=== PATIENT | male | born 1955 | race American Indian/Alaskan Native ===

== ENCOUNTER 2022-01-04 00:30 | Inpatient (IN) | payer OTHER ==
[2022-01-04] MEDS ORDERED: MORPHINE 4 MG/1 ML INJ IV ONE (02:43)
[2022-01-04] MEDS ORDERED: FAMOTIDINE 20 MG/2 ML INJ IV ONE (02:43)
[2022-01-04] MEDS ORDERED: SUCRALFATE 1 GM TAB PO ONE (02:43)
[2022-01-04] MEDS ORDERED: ONDANSETRON 4 MG/2 ML INJ IV ONE ×3 (02:43→05:18)
[2022-01-04 03:38] LABS: Basophils # (Auto) 0.1 K/mm3 (0.0-0.1); Basophils % (Auto) 0.4 % (0.0-1.8); Hemoglobin 14.2 gm/dl (11.8-15.2); Lymphocytes # (Auto) 0.8 K/mm3 (1.2-5.4); Lymphocytes % (Auto) 5.2 % (13.4-35.0); Mean Corpuscular HGB Conc 34 % (32-34); Mean Corpuscular Volume 93 fl (84-94); Monocytes # (Auto) 1.5 K/mm3 (0.0-0.8); Monocytes % (Auto) 9.3 % (0.0-7.3); Platelet Count 210 K/mm3 (140-440); Red Blood Count 4.51 M/mm3 (3.65-5.03); Red Cell Distribution Width 13.6 % (13.2-15.2)
[2022-01-04 04:03] LABS: Alanine Aminotransferase 39 units/L (7-56); Albumin 4.2 g/dL (3.9-5); BUN/Creatinine Ratio 14; Blood Urea Nitrogen 14 mg/dL (9-20); Calcium 9.5 mg/dL (8.4-10.2); Hemolysis Index 6
--- NOTE | 2022-01-04 04:10 | Emergency Department Report ---
ED Abdominal Pain HPI - General Chief Complaint: Abdominal Pain Stated Complaint: ABD PAIN Source: patient, EMS Mode of arrival: Ambulatory Limitations: No Limitations - History of Present Illness Initial Comments: Patient is a 66-year-old male with a history of morbid obesity, hypertension, and vjv-iilknwc-jebjbkrzj diabetes who presents to the ED with complaint of acute onset persistent epigastric pain that radiates to the right upper quadrant area with intractable nausea and vomiting for the last 2 days. Patient states that the symptoms have been constant and persistent and that in the last 12 hours and that the pain radiates to the mid posterior thoracic area. The patient states that he has not been able to keep anything down because of persistent pain and vomiting. Patient denies fever, chills, dizziness, syncope, diarrhea, chest pain, shortness of breath, back pain, change in vision, traumatic injury or heavy lifting, hematemesis, hemoptysis, cough, palpitations, testicular pain, hematuria or low back pain. MD Complaint: abdominal pain (Epigastric), other (nausea and vomiting) -: Sudden, days(s) (2) Location: RUQ, epigastric Radiation: RUQ, epigastric, back (Mid posterior thoracic area) Migration to: no migration Severity: severe Severity scale (0 -10): 10 Quality: cramping, aching, sharp Consistency: constant Improves With: nothing Worsens With: vomiting Context: possible food poisoning Associated Symptoms: denies other symptoms, nausea, vomiting, anorexia. denies: diarrhea, fever, chills, constipation, dysuria, hematemesis, hematochezia, melena, hematuria, syncope - Related Data Allergies Allergy/AdvReac Type Severity Reaction Status Date / Time No Known Allergies Allergy Verified 01/04/22 02:46 ED Review of Systems ROS: Stated complaint: ABD PAIN Other details as noted in HPI Constitutional: denies: chills, fever Eyes: denies: eye pain, eye discharge, vision change ENT: denies: ear pain, throat pain Respiratory: denies: cough, shortness of breath, wheezing Cardiovascular: denies: chest pain, palpitations Endocrine: no symptoms reported Gastrointestinal: abdominal pain (epigastric pain), nausea, vomiting. denies: diarrhea, constipation, hematemesis, hematochezia Genitourinary: denies: urgency, dysuria Musculoskeletal: denies: back pain, joint swelling, arthralgia Skin: denies: rash, lesions Neurological: denies: headache, weakness, paresthesias Psychiatric: denies: anxiety, depression Hematological/Lymphatic: denies: easy bleeding, easy bruising ED Past Medical Hx - Past Medical History Previous Medical History?: Yes Hx Hypertension: Yes Hx Diabetes: Yes ED Physical Exam - General Limitations: No Limitations General appearance: alert, in no apparent distress - Head Head exam: Present: atraumatic, normocephalic, normal inspection - Eye Eye exam: Present: normal appearance, PERRL, EOMI Pupils: Present: normal accommodation - ENT ENT exam: Present: normal exam, normal orophraynx, mucous membranes moist, TM's normal bilaterally, normal external ear exam - Neck Neck exam: Present: normal inspection, full ROM. Absent: tenderness - Respiratory Respiratory exam: Present: normal lung sounds bilaterally. Absent: respiratory distress, wheezes, rales, rhonchi, chest wall tenderness, accessory muscle use, decreased breath sounds, prolonged expiratory - Cardiovascular Cardiovascular Exam: Present: normal rhythm, tachycardia, normal heart sounds. Absent: systolic murmur, diastolic murmur, rubs, gallop - GI/Abdominal GI/Abdominal exam: Present: soft, tenderness (Palpable epigastric and right upper quadrant tenderness), normal bowel sounds. Absent: guarding, rebound, hyperactive bowel sounds, hypoactive bowel sounds, organomegaly, mass, bruit, pulsatile mass - Extremities Exam Extremities exam: Present: normal inspection, full ROM, normal capillary refill. Absent: tenderness - Back Exam Back exam: Present: normal inspection, full ROM. Absent: tenderness, CVA tenderness (R), CVA tenderness (L), muscle spasm, paraspinal tenderness, vertebral tenderness - Neurological Exam Neurological exam: Present: alert, oriented X3, CN II-XII intact, normal gait, reflexes normal - Psychiatric Psychiatric exam: Present: normal affect, normal mood - Skin Skin exam: Present: warm, dry, intact, normal color. Absent: rash ED Course Vital Signs 01/04/22 01/04/22 00:30 03:14 Temperature 98.2 F Pulse Rate 102 H Respiratory 16 16 Rate Blood Pressure 140/80 [Right] O2 Sat by Pulse 98 Oximetry - Reevaluation(s) Reevaluation #1: 01/04/22 05:07 I paged and discussed the patient's case with Dr. Segundo Andres the general surgeon on-call who advised the patient be treated with IV antibiotics and pain medication as well as IV fluids and that the hospitalist physician on-call admit the patient for evaluation and that Dr. Raymond shall consult on the patient upon a dmission. 01/04/22 05:08 ED Medical Decision Making - Lab Data Result diagrams: 01/04/22 03:06 01/04/22 03:06 - Radiology Data Radiology results: report reviewed, image reviewed [facility] [address] [place] [address] Cat Scan Report Signed Patient: IRVIN KONG MR#: [id number] : 1955 Acct:[id number] Age/Sex: 66 / M ADM Date: 01/04/22 Loc: ED Attending Dr: Ordering Physician: MAGED HERNANDEZ Date of Service: 01/04/22 Procedure(s): CT abdomen pelvis w con Accession Number(s): [id number] cc: MAGED HERNANDEZ CT abdomen pelvis w con INDICATION / CLINICAL INFORMATION: epigastric pain. TECHNIQUE: Axial CT images were obtained through the abdomen and pelvis after 100 cc of Omnipaque [address] scans at this location are performed using CT dose reduction for ALARA by means of automated exposure control. COMPARISON: None available. FINDINGS: LOWER CHEST: Bibasilar volume loss. LIVER: Hepatic steatosis. GALLBLADDER/BILIARY TREE: Gallbladder is distended with layering sludge and stones with gallbladder wall thickening and pericholecystic stranding. Common bile duct is normal in caliber. PANCREAS: No significant abnormality SPLEEN: No significant abnormality ADRENALS: No significant abnormality RIGHT KIDNEY / URETER: Nonobstructive right nephrolithiasis. Tiny right renal cyst. No acute findings. LEFT KIDNEY / URETER: Nonobstructive left nephrolithiasis. No hydronephrosis. URINARY BLADDER: Bladder is partially decompressed, though grossly unr emarkable. REPRODUCTIVE ORGANS: No significant abnormality STOMACH / BOWEL: Small bowel is normal in caliber. The colon is unremarkable. The appendix is normal in caliber. LYMPH NODES: No significant adenopathy. VASCULATURE: No significant abnormality. OTHER: No free air, free fluid, or focal fluid collection is identified. SKELETAL SYSTEM: No acute osseous findings. IMPRESSION: 1. Findings consistent with acute cholecystitis. 2. No other acute findings. 2. Hepatic steatosis. 4. Nonoperative bilateral nephrolithiasis. No urolithiasis or hydronephrosis. Signer Name: Hugh Spangler MD Signed: 01/04/2022 4:35 AM Workstation Name: [id number] Transcribed By: NIKOLAS Dictated By: HUGH SPANGLER MD Electronically Authenticated By: HUGH SPANGLER MD Signed Date/Time: 01/04/22434 DD/ 1 TD/TT: - Medical Decision Making This is a 66-year-old male with a history of morbid obesity, hypertension, and wjz-gtblorv-qrojqvpzv diabetes who presents to the ED with complaint of acute onset persistent epigastric pain that radiates to the right upper quadrant area with intractable nausea and vomiting for the last 2 days. Patient states that the symptoms have been constant and persistent and that in the last 12 hours and that the pain radiates to the mid posterior thoracic area. The patient states that he has not been able to keep anything down because of persistent pain and vomiting. In the ED, patient is alert and oriented x3 and is not in any distress. Patient appears to be in pain. Patient was treated for pain and also given antacids, antiemetics as well as normal saline 1 L IV bolus x1. Lab test results were reviewed and showed acute leukocytosis of 15,900, total bilirubin of 2.70, and AST of 86. The abdomen pelvis CT scan with IV contrast showed findings consistent with acute cholecystitis, hepatic steatosis and nonoperative bilateral nephrolithiasis. No urolithiasis or hydronephrosis. On reevaluation, patient pain and nausea and vomiting is well controlled medication. Patient was treated also in the ED with Zosyn 3.375 g IV x1. Patient was Case was discussed with the general surgeon on-call Dr. Segundo Andres who advised that the patient was given IV antibiotics, pain medication with normal saline IV fluids and that the hospitalist physician on-call be paged to admit the patient and he shall consult on the patient upon admission. I therefore paged and discussed the patient case with the GI hospitalist physician on-call Dr. Dennis who admitted the patient to the hospital. - Differential Diagnosis GERD; Pancreatitis; Gallstones; gastritis; cholecystitis Critical care attestation.: If time is entered above; I have spent that time in minutes in the direct care of this critically ill patient, excluding procedure time. ED Disposition Clinical Impression: Abdominal pain, acute, epigastric, Nausea and vomiting in adult patient, Cholelithiasis and acute cholecystitis without obstruction Disposition: 01 HOME / SELF CARE / HOMELESS Is pt being admited?: No Does the pt Need Aspirin: No Condition: Stable Instructions: Nausea and Vomiting, Adult, [id number], Abdominal Pain, Adult, [id number], Cholecystitis, [id number] Referrals: [facility] [Provider Group] - 7-10 days Time of Disposition: 04:10 Print Language: MALTESE
--- NOTE | 2022-01-04 04:40 | Cat Scan Report ---
CT abdomen pelvis w con INDICATION / CLINICAL INFORMATION: epigastric pain. TECHNIQUE: Axial CT images were obtained through the abdomen and pelvis after 100 cc of Omnipaque [address] scans at this location are performed using CT dose reduction for ALARA by means of automated exposure control. COMPARISON: None available. FINDINGS: LOWER CHEST: Bibasilar volume loss. LIVER: Hepatic steatosis. GALLBLADDER/BILIARY TREE: Gallbladder is distended with layering sludge and stones with gallbladder w all thickening and pericholecystic stranding. Common bile duct is normal in caliber. PANCREAS: No significant abnormality SPLEEN: No significant abnormality ADRENALS: No significant abnormality RIGHT KIDNEY / URETER: Nonobstructive right nephrolithiasis. Tiny right renal cyst. No acute findings . LEFT KIDNEY / URETER: Nonobstructive left nephrolithiasis. No hydronephrosis. URINARY BLADDER: Bladder is partially decompressed, though grossly unremarkable. REPRODUCTIVE ORGANS: No significant abnormality STOMACH / BOWEL: Small bowel is normal in caliber. The colon is unremarkable. The appendix is normal in caliber. LYMPH NODES: No significant adenopathy. VASCULATURE: No significant abnormality. OTHER: No free air, free fluid, or focal fluid collection is identified. SKELETAL SYSTEM: No acute osseous findings. IMPRESSION: 1. Findings consistent with acute cholecystitis. 2. No other acute findings. 2. Hepatic steatosis. 4. Nonoperative bilateral nephrolithiasis. No urolithiasis or hydronephrosis. Signer Name: Alonzo Spangler MD Signed: 01/04/2022 4:35 AM Workstation Name: [id number]
[2022-01-04] MEDS ORDERED: PIPERACILLIN/TAZOBACTAM 3.375 3.375 GM/50 ML BAG IV ONE (04:50)
[2022-01-04 05:00] LABS: Bacteria,Urine 1+ /HPF (Negative); Hyaline Casts,Urine 4 /LPF; Mucus,Urine 3+ /HPF
[2022-01-04] MEDS ORDERED: HYDROmorphone 0.5 MG/0.5 ML INJ IV PRN (05:15)
[2022-01-04] MEDS ORDERED: METOCLOPRAMIDE 10 MG/2 ML INJ IV PRN (05:15)
[2022-01-04] MEDS ORDERED: HYDROmorphone 1 MG/1 ML INJ IV ONE (05:18)
[2022-01-04] MEDS: ACETAMINOPHEN 325 MG TAB PO PRN (05:36)
[2022-01-04 06:13] LABS: Bilirubin,Urine Small (Negative); Blood,Urine Trace (Negative); Color,Urine Amber (Yellow); Ictotest,Urine Positive (Negative); Urobilinogen,Urine < 2.0 mg/dL (<2.0)
--- NOTE | 2022-01-04 08:04 | History and Physical Report ---
History of Present Illness Date of examination: 01/04/22 Date of admission: 01/04/2022 Chief complaint: Epigastric pain associated with nausea vomiting of 2 days duration History of present illness: CT abdomen and pelvis with contrast findings consistent with acute cho lecystitis, hepatic steatosis, nonoperative bilateral nephrolithiasis without hydronephrosis Morbidly obese 66-year-old male patient with no significant past medical history. Not on any medications follows with [facility] presented to the emergency room with abdominal pain associated with nausea vomiting for the last 2 days Patient's pain is mainly epigastric area and right upper quadrant, Patient has vomited 2 to 3 x 24 hours just liquid no hematemesis or melena, denies diarrhea. Patient had COVID-pneumonia few months ago where he was admitted to [facility]ator followed by rehab stay for 1 and half months Patient did not have similar symptoms in the past. Initial evaluation in the emergency room with CT abdomen and pelvis with contrast findings consistent with acute cholecystitis. ER physician has already contacted surgeon Dr. Raymond, patient is n.p.o. status Past History Past Medical History: denies: diabetes, hypertension Past Surgical History: Other (Collapsed lung status post surgery, low back surgery) Social history: denies: smoking, alcohol abuse, prescription drug abuse Family history: no significant family history Medications and Allergies Allergies Allergy/AdvReac Type Severity Reaction Status Date / Time No Known Allergies Allergy Verified 01/04/22 02:46 Home Medications Medication Instructions Recorded Confirmed Last Taken Type No Known Home Medications [No 01/04/22 01/04/22 Unknown History Reported Home Medications] Active Meds: Active Medications Acetaminophen (Acetaminophen 325 Mg Tab) 650 mg PO Q4H PRN PRN Reason: Pain MILD(1-3)/Fever >100.5/HIGUERA Last Admin: 01/04/22 05:36 Dose: 650 mg Hydromorphone HCl (Hydromorphone 0.5 Mg/0.5 Ml Inj) 0.5 mg IV Q3H PRN PRN Reason: Pain , Severe (7-10) Sodium Chloride (Nacl 0.9% 1000 Ml) 1,000 mls @ 125 mls/hr IV DIRECT ZEB Metoclopramide HCl (Metoclopramide 10 Mg/2 Ml Inj) 10 mg IV Q6H PRN PRN Reason: Nausea And Vomiting Last Admin: 01/04/22 05:36 Dose: 10 mg Sodium Chloride (Sodium Chloride 0.9% 10 Ml Flush Syringe) 10 ml IV BID ZEB Review of Systems Constitutional: no weight loss, no weight gain, no fever, no chills Ears, nose, mouth and throat: no nasal congestion, no nasal discharge Cardiovascular: no chest pain, no orthopnea, no palpitations Respiratory: no cough, no shortness of breath Gastrointestinal: abdominal pain, nausea, vomiting Genitourinary Male: no dysuria, no hematuria Musculoskeletal: no myalgias, no arthritis Integumentary: no rash, no lesions Neurological: no tingling, no seizures, no syncope Psychiatric: no anxiety, no depression Endocrine: no cold intolerance, no heat intolerance Hematologic/Lymphatic: no easy bruising, no easy bleeding Allergic/Immunologic: no urticaria, no allergic rhinitis Exam - Constitutional Vitals: Temp Pulse Resp BP Pulse Ox 98.2 F 102 H 22 140/80 98 01/04/22 00:30 01/04/22 00:30 01/04/22 05:38 01/04/22 00:30 01/04/22 00:30 General appearance: Present: no acute distress, obese - EENT Eyes: Present: PERRL, EOM intact - Neck Neck: Present: supple, normal ROM - Respiratory Respiratory effort: normal Respiratory: bilateral: diminished, negative: rales, rhonchi, wheezing - Cardiovascular Rhythm: regular Heart Sounds: Present: S1 & S2 - Extremities Extremities: no ischemia, No edema - Abdominal General gastrointestinal: Present: soft, tender (Vague tenderness epigastrium and right upper quadrant) - Integumentary Integumentary: Present: clear, warm - Musculoskeletal Musculoskeletal: strength equal bilaterally - Psychiatric Psychiatric: appropriate mood/affect, cooperative - Neurologic Neurologic: moves all extremities HEART Score - HEART Score Troponin: Troponin T < 0.010 ng/mL (0.00-0.029) 01/04/22 03:06 Results - Labs CBC & Chem 7: 01/05/22 04:40 01/05/22 04:40 Labs: Abnormal lab results 01/04/22 01/04/22 01/04/22 Range/Units 03:06 03:06 Unknown WBC 15.9 H (4.5-11.0) K/mm3 Lymph % (Auto) 5.2 L (13.4-35.0) % [place] % (Auto) 9.3 H (0.0-7.3) % Lymph # (Auto) 0.8 L (1.2-5.4) K/mm3 [place] # (Auto) 1.5 H (0.0-0.8) K/mm3 Seg Neutrophils % 85.1 H (40.0-70.0) % Seg Neutrophils # 13.5 H (1.8-7.7) K/mm3 Glucose 201 H (75-100) mg/dL Total Bilirubin 2.70 H (0.1-1.2) mg/dL AST 86 H (5-40) units/L Ur Specific [place] 1.035 H (1.003-1.030) Urine WBC (Auto) 7.0 H (0.0-6.0) /HPF Assessment and Plan -- Acute cholecystitis Surgery evaluation noted and appreciated Advised clear liquids, patient's symptoms improved Supportive care -- Intractable nausea vomiting; Due to acute cholecystitis Treat the underlying cause IV fluids, antiemetics and supportive care -- Hypertension; IV hydralazine as needed Closely monitor blood pressures -- Hyperglycemia; Accu-Chek sliding scale coverage Check A1c. Closely monitor -- Morbid obesity; BMI 46.6 Patient advised diet modification, exercise as tolerated And weight reduction when he is medically stable Patient may benefit from bariatric surgical consultation as outpatient When he is medically stable for weight reduction program -- Full CODE STATUS; Advance care planning; I extensively discussed with the patient His diagnosis, I discussed with treatment plan, I discussed the surgery consult and possible surgical procedure I discussed with hospital stay and discharge planning when he is medically stable He had numerous questions I answered all of them, additional 32 minutes Closely monitor the patient and adjust management as needed Plan of care reviewed with the patient and his nurse follow surgical consult and recommendations I spent total 62 minutes coordinating this admission
[2022-01-04] MEDS ORDERED: ONDANSETRON 4 MG/2 ML INJ IV PRN ×2 (08:21→10:00)
[2022-01-04] MEDS: SODIUM CHLORIDE 0.9% 1000 ML 1,000 ML IV SCH (08:45)
[2022-01-04] MEDS ORDERED: MORPHINE 4 MG/1 ML INJ IV PRN (10:00)
[2022-01-04] MEDS ORDERED: hydrALAZINE 20 MG/1 ML INJ IV PRN (10:00)
--- NOTE | 2022-01-04 12:36 | Consultation ---
History of Present Illness Consult date: 01/04/22 Reason for consult: abdominal pain - History of present illness History of present illness: Patient is a 66-year-old male with a history of morbid obesity, hypertension, and ojz-ogjnfln-hmpczmxhf diabetes who presents to the ED with complaint of acute onset persistent epigastric pain that radiates to the right upper quadrant area with intractable nausea and vomiting for the last 2 days. Patient states that the symptoms have been constant and persistent and that in the last 12 hours and that the pain radiates to the mid posterior thoracic area. The patient states that he has not been able to keep anything down because of persistent pain and vomiting. Patient denies fever, chills, dizziness, syncope, diarrhea, chest pain, shortness of breath, back pain, change in vision, traumatic injury or heavy lifting, hematemesis, hemoptysis, cough, palpitations, testicular pain, hematuria or low back pain. He does have gerd. He denies a hx of jaundice or pancreatitis. Past History Past Medical History: denies: diabetes, hypertension Past Surgical History: Other (Collapsed lung status post surgery, low back surgery) Social history: denies: smoking, alcohol abuse, prescription drug abuse Family history: no significant family history Medications and Allergies Allergies Allergy/AdvReac Type Severity Reaction Status Date / Time No Known Allergies Allergy Verified 01/04/22 02:46 Active Meds: Active Medications Acetaminophen (Acetaminophen 325 Mg Tab) 650 mg PO Q4H PRN PRN Reason: Pain MILD(1-3)/Fever >100.5/HIGUERA Last Admin: 01/04/22 05:36 Dose: 650 mg Enoxaparin Sodium (Enoxaparin 40 Mg/0.4 Ml Inj) 40 mg SUB-Q QDAY@2200 ZEB; Protocol Hydralazine HCl (Hydralazine 20 Mg/1 Ml Inj) 10 mg IV Q4HR PRN PRN Reason: Hypertension Hydromorphone HCl (Hydromorphone 0.5 Mg/0.5 Ml Inj) 0.5 mg IV Q3H PRN PRN Reason: Pain , Severe (7-10) Last Admin: 01/04/22 11:33 Dose: 0.5 mg Sodium Chloride (Nacl 0.9% 1000 Ml) 1,000 mls @ 125 mls/hr IV DIRECT ZEB Last Admin: 01/04/22 08:45 Dose: 125 mls/hr Piperacillin Sod/Tazobactam Sod (Zosyn/Ns 4.5gm/100ml) 4.5 gm in 100 mls @ 200 mls/hr IV Q8H ZEB; Protocol Ibuprofen (Ibuprofen 600 Mg Tab) 600 mg PO Q6H PRN PRN Reason: Pain, Mild (1-3) Metoclopramide HCl (Metoclopramide 10 Mg/2 Ml Inj) 10 mg IV Q6H PRN PRN Reason: Nausea And Vomiting Last Admin: 01/04/22 05:36 Dose: 10 mg Morphine Sulfate (Morphine 2 Mg/1 Ml Inj) 2 mg IV Q4H PRN PRN Reason: Pain, Moderate (4-6) Morphine Sulfate (Morphine 4 Mg/1 Ml Inj) 4 mg IV Q4H PRN PRN Reason: Pain , Severe (7-10) Ondansetron HCl (Ondansetron 4 Mg/2 Ml Inj) 4 mg IV Q4H PRN PRN Reason: Nausea And Vomiting Sodium Chloride (Sodium Chloride 0.9% 10 Ml Flush Syringe) 10 ml IV BID [facility] Exam Vital Signs Temp Pulse Resp BP Pulse Ox 98.2 F 102 H 16 140/80 98 01/04/22 00:30 01/04/22 00:30 01/04/22 00:30 01/04/22 00:30 01/04/22 00:30 - General physical appearance Positive: well developed, no distress, moderate pain, obese - Neck Positive: no masses, no bruits, trachea midline - Respiratory Positive: normal expansion - Cardiovascular Rhythm: regular - Extremities Extremities: no ischemia, No edema - Abdomen Abdomen: Present: soft, tender, bowel sounds normal. Absent: distended, masses, rebound - Integumentary no rash - Neurologic Neurologic: alert and oriented to time, place and person, motor strength and sensation are grossly intact, CN II-XII intact Results - Labs 01/04/22 03:06 01/04/22 03:06 Abnormal lab results 01/04/22 01/04/22 01/04/22 Range/Units 03:06 03:06 Unknown WBC 15.9 H (4.5-11.0) K/mm3 Lymph % (Auto) 5.2 L (13.4-35.0) % [place] % (Auto) 9.3 H (0.0-7.3) % Lymph # (Auto) 0.8 L (1.2-5.4) K/mm3 [place] # (Auto) 1.5 H (0.0-0.8) K/mm3 Seg Neutrophils % 85.1 H (40.0-70.0) % Seg Neutrophils # 13.5 H (1.8-7.7) K/mm3 Glucose 201 H (75-100) mg/dL Total Bilirubin 2.70 H (0.1-1.2) mg/dL AST 86 H (5-40) units/L Ur Specific [place] 1.035 H (1.003-1.030) Urine WBC (Auto) 7.0 H (0.0-6.0) /HPF Diabetes panel 01/04/22 Range/Units 03:06 Sodium 143 (137-145) mmol/L Potassium 3.7 (3.6-5.0) mmol/L Chloride 101.1 (98-107) mmol/L Carbon Dioxide 22 (22-30) mmol/L BUN 14 (9-20) mg/dL Creatinine 1.0 (0.8-1.3) mg/dL Glucose 201 H (75-100) mg/dL Calcium 9.5 (8.4-10.2) mg/dL AST 86 H (5-40) units/L ALT 39 (7-56) units/L Alkaline Phosphatase 88 (35-129) units/L Total Protein 7.3 (6.3-8.2) g/dL Albumin 4.2 (3.9-5) g/dL Calcium panel 01/04/22 Range/Units 03:06 Calcium 9.5 (8.4-10.2) mg/dL Albumin 4.2 (3.9-5) g/dL Pituitary panel 01/04/22 Range/Units 03:06 Sodium 143 (137-145) mmol/L Potassium 3.7 (3.6-5.0) mmol/L Chloride 101.1 (98-107) mmol/L Carbon Dioxide 22 (22-30) mmol/L BUN 14 (9-20) mg/dL Creatinine 1.0 (0.8-1.3) mg/dL Glucose 201 H (75-100) mg/dL Calcium 9.5 (8.4-10.2) mg/dL Adrenal panel 01/04/22 Range/Units 03:06 Sodium 143 (137-145) mmol/L Potassium 3.7 (3.6-5.0) mmol/L Chloride 101.1 (98-107) mmol/L Carbon Dioxide 22 (22-30) mmol/L BUN 14 (9-20) mg/dL Creatinine 1.0 (0.8-1.3) mg/dL Glucose 201 H (75-100) mg/dL Calcium 9.5 (8.4-10.2) mg/dL Total Bilirubin 2.70 H (0.1-1.2) mg/dL AST 86 H (5-40) units/L ALT 39 (7-56) units/L Alkaline Phosphatase 88 (35-129) units/L Total Protein 7.3 (6.3-8.2) g/dL Albumin 4.2 (3.9-5) g/dL Assessment and Plan Pt with acute calculous cholecystitis. No pancreatitis no jaundice. Pain already with signs of improvement. Will advance to clear liq diet at thsi time. Cont iv ab for leukocytosis. OK to try low fat diet later today.
--- NOTE | 2022-01-04 14:46 | XRay Report ---
CHEST 2 VIEWS INDICATION: Routine prior to surgery. COMPARISON: None FINDINGS: SUPPORT DEVICES: None. HEART: Within normal limits. LUNGS/PLEURA: Minimal patchy left greater than right basilar airspace disease with mild elevation of the right hemidiaphragm. No pneumothorax. ADDITIONAL FINDINGS: None. IMPRESSION: 1. Lung findings as above. Signer Name: Ryan Solis MD Signed: 01/04/2022 2:42 PM Workstation Name: [id number]
[2022-01-04] MEDS: PIPERACIL/TAZOBACTA 4.5/NS 100 4.5 GM/100 ML VIAL IV SCH ×2 (15:34→20:47)
[2022-01-04] MEDS: MORPHINE 2 MG/1 ML INJ IV PRN (20:40)
[2022-01-04] MEDS: ENOXAPARIN 40 MG/0.4 ML INJ SUB-Q SCH (21:00)
[2022-01-05] MEDS: SODIUM CHLORIDE 0.9% 1000 ML 1,000 ML IV SCH (02:14)
[2022-01-05 04:54] LABS: Basophils # (Auto) 0.1 K/mm3 (0.0-0.1); Basophils % (Auto) 0.4 % (0.0-1.8); Hematocrit 43.8 % (35.5-45.6); Hemoglobin 14.5 gm/dl (11.8-15.2); Lymphocytes % (Auto) 7.3 % (13.4-35.0); Mean Corpuscular HGB Conc 33 % (32-34); Mean Corpuscular Volume 95 fl (84-94); Monocytes # (Auto) 1.1 K/mm3 (0.0-0.8); Monocytes % (Auto) 7.7 % (0.0-7.3); Platelet Count 164 K/mm3 (140-440); Red Blood Count 4.63 M/mm3 (3.65-5.03); Red Cell Distribution Width 13.8 % (13.2-15.2)
[2022-01-05 05:17] LABS: BUN/Creatinine Ratio 15; Blood Urea Nitrogen 12 mg/dL (9-20); Hemolysis Index 73
[2022-01-05] MEDS: PIPERACIL/TAZOBACTA 4.5/NS 100 4.5 GM/100 ML VIAL IV SCH ×3 (05:40→21:40)
[2022-01-05] MEDS: MORPHINE 2 MG/1 ML INJ IV PRN ×2 (05:40→21:41)
[2022-01-05] MEDS: IBUPROFEN 600 MG TAB PO PRN (09:47)
--- NOTE | 2022-01-05 10:48 | Progress Note ---
Assessment and Plan Pt with acute calculous cholecystitis. No pancreatitis no jaundice. Pain already with signs of improvement. Will advance to clear liq diet at thsi time. Cont iv ab for leukocytosis. Patient did not get the low-fat diet requested last night. We will attempt to advance diet today. If no pain patient can be discharged tomorrow. White count also remains elevated at 12,000. Continue IV antibiotics through the next 24 hours. Subjective Date of service: 01/05/22 Patient Reports: Positive: no new complaints, feels better Narrative: Patient did not get the low-fat diet requested last night. We will attempt to advance diet today. If no pain patient can be discharged tomorrow. White count also remains elevated at 12,000. Continue IV antibiotics through the next 24 hours. Objective Vital Signs - 12hr 01/04/22 01/05/22 01/05/22 23:54 04:19 05:40 Temperature 97.8 F 97.9 F Pulse Rate 109 H 110 H Respiratory 28 H 28 H 20 Rate Blood Pressure 127/71 117/60 O2 Sat by Pulse 87 91 Oximetry 01/05/22 07:43 Temperature 98.1 F Pulse Rate 107 H Respiratory 17 Rate Blood Pressure 98/55 O2 Sat by Pulse 93 Oximetry - Labs 01/05/22 04:40 01/05/22 04:40 Diabetes panel 01/05/22 Range/Units 04:40 Sodium 138 (137-145) mmol/L Potassium 4.4 (3.6-5.0) mmol/L Chloride 101.2 (98-107) mmol/L Carbon Dioxide 26 (22-30) mmol/L BUN 12 (9-20) mg/dL Creatinine 0.8 (0.8-1.3) mg/dL Glucose 124 H (75-100) mg/dL Calcium 9.0 (8.4-10.2) mg/dL Calcium panel 01/05/22 Range/Units 04:40 Calcium 9.0 (8.4-10.2) mg/dL Pituitary panel 01/05/22 Range/Units 04:40 Sodium 138 (137-145) mmol/L Potassium 4.4 (3.6-5.0) mmol/L Chloride 101.2 (98-107) mmol/L Carbon Dioxide 26 (22-30) mmol/L BUN 12 (9-20) mg/dL Creatinine 0.8 (0.8-1.3) mg/dL Glucose 124 H (75-100) mg/dL Calcium 9.0 (8.4-10.2) mg/dL Adrenal panel 01/05/22 Range/Units 04:40 Sodium 138 (137-145) mmol/L Potassium 4.4 (3.6-5.0) mmol/L Chloride 101.2 (98-107) mmol/L Carbon Dioxide 26 (22-30) mmol/L BUN 12 (9-20) mg/dL Creatinine 0.8 (0.8-1.3) mg/dL Glucose 124 H (75-100) mg/dL Calcium 9.0 (8.4-10.2) mg/dL
--- NOTE | 2022-01-05 18:46 | Progress Note ---
Assessment and Plan Assessment and plan: -- Acute cholecystitis/symptoms improved Surgery evaluation noted and appreciated On clear liquids, surgeon advance diet to regular diet this afternoon Continue current management -- Intractable nausea vomiting; resolved Supportive care -- Hypertension; IV hydralazine as needed Closely monitor blood pressures -- Hyperglycemia; Accu-Chek sliding scale coverage Check A1c. Closely monitor -- Morbid obesity; BMI 46.6 Patient advised diet modification, exercise as tolerated And weight reduction when he is medically stable Patient may benefit from bariatric surgical consultation as outpatient When he is medically stable for weight reduction program -- Full CODE STATUS; Advance care planning; I extensively discussed with the patient His diagnosis, I discussed with treatment plan, I discussed the surgery consult and possible surgical procedure I discussed with hospital stay and discharge planning when he is medically stable He had numerous questions I answered all of them, additional 32 minutes Closely monitor the patient and adjust management as needed Plan of care reviewed with the patient and his nurse follow surgical consult and recommendations Closely monitor the patient and adjust management as needed Possible discharge in 1 to 2 days if patient continues to improve Surgeons recommendations noted and appreciated Plan of care reviewed with the patient and his nurse History Interval history: I have seen and examined the patient at the bedside this morning Patient's chart and medications reviewed, Tolerating clear liquids Patient feels slightly better denies any abdominal pain/nausea vomiting However complains of some back pain and right shoulder pain Vital signs reviewed Hospitalist Physical - Constitutional Vitals: Temp Pulse Resp BP Pulse Ox 98.2 F 105 H 16 109/43 92 01/05/22 11:10 01/05/22 11:10 01/05/22 11:10 01/05/22 11:10 01/05/22 11:10 General appearance: Present: no acute distress, well-nourished, obese - EENT Eyes: Present: PERRL, EOM intact - Neck Neck: Present: supple, normal ROM - Respiratory Respiratory effort: normal Respiratory: bilateral: diminished, negative: rales, rhonchi, wheezing - Cardiovascular Rhythm: regular Heart Sounds: Present: S1 & S2 - Extremities Extremities: no ischemia, No edema - Abdominal General gastrointestinal: soft, non-tender, non-distended, normal bowel sounds - Integumentary Integumentary: Present: clear, warm - Psychiatric Psychiatric: appropriate mood/affect, cooperative - Neurologic Neurologic: moves all extremities HEART Score - HEART Score Troponin: Troponin T < 0.010 ng/mL (0.00-0.029) 01/04/22 03:06 Results - Labs CBC & Chem 7: 01/05/22 04:40 01/05/22 04:40 Labs: Laboratory Last Values WBC 13.8 K/mm3 (4.5-11.0) H 01/05/22 04:40 RBC 4.63 M/mm3 (3.65-5.03) 01/05/22 04:40 Hgb 14.5 gm/dl (11.8-15.2) 01/05/22 04:40 Hct 43.8 % (35.5-45.6) 01/05/22 04:40 MCV 95 fl (84-94) H 01/05/22 04:40 MCH 31 pg (28-32) 01/05/22 04:40 MCHC 33 % (32-34) 01/05/22 04:40 RDW 13.8 % (13.2-15.2) 01/05/22 04:40 Plt Count 164 K/mm3 (140-440) 01/05/22 04:40 Lymph % (Auto) 7.3 % (13.4-35.0) L 01/05/22 04:40 [place] % (Auto) 7.7 % (0.0-7.3) H 01/05/22 04:40 Eos % (Auto) 0.0 % (0.0-4.3) 01/05/22 04:40 Baso % (Auto) 0.4 % (0.0-1.8) 01/05/22 04:40 Lymph # (Auto) 1.0 K/mm3 (1.2-5.4) L 01/05/22 04:40 [place] # (Auto) 1.1 K/mm3 (0.0-0.8) H 01/05/22 04:40 Eos # (Auto) 0.0 K/mm3 (0.0-0.4) 01/05/22 04:40 Baso # (Auto) 0.1 K/mm3 (0.0-0.1) 01/05/22 04:40 Seg Neutrophils % 84.6 % (40.0-70.0) H 01/05/22 04:40 Seg Neutrophils # 11.7 K/mm3 (1.8-7.7) H 01/05/22 04:40 Sodium 138 mmol/L (137-145) 01/05/22 04:40 Potassium 4.4 mmol/L (3.6-5.0) 01/05/22 04:40 Chloride 101.2 mmol/L (98-107) 01/05/22 04:40 Carbon Dioxide 26 mmol/L (22-30) 01/05/22 04:40 Anion Gap 15 mmol/L 01/05/22 04:40 BUN 12 mg/dL (9-20) 01/05/22 04:40 Creatinine 0.8 mg/dL (0.8-1.3) 01/05/22 04:40 Estimated GFR > 60 ml/min 01/05/22 04:40 BUN/Creatinine Ratio 15 % 01/05/22 04:40 Glucose 124 mg/dL (75-100) H 01/05/22 04:40 POC Glucose 110 mg/dL (70-105) H 01/04/22 16:47 Calcium 9.0 mg/dL (8.4-10.2) 01/05/22 04:40 Total Bilirubin 2.70 mg/dL (0.1-1.2) H 01/04/22 03:06 AST 86 units/L (5-40) H 01/04/22 03:06 ALT 39 units/L (7-56) 01/04/22 03:06 Alkaline Phosphatase 88 units/L (35-129) 01/04/22 03:06 Troponin T < 0.010 ng/mL (0.00-0.029) 01/04/22 03:06 Total Protein 7.3 g/dL (6.3-8.2) 01/04/22 03:06 Albumin 4.2 g/dL (3.9-5) 01/04/22 03:06 Albumin/Globulin Ratio 1.4 % 01/04/22 03:06 Lipase 19 units/L (13-60) 01/04/22 03:06 Urine Color [place] (Yellow) 01/04/22 Unknown Urine Turbidity Cloudy (Clear) 01/04/22 Unknown Urine pH 5.0 (5.0-7.0) 01/04/22 Unknown Ur Specific [place] 1.035 (1.003-1.030) H 01/04/22 Unknown Urine Protein 100 mg/dl mg/dL (Negative) 01/04/22 Unknown Urine Glucose (UA) Negative mg/dL (Negative) 01/04/22 Unknown Urine Ketones Negative mg/dL (Negative) 01/04/22 Unknown Urine Blood Trace (Negative) 01/04/22 Unknown Urine Nitrite Negative (Negative) 01/04/22 Unknown Ur Reducing Substances Not Reportable 01/04/22 Unknown Urine Bilirubin Small (Negative) 01/04/22 Unknown Urine Ictotest Positive (Negative) 01/04/22 Unknown Urine Urobilinogen < 2.0 mg/dL (<2.0) 01/04/22 Unknown Ur Leukocyte Esterase Negative (Negative) 01/04/22 Unknown Urine WBC (Auto) 7.0 /HPF (0.0-6.0) H 01/04/22 Unknown Urine RBC (Auto) 8.0 /HPF (0.0-6.0) 01/04/22 Unknown U Epithel Cells (Auto) 1.0 /HPF (0-13.0) 01/04/22 Unknown Urine Bacteria (Auto) 1+ /HPF (Negative) 01/04/22 Unknown Hyaline Casts 4 /LPF 01/04/22 Unknown Urine Mucus 3+ /HPF 01/04/22 Unknown Active Medications - Current Medications Current Medications: Generic Name Dose Route Start Last Admin Trade Name Freq PRN Reason Stop Dose Admin Acetaminophen 650 mg 01/04/22 05:15 01/04/22 05:36 Acetaminophen 325 Mg Tab PO 650 mg Q4H PRN Administration Pain MILD(1-3)/Fever >100.5/HIGUERA Enoxaparin Sodium 40 mg 01/04/22 22:00 01/04/22 21:00 Enoxaparin 40 Mg/0.4 Ml Inj SUB-Q 40 mg QDAY@2200 ZEB Administration Protocol Hydralazine HCl 10 mg 01/04/22 10:00 Hydralazine 20 Mg/1 Ml Inj IV Q4HR PRN Hypertension Sodium Chloride 1,000 mls @ 125 mls/hr 01/04/22 05:15 01/05/22 02:14 Nacl 0.9% 1000 Ml IV 125 mls/hr DIRECT ZEB Administration Piperacillin Sod/Tazobactam Sod 4.5 gm in 100 mls @ 200 mls/hr 01/04/22 12:00 01/05/22 13:16 Zosyn/Ns 4.5gm/100ml IV 200 mls/hr Q8H ZEB Administration Protocol Ibuprofen 600 mg 01/04/22 10:00 01/05/22 09:47 Ibuprofen 600 Mg Tab PO 600 mg Q6H PRN Administration Pain, Mild (1-3) Metoclopramide HCl 10 mg 01/04/22 05:15 01/04/22 05:36 Metoclopramide 10 Mg/2 Ml Inj IV 10 mg Q6H PRN Administration Nausea And Vomiting Morphine Sulfate 2 mg 01/04/22 10:00 01/05/22 05:40 Morphine 2 Mg/1 Ml Inj IV 2 mg Q4H PRN Administration Pain, Moderate (4-6) Morphine Sulfate 4 mg 01/04/22 10:00 Morphine 4 Mg/1 Ml Inj IV Q4H PRN Pain , Severe (7-10) Ondansetron HCl 4 mg 01/04/22 10:00 01/04/22 20:57 Ondansetron 4 Mg/2 Ml Inj IV 4 mg Q4H PRN Administration Nausea And Vomiting Sodium Chloride 10 ml 01/04/22 10:00 01/05/22 09:47 Sodium Chloride 0.9% 10 Ml Flush Syringe IV 10 ml BID ZEB Administration
--- NOTE | 2022-01-05 18:52 | Event Note ---
Date: 01/05/22 Patient's nurse called and reported that patient had some hematuria Will recommend continuous Leblanc catheterization, input output monitoring We will also obtain CT abdomen and pelvis with and without contrast Place the patient n.p.o. from midnight, follow imaging studies Closely monitor overnight and consult urology after imaging studies if needed. Plan of care reviewed with the patient's nurse
[2022-01-05] MEDS: ENOXAPARIN 40 MG/0.4 ML INJ SUB-Q SCH (21:41)
[2022-01-06] MEDS: SODIUM CHLORIDE 0.9% 1000 ML 1,000 ML IV SCH (02:27)
[2022-01-06 05:46] LABS: Basophils # (Auto) 0.1 K/mm3 (0.0-0.1); Basophils % (Auto) 0.4 % (0.0-1.8); Eosinophils % (Auto) 0.2 % (0.0-4.3); Hematocrit 44.1 % (35.5-45.6); Hemoglobin 14.3 gm/dl (11.8-15.2); Lymphocytes # (Auto) 1.1 K/mm3 (1.2-5.4); Lymphocytes % (Auto) 9.7 % (13.4-35.0); Mean Corpuscular HGB Conc 33 % (32-34); Mean Corpuscular Volume 96 fl (84-94); Monocytes # (Auto) 0.9 K/mm3 (0.0-0.8); Monocytes % (Auto) 7.6 % (0.0-7.3); Platelet Count 191 K/mm3 (140-440); Red Blood Count 4.61 M/mm3 (3.65-5.03); Red Cell Distribution Width 14.3 % (13.2-15.2)
[2022-01-06 06:06] LABS: BUN/Creatinine Ratio 15; Blood Urea Nitrogen 15 mg/dL (9-20); Hemolysis Index 5
[2022-01-06] MEDS: PIPERACIL/TAZOBACTA 4.5/NS 100 4.5 GM/100 ML VIAL IV SCH ×3 (06:46→19:32)
--- NOTE | 2022-01-06 08:15 | Progress Note ---
Assessment and Plan Assessment and plan: Assessment and plan; CT abdomen and pelvis with and without contrast; 01/06/2022 reviewed worsening features of acute cholecystitis Bilateral nephrolithiasis without ureteral calculus or hydronephrosis no additional etiology for hematuria Trace right basilar pleural effusion next mild inflammatory stranding edema surrounding pancreas is most likely reactive and secondary to cholecystitis --Hematuria last night; Leblanc catheterization, urine analysis and urine cultures CT abdomen and pelvis with and without contrast Urology consult N.p.o. status, IV fluids -- Acute cholecystitis/symptoms improved Surgery evaluation noted and appreciated On clear liquids, surgeon advance diet to regular diet this afternoon Continue current management -- Intractable nausea vomiting; resolved Supportive care -- Hypertension; IV hydralazine as needed Closely monitor blood pressures -- Hyperglycemia; Accu-Chek sliding scale coverage Check A1c. Closely monitor -- Morbid obesity; BMI 46.6 Patient advised diet modification, exercise as tolerated And weight reduction when he is medically stable Patient may benefit from bariatric surgical consultation as outpatient When he is medically stable for weight reduction program -- Full CODE STATUS; Advance care planning; I extensively discussed with the patient His diagnosis, I discussed with treatment plan, I discussed the surgery consult and possible surgical procedure I discussed with hospital stay and discharge planning when he is medically stable He had numerous questions I answered all of them, additional 32 minutes Closely monitor the patient and adjust management as needed Plan of care reviewed with the patient and his nurse follow surgical consult and recommendations Closely monitor the patient and adjust management as needed Possible discharge in 1 to 2 days if patient continues to improve Surgeons recommendations noted and appreciated Plan of care reviewed with the patient and his nurse 01/05/2022; patient with acute cholecystitis, surgeon following, clear liquids, IV antibiotics Had an episode of hematuria, CT abdomen and pelvis, Leblanc catheterization, urine analysis H&H monitoring 01/07/2020; patient's hematuria significantly improved patient has high colored urine in the urine bag CT abdomen and pelvis with and without contrast findings reviewed no acute renal findings except for chronic renal stones no ureteric stone H&H stable, no active bleeding, no need for urology consult, patient will follow urologist outpatient on discharge, History Interval history: I have seen and examined the patient at the bedside this morning Patient's chart and medications reviewed Patient had an episode of hematuria last night Leblanc catheter was placed this morning with high colored questionable blood in the urine bag H&H is stable CT abdomen and pelvis with and without contrast Hospitalist Physical - Constitutional Vitals: Temp Pulse Resp BP Pulse Ox 97.8 F 99 H 24 93/62 94 01/06/22 04:51 01/06/22 08:04 01/06/22 04:51 01/06/22 08:04 01/06/22 08:04 General appearance: Present: no acute distress, obese HEART Score - HEART Score Troponin: Troponin T < 0.010 ng/mL (0.00-0.029) 01/04/22 03:06 Results - Labs CBC & Chem 7: 01/06/22 05:04 01/06/22 05:04 Labs: Laboratory Last Values WBC 11.4 K/mm3 (4.5-11.0) H 01/06/22 05:04 RBC 4.61 M/mm3 (3.65-5.03) 01/06/22 05:04 Hgb 14.3 gm/dl (11.8-15.2) 01/06/22 05:04 Hct 44.1 % (35.5-45.6) 01/06/22 05:04 MCV 96 fl (84-94) H 01/06/22 05:04 MCH 31 pg (28-32) 01/06/22 05:04 MCHC 33 % (32-34) 01/06/22 05:04 RDW 14.3 % (13.2-15.2) 01/06/22 05:04 Plt Count 191 K/mm3 (140-440) 01/06/22 05:04 Lymph % (Auto) 9.7 % (13.4-35.0) L 01/06/22 05:04 [place] % (Auto) 7.6 % (0.0-7.3) H 01/06/22 05:04 Eos % (Auto) 0.2 % (0.0-4.3) 01/06/22 05:04 Baso % (Auto) 0.4 % (0.0-1.8) 01/06/22 05:04 Lymph # (Auto) 1.1 K/mm3 (1.2-5.4) L 01/06/22 05:04 [place] # (Auto) 0.9 K/mm3 (0.0-0.8) H 01/06/22 05:04 Eos # (Auto) 0.0 K/mm3 (0.0-0.4) 01/06/22 05:04 Baso # (Auto) 0.1 K/mm3 (0.0-0.1) 01/06/22 05:04 Seg Neutrophils % 82.1 % (40.0-70.0) H 01/06/22 05:04 Seg Neutrophils # 9.3 K/mm3 (1.8-7.7) H 01/06/22 05:04 Sodium 141 mmol/L (137-145) 01/06/22 05:04 Potassium 4.1 mmol/L (3.6-5.0) 01/06/22 05:04 Chloride 102.1 mmol/L (98-107) 01/06/22 05:04 Carbon Dioxide 25 mmol/L (22-30) 01/06/22 05:04 Anion Gap 18 mmol/L 01/06/22 05:04 BUN 15 mg/dL (9-20) 01/06/22 05:04 Creatinine 1.0 mg/dL (0.8-1.3) 01/06/22 05:04 Estimated GFR > 60 ml/min 01/06/22 05:04 BUN/Creatinine Ratio 15 % 01/06/22 05:04 Glucose 123 mg/dL (75-100) H 01/06/22 05:04 POC Glucose 110 mg/dL (70-105) H 01/04/22 16:47 Calcium 9.0 mg/dL (8.4-10.2) 01/06/22 05:04 Total Bilirubin 2.70 mg/dL (0.1-1.2) H 01/04/22 03:06 AST 86 units/L (5-40) H 01/04/22 03:06 ALT 39 units/L (7-56) 01/04/22 03:06 Alkaline Phosphatase 88 units/L (35-129) 01/04/22 03:06 Troponin T < 0.010 ng/mL (0.00-0.029) 01/04/22 03:06 Total Protein 7.3 g/dL (6.3-8.2) 01/04/22 03:06 Albumin 4.2 g/dL (3.9-5) 01/04/22 03:06 Albumin/Globulin Ratio 1.4 % 01/04/22 03:06 Lipase 19 units/L (13-60) 01/04/22 03:06 Urine Color [place] (Yellow) 01/04/22 Unknown Urine Turbidity Cloudy (Clear) 01/04/22 Unknown Urine pH 5.0 (5.0-7.0) 01/04/22 Unknown Ur Specific [place] 1.035 (1.003-1.030) H 01/04/22 Unknown Urine Protein 100 mg/dl mg/dL (Negative) 01/04/22 Unknown Urine Glucose (UA) Negative mg/dL (Negative) 01/04/22 Unknown Urine Ketones Negative mg/dL (Negative) 01/04/22 Unknown Urine Blood Trace (Negative) 01/04/22 Unknown Urine Nitrite Negative (Negative) 01/04/22 Unknown Ur Reducing Substances Not Reportable 01/04/22 Unknown Urine Bilirubin Small (Negative) 01/04/22 Unknown Urine Ictotest Positive (Negative) 01/04/22 Unknown Urine Urobilinogen < 2.0 mg/dL (<2.0) 01/04/22 Unknown Ur Leukocyte Esterase Negative (Negative) 01/04/22 Unknown Urine WBC (Auto) 7.0 /HPF (0.0-6.0) H 01/04/22 Unknown Urine RBC (Auto) 8.0 /HPF (0.0-6.0) 01/04/22 Unknown U Epithel Cells (Auto) 1.0 /HPF (0-13.0) 01/04/22 Unknown Urine Bacteria (Auto) 1+ /HPF (Negative) 01/04/22 Unknown Hyaline Casts 4 /LPF 01/04/22 Unknown Urine Mucus 3+ /HPF 01/04/22 Unknown Leblanc/IV: Voiding Method Urinal Active Medications - Current Medications Current Medications: Generic Name Dose Route Start Last Admin Trade Name Freq PRN Reason Stop Dose Admin Acetaminophen 650 mg 01/04/22 05:15 01/04/22 05:36 Acetaminophen 325 Mg Tab PO 650 mg Q4H PRN Administration Pain MILD(1-3)/Fever >100.5/HIGUERA Enoxaparin Sodium 40 mg 01/04/22 22:00 01/05/22 21:41 Enoxaparin 40 Mg/0.4 Ml Inj SUB-Q 40 mg QDAY@2200 ZEB Administration Protocol Hydralazine HCl 10 mg 01/04/22 10:00 Hydralazine 20 Mg/1 Ml Inj IV Q4HR PRN Hypertension Sodium Chloride 1,000 mls @ 125 mls/hr 01/04/22 05:15 01/06/22 02:27 Nacl 0.9% 1000 Ml IV 125 mls/hr DIRECT ZEB Administration Piperacillin Sod/Tazobactam Sod 4.5 gm in 100 mls @ 200 mls/hr 01/04/22 12:00 01/06/22 06:46 Zosyn/Ns 4.5gm/100ml IV 200 mls/hr Q8H ZEB Administration Protocol Ibuprofen 600 mg 01/04/22 10:00 01/05/22 09:47 Ibuprofen 600 Mg Tab PO 600 mg Q6H PRN Administration Pain, Mild (1-3) Metoclopramide HCl 10 mg 01/04/22 05:15 01/04/22 05:36 Metoclopramide 10 Mg/2 Ml Inj IV 10 mg Q6H PRN Administration Nausea And Vomiting Morphine Sulfate 2 mg 01/04/22 10:00 01/05/22 21:41 Morphine 2 Mg/1 Ml Inj IV 2 mg Q4H PRN Administration Pain, Moderate (4-6) Morphine Sulfate 4 mg 01/04/22 10:00 Morphine 4 Mg/1 Ml Inj IV Q4H PRN Pain , Severe (7-10) Ondansetron HCl 4 mg 01/04/22 10:00 01/04/22 20:57 Ondansetron 4 Mg/2 Ml Inj IV 4 mg Q4H PRN Administration Nausea And Vomiting Sodium Chloride 10 ml 01/04/22 10:00 01/05/22 21:46 Sodium Chloride 0.9% 10 Ml Flush Syringe IV 10 ml BID ZEB Administration
--- NOTE | 2022-01-06 10:55 | Cat Scan Report ---
CT ABDOMEN AND PELVIS WITHOUT AND WITH CONTRAST INDICATION / CLINICAL INFORMATION: Hematuria. TECHNIQUE: Axial CT images were obtained through the abdomen before and after 100 mL Omnipaque [address] scans at this location are performed using CT dose reduction for ALARA by means of automated exposure control. COMPARISON: 01/04/2022 CTA abdomen pelvis. FINDINGS: LOWER CHEST: Development of a trace right basilar pleural effusion. Otherwise stable bibasilar chroni c interstitial scarring. LIVER: Diffuse hepatic steatosis without suspicious hepatic mass. GALLBLADDER/BILIARY: Persistent layering gallstones and biliary sludge. Hydropic gallbladder with gael rounding inflammatory stranding that has progressed since the prior exam. Findings are again most con sistent with acute cholecystitis. No evidence for choledocholithiasis or biliary obstruction. PANCREAS: Mild inflammatory stranding/edema surrounding the pancreas is most likely reactive and seco ndary to cholecystitis. Correlation with serum lipase levels may be warranted to completely exclude a mild acute pancreatitis component. SPLEEN: No significant abnormality. ADRENALS: No significant abnormality. KIDNEYS/URETERS: Bilateral nonobstructive nephrolithiasis with renal calculi measuring up to 8 mm. Ne gative for ureteral calculus or hydronephrosis. GI: Scattered colonic diverticulosis without evidence for acute diverticulitis. No other acute bowel inflammation, obstruction or evidence for ischemia. APPENDIX: No significant abnormality. PERITONEUM: Increased free peritoneal fluid, likely reactive associated with acute cholecystitis. Thi s is most prominent within the perihepatic and right paracolic gutter regions. LYMPH NODES: No significant adenopathy. AORTA / ARTERIES: No significant abnormality. The urinary bladder is decompressed by Leblanc catheter. No prostate gland enlargement. SKELETAL SYSTEM: Lumbar degenerative spondylosis without acute or destructive osseous process. ADDITIONAL FINDINGS: None. IMPRESSION: 1. Worsening features of acute cholecystitis with increased surrounding inflammatory stranding and re active ascites. 2. Bilateral nephrolithiasis without ureteral calculus or hydronephrosis. No additional etiology for hematuria. 3. Trace right basilar pleural effusion. 4. Mild inflammatory stranding/edema surrounding the pancreas is most likely reactive and secondary t o cholecystitis. Correlation with serum lipase levels may be warranted to completely exclude a mild a cute pancreatitis component. 5. Other stable chronic incidental findings, as detailed above. Signer Name: Eros Miller MD Signed: 01/06/2022 10:50 AM Workstation Name: [employer]
--- NOTE | 2022-01-06 14:28 | Progress Note ---
Assessment and Plan Pt with acute calculous cholecystitis. No pancreatitis no jaundice. Pain already with signs of improvement. Will advance to clear liq diet at thsi time. Cont iv ab for leukocytosis. Patient notes that he is unable to eat his solid diet because of pain and nausea related to his gallbladder. CT of the abdomen done today negative for any renal or ureteral pathology. Patient's brief episode of hematuria is apparently clearing at this time. CT also shows continued signs of cholecystitis. Patient's condition is not emergent although not improving. We will continue IV fluids IV antibiotics and liquid diet as tolerated. If patient continues to feel unable to tolerate solids through the weekend we will do a Interim cholecystectomy early next week. Subjective Date of service: 01/06/22 Patient Reports: Positive: still having pain Narrative: Patient notes that he is unable to eat his solid diet because of pain and nausea related to his gallbladder. CT of the abdomen done today negative for any renal or ureteral pathology. Patient's brief episode of hematuria is apparently clearing at this time. CT also shows continued signs of cholecystitis. Patient's condition is not emergent although not improving. We will continue IV fluids IV antibiotics and liquid diet as tolerated. If patient continues to feel unable to tolerate solids through the weekend we will do a Interim cholecystectomy early next week. Objective Vital Signs - 12hr 01/06/22 01/06/22 01/06/22 04:51 08:04 09:00 Temperature 97.8 F Pulse Rate 104 H 99 H Respiratory 24 Rate Blood Pressure 110/70 93/62 O2 Sat by Pulse 90 94 98 Oximetry 01/06/22 12:35 Temperature 98.1 F Pulse Rate 97 H Respiratory 17 Rate Blood Pressure 104/68 O2 Sat by Pulse 93 Oximetry - Labs 01/06/22 05:04 01/06/22 05:04 Diabetes panel 01/06/22 Range/Units 05:04 Sodium 141 (137-145) mmol/L Potassium 4.1 (3.6-5.0) mmol/L Chloride 102.1 (98-107) mmol/L Carbon Dioxide 25 (22-30) mmol/L BUN 15 (9-20) mg/dL Creatinine 1.0 (0.8-1.3) mg/dL Glucose 123 H (75-100) mg/dL Calcium 9.0 (8.4-10.2) mg/dL Calcium panel 01/06/22 Range/Units 05:04 Calcium 9.0 (8.4-10.2) mg/dL Pituitary panel 01/06/22 Range/Units 05:04 Sodium 141 (137-145) mmol/L Potassium 4.1 (3.6-5.0) mmol/L Chloride 102.1 (98-107) mmol/L Carbon Dioxide 25 (22-30) mmol/L BUN 15 (9-20) mg/dL Creatinine 1.0 (0.8-1.3) mg/dL Glucose 123 H (75-100) mg/dL Calcium 9.0 (8.4-10.2) mg/dL Adrenal panel 01/06/22 Range/Units 05:04 Sodium 141 (137-145) mmol/L Potassium 4.1 (3.6-5.0) mmol/L Chloride 102.1 (98-107) mmol/L Carbon Dioxide 25 (22-30) mmol/L BUN 15 (9-20) mg/dL Creatinine 1.0 (0.8-1.3) mg/dL Glucose 123 H (75-100) mg/dL Calcium 9.0 (8.4-10.2) mg/dL
[2022-01-06] MEDS: ENOXAPARIN 40 MG/0.4 ML INJ SUB-Q SCH (21:35)
[2022-01-06] MEDS: ACETAMINOPHEN 325 MG TAB PO PRN (21:35)
[2022-01-07] MEDS: PIPERACIL/TAZOBACTA 4.5/NS 100 4.5 GM/100 ML VIAL IV SCH ×3 (04:37→22:30)
[2022-01-07] MEDS: SODIUM CHLORIDE 0.9% 1000 ML 1,000 ML IV SCH (08:11)
[2022-01-07] MEDS ORDERED: WATER FOR INJ STERILE ONE (08:22)
--- NOTE | 2022-01-07 09:58 | Progress Note ---
Assessment and Plan Assessment and plan: Assessment and plan; -- Acute cholecystitis/symptoms improved Surgery evaluation noted and appreciated On clear liquids, advanced to full liquids today Possible cholecystectomy early next week Sunday/Sunday Per surgery ,pending clinical course -- Intractable nausea vomiting; resolved Supportive care --Hematuria ; No new episodes of hematuria Leblanc catheterization, lolis-colored urine Follow urine analysis and urine culture, DC Leblanc catheter Patient will follow with urologist for further evaluation as outpatient CT abdomen and pelvis with and without contrast; 01/06/2022 reviewed worsening features of acute cholecystitis Bilateral nephrolithiasis without ureteral calculus or hydronephrosis no additional etiology for hematuria Trace right basilar pleural effusion next mild inflammatory stranding edema surrounding pancreas is most likely reactive and secondary to cholecystitis -- Hypertension; well-controlled IV hydralazine as needed Closely monitor blood pressures -- Hyperglycemia; improved Accu-Chek sliding scale coverage Check A1c. Closely monitor -- Morbid obesity; BMI 46.6 Patient advised diet modification, exercise as tolerated And weight reduction when he is medically stable Patient may benefit from bariatric surgical consultation as outpatient When he is medically stable for weight reduction program -- Full CODE STATUS; Advance care planning; I extensively discussed with the patient His diagnosis, I discussed with treatment plan, I discussed the surgery consult and possible surgical procedure I discussed with hospital stay and discharge planning when he is medically stable He had numerous questions I answered all of them, additional 32 minutes Closely monitor the patient and adjust management as needed Plan of care reviewed with the patient and his nurse follow surgical consult and recommendations Closely monitor the patient and adjust management as needed Possible discharge in 1 to 2 days if patient continues to improve Surgeons recommendations noted and appreciated Plan of care reviewed with the patient and his nurse 01/05;; patient with acute cholecystitis, surgeon following, clear liquids, IV antibiotics Had an episode of hematuria, CT abdomen and pelvis, Leblanc catheterization, urine analysis H&H monitoring 01/06; patient's hematuria significantly improved patient has high colored urine in the urine bag CT abdomen and pelvis with and without contrast findings reviewed no acute renal findings except for chronic renal stones no ureteric stone H&H stable, no active bleeding, no need for urology consult, patient will follow urologist outpatient on discharge, 01/07; no new episodes of hematuria, lolis-colored urine in the urine bag, DC Leblanc, follow urine analysis and urine cultures Surgery downgraded to full liquid diet, possible cholecystectomy early next week Sunday or Sunday History Interval history: I have seen and examined the patient at the bedside Patient's chart and medication list reviewed No new overnight events reported by the nursing No new episodes of hematuria Lolis-colored urine in the urine bag . Vital signs noted Hospitalist Physical - Constitutional Vitals: Temp Pulse Resp BP Pulse Ox 99.5 F 91 H 21 109/76 97 01/07/22 09:05 01/07/22 07:55 01/07/22 03:54 01/07/22 07:55 01/07/22 07:55 General appearance: Present: no acute distress, obese (Morbidly obese) - EENT Eyes: Present: PERRL, EOM intact - Neck Neck: Present: supple, normal ROM - Respiratory Respiratory effort: normal Respiratory: bilateral: diminished, negative: rales, rhonchi, wheezing - Cardiovascular Rhythm: regular Heart Sounds: Present: S1 & S2 - Extremities Extremities: no ischemia, No edema - Abdominal General gastrointestinal: soft, non-tender, non-distended, normal bowel sounds - Integumentary Integumentary: Present: clear, warm - Psychiatric Psychiatric: appropriate mood/affect, cooperative - Neurologic Neurologic: CNII-XII intact, moves all extremities HEART Score - HEART Score Troponin: Troponin T < 0.010 ng/mL (0.00-0.029) 01/04/22 03:06 Results - Labs CBC & Chem 7: 01/06/22 05:04 01/06/22 05:04 Labs: Laboratory Last Values WBC 11.4 K/mm3 (4.5-11.0) H 01/06/22 05:04 RBC 4.61 M/mm3 (3.65-5.03) 01/06/22 05:04 Hgb 14.3 gm/dl (11.8-15.2) 01/06/22 05:04 Hct 44.1 % (35.5-45.6) 01/06/22 05:04 MCV 96 fl (84-94) H 01/06/22 05:04 MCH 31 pg (28-32) 01/06/22 05:04 MCHC 33 % (32-34) 01/06/22 05:04 RDW 14.3 % (13.2-15.2) 01/06/22 05:04 Plt Count 191 K/mm3 (140-440) 01/06/22 05:04 Lymph % (Auto) 9.7 % (13.4-35.0) L 01/06/22 05:04 [place] % (Auto) 7.6 % (0.0-7.3) H 01/06/22 05:04 Eos % (Auto) 0.2 % (0.0-4.3) 01/06/22 05:04 Baso % (Auto) 0.4 % (0.0-1.8) 01/06/22 05:04 Lymph # (Auto) 1.1 K/mm3 (1.2-5.4) L 01/06/22 05:04 [place] # (Auto) 0.9 K/mm3 (0.0-0.8) H 01/06/22 05:04 Eos # (Auto) 0.0 K/mm3 (0.0-0.4) 01/06/22 05:04 Baso # (Auto) 0.1 K/mm3 (0.0-0.1) 01/06/22 05:04 Seg Neutrophils % 82.1 % (40.0-70.0) H 01/06/22 05:04 Seg Neutrophils # 9.3 K/mm3 (1.8-7.7) H 01/06/22 05:04 Sodium 141 mmol/L (137-145) 01/06/22 05:04 Potassium 4.1 mmol/L (3.6-5.0) 01/06/22 05:04 Chloride 102.1 mmol/L (98-107) 01/06/22 05:04 Carbon Dioxide 25 mmol/L (22-30) 01/06/22 05:04 Anion Gap 18 mmol/L 01/06/22 05:04 BUN 15 mg/dL (9-20) 01/06/22 05:04 Creatinine 1.0 mg/dL (0.8-1.3) 01/06/22 05:04 Estimated GFR > 60 ml/min 01/06/22 05:04 BUN/Creatinine Ratio 15 % 01/06/22 05:04 Glucose 123 mg/dL (75-100) H 01/06/22 05:04 POC Glucose 110 mg/dL (70-105) H 01/04/22 16:47 Calcium 9.0 mg/dL (8.4-10.2) 01/06/22 05:04 Total Bilirubin 2.70 mg/dL (0.1-1.2) H 01/04/22 03:06 AST 86 units/L (5-40) H 01/04/22 03:06 ALT 39 units/L (7-56) 01/04/22 03:06 Alkaline Phosphatase 88 units/L (35-129) 01/04/22 03:06 Troponin T < 0.010 ng/mL (0.00-0.029) 01/04/22 03:06 Total Protein 7.3 g/dL (6.3-8.2) 01/04/22 03:06 Albumin 4.2 g/dL (3.9-5) 01/04/22 03:06 Albumin/Globulin Ratio 1.4 % 01/04/22 03:06 Lipase 19 units/L (13-60) 01/04/22 03:06 Urine Color [place]olis (Yellow) 01/04/22 Unknown Urine Turbidity Cloudy (Clear) 01/04/22 Unknown Urine pH 5.0 (5.0-7.0) 01/04/22 Unknown Ur Specific [place] 1.035 (1.003-1.030) H 01/04/22 Unknown Urine Protein 100 mg/dl mg/dL (Negative) 01/04/22 Unknown Urine Glucose (UA) Negative mg/dL (Negative) 01/04/22 Unknown Urine Ketones Negative mg/dL (Negative) 01/04/22 Unknown Urine Blood Trace (Negative) 01/04/22 Unknown Urine Nitrite Negative (Negative) 01/04/22 Unknown Ur Reducing Substances Not Reportable 01/04/22 Unknown Urine Bilirubin Small (Negative) 01/04/22 Unknown Urine Ictotest Positive (Negative) 01/04/22 Unknown Urine Urobilinogen < 2.0 mg/dL (<2.0) 01/04/22 Unknown Ur Leukocyte Esterase Negative (Negative) 01/04/22 Unknown Urine WBC (Auto) 7.0 /HPF (0.0-6.0) H 01/04/22 Unknown Urine RBC (Auto) 8.0 /HPF (0.0-6.0) 01/04/22 Unknown U Epithel Cells (Auto) 1.0 /HPF (0-13.0) 01/04/22 Unknown Urine Bacteria (Auto) 1+ /HPF (Negative) 01/04/22 Unknown Hyaline Casts 4 /LPF 01/04/22 Unknown Urine Mucus 3+ /HPF 01/04/22 Unknown Leblanc/IV: Voiding Method Indwelling Catheter Active Medications - Current Medications Current Medications: Generic Name Dose Route Start Last Admin Trade Name Freq PRN Reason Stop Dose Admin Acetaminophen 650 mg 01/04/22 05:15 01/06/22 21:35 Acetaminophen 325 Mg Tab PO 650 mg Q4H PRN Administration Pain MILD(1-3)/Fever >100.5/HIGUERA Enoxaparin Sodium 40 mg 01/04/22 22:00 01/06/22 21:35 Enoxaparin 40 Mg/0.4 Ml Inj SUB-Q 40 mg QDAY@2200 ZEB Administration Protocol Hydralazine HCl 10 mg 01/04/22 10:00 Hydralazine 20 Mg/1 Ml Inj IV Q4HR PRN Hypertension Sodium Chloride 1,000 mls @ 125 mls/hr 01/04/22 05:15 01/07/22 08:11 Nacl 0.9% 1000 Ml IV 125 mls/hr DIRECT ZEB Administration Piperacillin Sod/Tazobactam Sod 4.5 gm in 100 mls @ 200 mls/hr 01/04/22 12:00 01/07/22 04:37 Zosyn/Ns 4.5gm/100ml IV 200 mls/hr Q8H ZEB Administration Protocol Ibuprofen 600 mg 01/04/22 10:00 01/05/22 09:47 Ibuprofen 600 Mg Tab PO 600 mg Q6H PRN Administration Pain, Mild (1-3) Metoclopramide HCl 10 mg 01/04/22 05:15 01/04/22 05:36 Metoclopramide 10 Mg/2 Ml Inj IV 10 mg Q6H PRN Administration Nausea And Vomiting Morphine Sulfate 2 mg 01/04/22 10:00 01/05/22 21:41 Morphine 2 Mg/1 Ml Inj IV 2 mg Q4H PRN Administration Pain, Moderate (4-6) Morphine Sulfate 4 mg 01/04/22 10:00 Morphine 4 Mg/1 Ml Inj IV Q4H PRN Pain , Severe (7-10) Ondansetron HCl 4 mg 01/04/22 10:00 01/04/22 20:57 Ondansetron 4 Mg/2 Ml Inj IV 4 mg Q4H PRN Administration Nausea And Vomiting Sodium Chloride 10 ml 01/04/22 10:00 01/06/22 21:36 Sodium Chloride 0.9% 10 Ml Flush Syringe IV 10 ml BID ZEB Administration
--- NOTE | 2022-01-07 10:54 | Progress Note ---
Assessment and Plan 66 yo M with acute calculous cholecystitis. 1. downgrade to FLD 2. gentle IVF - change to maintenance 3. prn pain and nausea control 4. wean O2 as opal 5. uro consult pending for hematuria 6. DVT ppx 7. IV abx 8. Possible cholecystectomy this admission based on clinical progress Thank you, please call with concerns. Subjective Date of service: 01/07/22 Narrative: Pt seen and examined. c/o pressure like pain in the upper abdomen. No n/v. Opal reg diet. No f/c Objective Vital Signs - 12hr 01/07/22 01/07/22 01/07/22 03:54 07:55 09:05 Temperature 97.5 F L 97.5 F L 99.5 F Pulse Rate 89 91 H Respiratory 21 Rate Blood Pressure 103/60 109/76 O2 Sat by Pulse 95 97 Oximetry - General physical appearance Narrative Exam: Gen; AAox3. NAD CV: s1, S2+ Resp; even and unlabored Abd: soft, obese, ND, mild upper abdominal TTP. no r/r/g Ext: no c/c/e - Labs 01/06/22 05:04 01/06/22 05:04
[2022-01-07] MEDS: SODIUM CHLORIDE 0.45% 1000 ML 1,000 ML IV SCH (12:26)
[2022-01-07 15:41] LABS: Mucus,Urine FEW /HPF
[2022-01-07 16:04] LABS: Bilirubin,Urine Negative (Negative); Blood,Urine 3+ (Negative); Color,Urine Dark Yellow (Yellow); Urobilinogen,Urine < 2.0 mg/dL (<2.0)
[2022-01-07] MEDS: ENOXAPARIN 40 MG/0.4 ML INJ SUB-Q SCH (22:30)
[2022-01-08] MEDS: SODIUM CHLORIDE 0.45% 1000 ML 1,000 ML IV SCH (02:42)
[2022-01-08] MEDS: PIPERACIL/TAZOBACTA 4.5/NS 100 4.5 GM/100 ML VIAL IV SCH ×3 (04:50→22:10)
--- NOTE | 2022-01-08 10:23 | Progress Note ---
Assessment and Plan Assessment and plan: CT abdomen and pelvis with and without contrast; 01/06/2022 reviewed worsening features of acute cholecystitis Bilateral nephrolithiasis without ureteral calculus or hydronephrosis no additional etiology for hematuria Trace right basilar pleural effusion next mild inflammatory stranding edema surrounding pancreas is most likely reactive and secondary to cholecystitis --Hematuria episode/resolved Patient did not have any new episodes of hematuria Leblanc catheter discontinued, some blood noted in the urine analysis Patient has history of bilateral nephrolithiasis without urolithiasis Mild hematuria episode probably due to nephrolithiasis Patient will follow with urologist as outpatient upon discharge However if he continues to have hematuria will consult urologist as needed -- Acute cholecystitis/symptoms improved Surgery evaluation noted and appreciated On clear liquids, surgeon advance diet to regular diet this afternoon Continue current management -- Intractable nausea vomiting; resolved Supportive care -- Hypertension; IV hydralazine as needed Closely monitor blood pressures -- Hyperglycemia; Accu-Chek sliding scale coverage Check A1c. Closely monitor -- Morbid obesity; BMI 46.6 Patient advised diet modification, exercise as tolerated And weight reduction when he is medically stable Patient may benefit from bariatric surgical consultation as outpatient When he is medically stable for weight reduction program -- Full CODE STATUS; Advance care planning; I extensively discussed with the patient His diagnosis, I discussed with treatment plan, I discussed the surgery consult and possible surgical procedure I discussed with hospital stay and discharge planning when he is medically stable He had numerous questions I answered all of them, additional 32 minutes Closely monitor the patient and adjust management as needed Plan of care reviewed with the patient and his nurse follow surgical consult and recommendations Closely monitor the patient and adjust management as needed Possible discharge in 1 to 2 days if patient continues to improve Surgeons recommendations noted and appreciated Plan of care reviewed with the patient and his nurse 01/05/2022; patient with acute cholecystitis, surgeon following, clear liquids, IV antibiotics Had an episode of hematuria, CT abdomen and pelvis, Leblanc catheterization, urine analysis H&H monitoring 01/07/2020; patient's hematuria significantly improved patient has high colored urine in the urine bag CT abdomen and pelvis with and without contrast findings reviewed no acute renal findings except for chronic renal stones no ureteric stone H&H stable, no active bleeding, no need for urology consult, patient will follow urologist outpatient on discharge, 01/07/2022; no evidence of blood in the urine, DC Leblanc catheter 01/08; DC IV fluids, 1 or 2 doses of IV Lasix for some chest congestion Surgery. Planning cholecystectomy in 1 to 2 days History Interval history: I have seen and examined the patient at the bedside this morning Patient's chart and medications reviewed Patient's nurse is in the room Patient has no new complaints except for some mild chest congestion Probably secondary to IV fluids. Stop IV fluids and 1 Lasix IV Vital signs noted Hospitalist Physical - Constitutional Vitals: Temp Pulse Resp BP Pulse Ox 97.4 F L 83 18 106/40 98 01/08/22 08:14 01/08/22 08:14 01/08/22 08:14 01/08/22 08:14 01/08/22 08:14 General appearance: Present: no acute distress, obese (Morbidly obese) - EENT Eyes: Present: PERRL, EOM intact - Neck Neck: Present: supple, normal ROM - Respiratory Respiratory effort: normal, other (Mild congestion probably secondary to IV hydration) Respiratory: bilateral: diminished, rales, negative: rhonchi, wheezing - Cardiovascular Rhythm: regular Heart Sounds: Present: S1 & S2 - Extremities Extremities: no ischemia Extremity abnormal: edema - Abdominal General gastrointestinal: soft, non-tender, non-distended, normal bowel sounds - Integumentary Integumentary: Present: clear, warm - Psychiatric Psychiatric: appropriate mood/affect, cooperative - Neurologic Neurologic: CNII-XII intact, moves all extremities HEART Score - HEART Score Troponin: Troponin T < 0.010 ng/mL (0.00-0.029) 01/04/22 03:06 Results - Labs CBC & Chem 7: 01/06/22 05:04 01/06/22 05:04 Labs: Laboratory Last Values WBC 11.4 K/mm3 (4.5-11.0) H 01/06/22 05:04 RBC 4.61 M/mm3 (3.65-5.03) 01/06/22 05:04 Hgb 14.3 gm/dl (11.8-15.2) 01/06/22 05:04 Hct 44.1 % (35.5-45.6) 01/06/22 05:04 MCV 96 fl (84-94) H 01/06/22 05:04 MCH 31 pg (28-32) 01/06/22 05:04 MCHC 33 % (32-34) 01/06/22 05:04 RDW 14.3 % (13.2-15.2) 01/06/22 05:04 Plt Count 191 K/mm3 (140-440) 01/06/22 05:04 Lymph % (Auto) 9.7 % (13.4-35.0) L 01/06/22 05:04 [place] % (Auto) 7.6 % (0.0-7.3) H 01/06/22 05:04 Eos % (Auto) 0.2 % (0.0-4.3) 01/06/22 05:04 Baso % (Auto) 0.4 % (0.0-1.8) 01/06/22 05:04 Lymph # (Auto) 1.1 K/mm3 (1.2-5.4) L 01/06/22 05:04 [place] # (Auto) 0.9 K/mm3 (0.0-0.8) H 01/06/22 05:04 Eos # (Auto) 0.0 K/mm3 (0.0-0.4) 01/06/22 05:04 Baso # (Auto) 0.1 K/mm3 (0.0-0.1) 01/06/22 05:04 Seg Neutrophils % 82.1 % (40.0-70.0) H 01/06/22 05:04 Seg Neutrophils # 9.3 K/mm3 (1.8-7.7) H 01/06/22 05:04 Sodium 141 mmol/L (137-145) 01/06/22 05:04 Potassium 4.1 mmol/L (3.6-5.0) 01/06/22 05:04 Chloride 102.1 mmol/L (98-107) 01/06/22 05:04 Carbon Dioxide 25 mmol/L (22-30) 01/06/22 05:04 Anion Gap 18 mmol/L 01/06/22 05:04 BUN 15 mg/dL (9-20) 01/06/22 05:04 Creatinine 1.0 mg/dL (0.8-1.3) 01/06/22 05:04 Estimated GFR > 60 ml/min 01/06/22 05:04 BUN/Creatinine Ratio 15 % 01/06/22 05:04 Glucose 123 mg/dL (75-100) H 01/06/22 05:04 POC Glucose 110 mg/dL (70-105) H 01/04/22 16:47 Calcium 9.0 mg/dL (8.4-10.2) 01/06/22 05:04 Total Bilirubin 2.70 mg/dL (0.1-1.2) H 01/04/22 03:06 AST 86 units/L (5-40) H 01/04/22 03:06 ALT 39 units/L (7-56) 01/04/22 03:06 Alkaline Phosphatase 88 units/L (35-129) 01/04/22 03:06 Troponin T < 0.010 ng/mL (0.00-0.029) 01/04/22 03:06 Total Protein 7.3 g/dL (6.3-8.2) 01/04/22 03:06 Albumin 4.2 g/dL (3.9-5) 01/04/22 03:06 Albumin/Globulin Ratio 1.4 % 01/04/22 03:06 Lipase 19 units/L (13-60) 01/04/22 03:06 Urine Color Dark yellow (Yellow) 01/07/22 14:25 Urine Turbidity Clear (Clear) 01/07/22 14:25 Urine pH 5.0 (5.0-7.0) 01/07/22 14:25 Ur Specific [place] 1.015 (1.003-1.030) 01/07/22 14:25 Urine Protein 100 mg/dl mg/dL (Negative) 01/07/22 14:25 Urine Glucose (UA) Negative mg/dL (Negative) 01/07/22 14:25 Urine Ketones 160 mg/dL (Negative) 01/07/22 14:25 Urine Blood 3+ (Negative) 01/07/22 14:25 Urine Nitrite Negative (Negative) 01/07/22 14:25 Ur Reducing Substances Not Reportable 01/07/22 14:25 Urine Bilirubin Negative (Negative) 01/07/22 14:25 Urine Ictotest Not Reportable 01/07/22 14:25 Urine Urobilinogen < 2.0 mg/dL (<2.0) 01/07/22 14:25 Ur Leukocyte Esterase Negative (Negative) 01/07/22 14:25 Urine WBC (Auto) 6.0 /HPF (0.0-6.0) 01/07/22 14:25 Urine RBC (Auto) 6.0 /HPF (0.0-6.0) 01/07/22 14:25 U Epithel Cells (Auto) 1.0 /HPF (0-13.0) 01/04/22 Unknown Urine Bacteria (Auto) 1+ /HPF (Negative) 01/04/22 Unknown Hyaline Casts 4 /LPF 01/04/22 Unknown Urine Mucus Few /HPF 01/07/22 14:25 Microbiology: Microbiology 01/06/22 10:26 Urine,Leblanc [place] Urine Culture - Preliminary NO GROWTH AFTER 24 HOURS Leblanc/IV: Voiding Method Toilet Active Medications - Current Medications Current Medications: Generic Name Dose Route Start Last Admin Trade Name Freq PRN Reason Stop Dose Admin Acetaminophen 650 mg 01/04/22 05:15 01/06/22 21:35 Acetaminophen 325 Mg Tab PO 650 mg Q4H PRN Administration Pain MILD(1-3)/Fever >100.5/HIGUERA Docusate Sodium 100 mg 01/08/22 22:00 Docusate Sodium 100 Mg Cap PO BID [facility] Enoxaparin Sodium 40 mg 01/04/22 22:00 01/07/22 22:30 Enoxaparin 40 Mg/0.4 Ml Inj SUB-Q 40 mg QDAY@2200 [facility] Administration Protocol Furosemide 40 mg 01/08/22 10:17 Furosemide 40 Mg/4 Ml Inj IV 01/08/22 10:18 ONCE ONE Furosemide 40 mg 01/09/22 10:00 Furosemide 40 Mg/4 Ml Inj IV QDAY ZEB Hydralazine HCl 10 mg 01/04/22 10:00 Hydralazine 20 Mg/1 Ml Inj IV Q4HR PRN Hypertension Piperacillin Sod/Tazobactam Sod 4.5 gm in 100 mls @ 200 mls/hr 01/04/22 12:00 01/08/22 04:50 Zosyn/Ns 4.5gm/100ml IV 200 mls/hr Q8H ZEB Administration Protocol Sodium Chloride 1,000 mls @ 75 mls/hr 01/07/22 11:00 01/08/22 02:42 Nacl 0.45% 1000 Ml IV 75 mls/hr DIRECT ZEB Administration Ibuprofen 600 mg 01/04/22 10:00 01/05/22 09:47 Ibuprofen 600 Mg Tab PO 600 mg Q6H PRN Administration Pain, Mild (1-3) Metoclopramide HCl 10 mg 01/04/22 05:15 01/04/22 05:36 Metoclopramide 10 Mg/2 Ml Inj IV 10 mg Q6H PRN Administration Nausea And Vomiting Morphine Sulfate 2 mg 01/04/22 10:00 01/05/22 21:41 Morphine 2 Mg/1 Ml Inj IV 2 mg Q4H PRN Administration Pain, Moderate (4-6) Ondansetron HCl 4 mg 01/04/22 10:00 01/04/22 20:57 Ondansetron 4 Mg/2 Ml Inj IV 4 mg Q4H PRN Administration Nausea And Vomiting Sodium Chloride 10 ml 01/04/22 10:00 01/08/22 02:43 Sodium Chloride 0.9% 10 Ml Flush Syringe IV 10 ml BID ZEB Administration
--- NOTE | 2022-01-08 10:51 | Progress Note ---
Assessment and Plan 66 yo M with acute calculous cholecystitis 1. FLD, NPO p MN tonight 2. gentle IVF - maintenance 3. prn pain and nausea control 4. wean O2 as opal 5. DVT ppx 6. IV abx 7. CXR/EKG/COVID test preop 8. Possible cholecystectomy this week as patient's symptoms and imaging not improving. Discussed surgery technique and all risks, benefits, alternatives to surgery with patient. Consent obtained. Will discuss timing with Dr. Raymond in am. Thank you, please call with concerns. Subjective Date of service: 01/08/22 Narrative: Pt seen and examined. Opal liquids. Feels congested. No f/c. Mild upper abdominal pain. Objective Vital Signs - 12hr 01/07/22 01/07/22 01/08/22 23:49 23:55 03:37 Temperature 97.2 F L 98.2 F Pulse Rate 86 84 Respiratory 19 20 Rate Blood Pressure 119/77 Blood Pressure 101/62 [Right] O2 Sat by Pulse 94 95 Oximetry 01/08/22 08:14 Temperature 97.4 F L Pulse Rate 83 Respiratory 18 Rate Blood Pressure 106/40 Blood Pressure [Right] O2 Sat by Pulse 98 Oximetry - General physical appearance Narrative Exam: Gen; AAox3. NAD CV: s1, S2+ Resp; even and unlabored Abd: soft, obese, ND, mild upper abdominal TTP. no r/r/g Ext: no c/c/e - Labs 01/06/22 05:04 01/06/22 05:04
[2022-01-08] MEDS ORDERED: FUROSEMIDE 40 MG/4 ML INJ IV SCH (11:00)
[2022-01-08] MEDS: DOCUSATE SODIUM 100 MG CAP PO SCH ×2 (13:13→22:11)
[2022-01-08] MEDS: ENOXAPARIN 40 MG/0.4 ML INJ SUB-Q SCH (22:10)
[2022-01-09] MEDS: PIPERACIL/TAZOBACTA 4.5/NS 100 4.5 GM/100 ML VIAL IV SCH ×3 (04:24→21:21)
[2022-01-09] MEDS ORDERED: SODIUM CHLORIDE 0.9% 500 ML 500 ML IV ONE (04:26)
[2022-01-09 05:32] LABS: Hematocrit 38.3 % (35.5-45.6); Hemoglobin 12.6 gm/dl (11.8-15.2); Mean Corpuscular HGB Conc 33 % (32-34); Mean Corpuscular Volume 95 fl (84-94); Platelet Count 193 K/mm3 (140-440); Red Blood Count 4.04 M/mm3 (3.65-5.03); Red Cell Distribution Width 14.4 % (13.2-15.2)
[2022-01-09 05:40] LABS: Alanine Aminotransferase 106 units/L (7-56); Albumin 2.1 g/dL (3.9-5); Blood Urea Nitrogen 14 mg/dL (9-20); Calcium 8.5 mg/dL (8.4-10.2); Hemolysis Index 23
[2022-01-09 05:45] LABS: INR 1.05 (0.87-1.13)
[2022-01-09 05:57] LABS: BUN/Creatinine Ratio 20
--- NOTE | 2022-01-09 08:32 | Progress Note ---
Assessment and Plan Assessment and plan: CT abdomen and pelvis with and without contrast; 01/06/2022 reviewed worsening features of acute cholecystitis Bilateral nephrolithiasis without ureteral calculus or hydronephrosis no additional etiology for hematuria Trace right basilar pleural effusion next mild inflammatory stranding edema surrounding pancreas is most likely reactive and secondary to cholecystitis -- Acute cholecystitis/symptoms improved Worsening features of acute cholecystitis on CT 01/06/2022 Surgery following, n.p.o. status today Possible cholecystectomy 1 to 2 days per surgeon -- Intractable nausea vomiting; resolved Supportive care --Hematuria episode/resolved/history of nephrolithiasis Patient did not have any new episodes of hematuria Leblanc catheter discontinued, some blood noted in the urine analysis Patient has history of bilateral nephrolithiasis without urolithiasis Mild hematuria episode probably due to nephrolithiasis Patient will follow with urologist as outpatient upon discharge However if he continues to have hematuria will consult urologist as needed -- Hypertension; IV hydralazine as needed Closely monitor blood pressures -- Hyperglycemia; Accu-Chek sliding scale coverage Check A1c. Closely monitor -- Morbid obesity; BMI 46.6 Patient advised diet modification, exercise as tolerated And weight reduction when he is medically stable Patient may benefit from bariatric surgical consultation as outpatient When he is medically stable for weight reduction program -- Full CODE STATUS; Advance care planning; I extensively discussed with the patient His diagnosis, I discussed with treatment plan, I discussed the surgery consult and possible surgical procedure I discussed with hospital stay and discharge planning when he is medically stable He had numerous questions I answered all of them, additional 32 minutes Closely monitor the patient and adjust management as needed Plan of care reviewed with the patient and his nurse follow surgical consult and recommendations Closely monitor the patient and adjust management as needed Possible discharge in 1 to 2 days if patient continues to improve Surgeons recommendations noted and appreciated Plan of care reviewed with the patient and his nurse 01/05/2022; patient with acute cholecystitis, surgeon following, clear liquids, IV antibiotics Had an episode of hematuria, CT abdomen and pelvis, Leblanc catheterization, urine analysis H&H monitoring 01/07/2020; patient's hematuria significantly improved patient has high colored urine in the urine bag CT abdomen and pelvis with and without contrast findings reviewed no acute renal findings except for chronic renal stones no ureteric stone H&H stable, no active bleeding, no need for urology consult, patient will follow urologist outpatient on discharge, 01/07/2022; no evidence of blood in the urine, DC Leblanc catheter 01/08; DC IV fluids, 1 or 2 doses of IV Lasix for some chest congestion Surgery. Planning cholecystectomy in 1 to 2 days n.p.o. from midnight 01/09; patient n.p.o., scheduled for lap cholecystectomy today per surgery. Disposition: Follow-up surgery recommendations. History Interval history: Seen and examined the patient at the bedside Patient's chart and current medications reviewed Patient is n.p.o. status surgery scheduled for lap cholecystectomy today patient complains of mild abdominal discomfort Vital signs Hospitalist Physical - Constitutional Vitals: Temp Pulse Resp BP Pulse Ox 98.3 F 79 17 104/61 98 01/09/22 07:49 01/09/22 07:49 01/09/22 07:49 01/09/22 07:49 01/09/22 07:49 General appearance: Present: no acute distress, well-nourished, obese (Morbidly obese) - EENT Eyes: Present: PERRL, EOM intact - Neck Neck: Present: supple, normal ROM - Respiratory Respiratory effort: normal Respiratory: bilateral: diminished, negative: rales, rhonchi, wheezing - Cardiovascular Rhythm: regular Heart Sounds: Present: S1 & S2 - Extremities Extremities: no ischemia, No edema - Abdominal General gastrointestinal: soft, non-tender, non-distended, normal bowel sounds - Integumentary Integumentary: Present: clear, warm - Psychiatric Psychiatric: appropriate mood/affect, cooperative - Neurologic Neurologic: CNII-XII intact, moves all extremities HEART Score - HEART Score Troponin: Troponin T < 0.010 ng/mL (0.00-0.029) 01/04/22 03:06 Results - Labs CBC & Chem 7: 01/10/22 03:40 01/10/22 03:40 Labs: Laboratory Last Values WBC 8.9 K/mm3 (4.5-11.0) 01/09/22 04:59 RBC 4.04 M/mm3 (3.65-5.03) 01/09/22 04:59 Hgb 12.6 gm/dl (11.8-15.2) 01/09/22 04:59 Hct 38.3 % (35.5-45.6) 01/09/22 04:59 MCV 95 fl (84-94) H 01/09/22 04:59 MCH 31 pg (28-32) 01/09/22 04:59 MCHC 33 % (32-34) 01/09/22 04:59 RDW 14.4 % (13.2-15.2) 01/09/22 04:59 Plt Count 193 K/mm3 (140-440) 01/09/22 04:59 Lymph % (Auto) 9.7 % (13.4-35.0) L 01/06/22 05:04 [place] % (Auto) 7.6 % (0.0-7.3) H 01/06/22 05:04 Eos % (Auto) 0.2 % (0.0-4.3) 01/06/22 05:04 Baso % (Auto) 0.4 % (0.0-1.8) 01/06/22 05:04 Lymph # (Auto) 1.1 K/mm3 (1.2-5.4) L 01/06/22 05:04 [place] # (Auto) 0.9 K/mm3 (0.0-0.8) H 01/06/22 05:04 Eos # (Auto) 0.0 K/mm3 (0.0-0.4) 01/06/22 05:04 Baso # (Auto) 0.1 K/mm3 (0.0-0.1) 01/06/22 05:04 Seg Neutrophils % 82.1 % (40.0-70.0) H 01/06/22 05:04 Seg Neutrophils # 9.3 K/mm3 (1.8-7.7) H 01/06/22 05:04 PT 14.9 Sec. (12.2-14.9) 01/09/22 04:59 INR 1.05 (0.87-1.13) 01/09/22 04:59 Sodium 135 mmol/L (137-145) L 01/09/22 04:59 Potassium 3.5 mmol/L (3.6-5.0) L 01/09/22 04:59 Chloride 97.0 mmol/L (98-107) L 01/09/22 04:59 Carbon Dioxide 28 mmol/L (22-30) 01/09/22 04:59 Anion Gap 14 mmol/L 01/09/22 04:59 BUN 14 mg/dL (9-20) 01/09/22 04:59 Creatinine 0.7 mg/dL (0.8-1.3) L 01/09/22 04:59 Estimated GFR > 60 ml/min 01/09/22 04:59 BUN/Creatinine Ratio 20 % 01/09/22 04:59 Glucose 111 mg/dL (75-100) H 01/09/22 04:59 POC Glucose 110 mg/dL (70-105) H 01/04/22 16:47 Calcium 8.5 mg/dL (8.4-10.2) 01/09/22 04:59 Total Bilirubin 3.80 mg/dL (0.1-1.2) H 01/09/22 04:59 AST 139 units/L (5-40) H 01/09/22 04:59 ALT 106 units/L (7-56) H 01/09/22 04:59 Alkaline Phosphatase 227 units/L (35-129) H 01/09/22 04:59 Troponin T < 0.010 ng/mL (0.00-0.029) 01/04/22 03:06 Total Protein 5.9 g/dL (6.3-8.2) L 01/09/22 04:59 Albumin 2.1 g/dL (3.9-5) L 01/09/22 04:59 Albumin/Globulin Ratio 0.6 % 01/09/22 04:59 Lipase 108 units/L (13-60) H 01/09/22 04:59 Urine Color Dark yellow (Yellow) 01/07/22 14:25 Urine Turbidity Clear (Clear) 01/07/22 14:25 Urine pH 5.0 (5.0-7.0) 01/07/22 14:25 Ur Specific [place] 1.015 (1.003-1.030) 01/07/22 14:25 Urine Protein 100 mg/dl mg/dL (Negative) 01/07/22 14:25 Urine Glucose (UA) Negative mg/dL (Negative) 01/07/22 14:25 Urine Ketones 160 mg/dL (Negative) 01/07/22 14:25 Urine Blood 3+ (Negative) 01/07/22 14:25 Urine Nitrite Negative (Negative) 01/07/22 14:25 Ur Reducing Substances Not Reportable 01/07/22 14:25 Urine Bilirubin Negative (Negative) 01/07/22 14:25 Urine Ictotest Not Reportable 01/07/22 14:25 Urine Urobilinogen < 2.0 mg/dL (<2.0) 01/07/22 14:25 Ur Leukocyte Esterase Negative (Negative) 01/07/22 14:25 Urine WBC (Auto) 6.0 /HPF (0.0-6.0) 01/07/22 14:25 Urine RBC (Auto) 6.0 /HPF (0.0-6.0) 01/07/22 14:25 U Epithel Cells (Auto) 1.0 /HPF (0-13.0) 01/04/22 Unknown Urine Bacteria (Auto) 1+ /HPF (Negative) 01/04/22 Unknown Hyaline Casts 4 /LPF 01/04/22 Unknown Urine Mucus Few /HPF 01/07/22 14:25 Microbiology: Microbiology 01/06/22 10:26 Urine,Leblanc Port Urine Culture - Final NO GROWTH AFTER 48 HOURS Leblanc/IV: Voiding Method Toilet Active Medications - Current Medications Current Medications: Generic Name Dose Route Start Last Admin Trade Name Freq PRN Reason Stop Dose Admin Acetaminophen 650 mg 01/04/22 05:15 01/06/22 21:35 Acetaminophen 325 Mg Tab PO 650 mg Q4H PRN Administration Pain MILD(1-3)/Fever >100.5/HIGUERA Docusate Sodium 100 mg 01/08/22 11:00 01/08/22 22:11 Docusate Sodium 100 Mg Cap PO 100 mg BID ZEB Administration Enoxaparin Sodium 40 mg 01/04/22 22:00 01/08/22 22:10 Enoxaparin 40 Mg/0.4 Ml Inj SUB-Q 40 mg QDAY@2200 [facility] Administration Protocol Furosemide 40 mg 01/09/22 10:00 Furosemide 40 Mg/4 Ml Inj IV QDAY ZEB Hydralazine HCl 10 mg 01/04/22 10:00 Hydralazine 20 Mg/1 Ml Inj IV Q4HR PRN Hypertension Piperacillin Sod/Tazobactam Sod 4.5 gm in 100 mls @ 200 mls/hr 01/04/22 12:00 01/09/22 04:24 Zosyn/Ns 4.5gm/100ml IV 200 mls/hr Q8H ZEB Administration Protocol Ibuprofen 600 mg 01/04/22 10:00 01/05/22 09:47 Ibuprofen 600 Mg Tab PO 600 mg Q6H PRN Administration Pain, Mild (1-3) Metoclopramide HCl 10 mg 01/04/22 05:15 01/04/22 05:36 Metoclopramide 10 Mg/2 Ml Inj IV 10 mg Q6H PRN Administration Nausea And Vomiting Morphine Sulfate 2 mg 01/04/22 10:00 01/05/22 21:41 Morphine 2 Mg/1 Ml Inj IV 2 mg Q4H PRN Administration Pain, Moderate (4-6) Ondansetron HCl 4 mg 01/04/22 10:00 01/04/22 20:57 Ondansetron 4 Mg/2 Ml Inj IV 4 mg Q4H PRN Administration Nausea And Vomiting Sodium Chloride 10 ml 01/04/22 10:00 01/08/22 22:12 Sodium Chloride 0.9% 10 Ml Flush Syringe IV 10 ml BID ZEB Administration
--- NOTE | 2022-01-09 08:41 | XRay Report ---
CHEST 1 VIEW 01/09/2022 6:55 AM INDICATION / CLINICAL INFORMATION: preop. COMPARISON: 01/04/2022 FINDINGS: SUPPORT DEVICES: None. HEART / MEDIASTINUM: No significant abnormality. LUNGS / PLEURA: Moderate interstitial prominence. No pneumothorax. ADDITIONAL FINDINGS: No significant additional findings. IMPRESSION: 1. Moderate pulmonary edema. Signer Name: Iván Cabrales DO Signed: 01/09/2022 8:37 AM Workstation Name: [id number]
[2022-01-09] MEDS ORDERED: FUROSEMIDE 40 MG/4 ML INJ IV SCH (10:00)
--- NOTE | 2022-01-09 11:45 | Anesthesia Day of Surgery ---
Anesthesia Day of Surgery - Day of Surgery Patient Examined: Yes Patient H&P Reviewed: Yes Patient is NPO: Yes
--- NOTE | 2022-01-09 11:45 | Anesthesia Consultation ---
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) - Cardiovascular System Hx Hypertension: No (patient denies, no meds) - Central Nervous System Hx Back Pain: Yes (lower rback surgery) - Endocrine Hx Liver Disease: Yes (gallbladder disease) - Other Systems Hx Obesity: Yes (BMI 49.9) <DANNA LEDEZMA - Last Filed: 01/09/22 13:37> Anesthesia Consult and Med Hx - Airway Anesthetic Teeth Evaluation: Edentulous ROM Head & Neck: Adequate Mental/Hyoid Distance: Adequate Mallampati Class: Class III Intubation Access Assessment: Possibly Difficult - Pre-Operative Health Status ASA Pre-Surgery Classification: ASA3 Proposed Anesthetic Plan: General - Pulmonary Home Oxygen Therapy: No Hx Pneumonia: Yes (COVID PNA 4mos ago w/ mechanical ventilation x6days) - Cardiovascular System Hx Hypertension: No (noted in chart; patient denies and BP controlled this admission) - Central Nervous System CVA: No - Endocrine Hx Renal Disease: No Hx Liver Disease: Yes (transaminitis 2/2 gallbladder disease) Hx Non-Insulin Dependent Diabetes: Yes (noted in chart, patient denies) - Other Systems Hx Obesity: Yes (BMI 49)
[2022-01-09] MEDS ORDERED: ONDANSETRON 4 MG/2 ML INJ ONE ×2 (12:54→16:51)
[2022-01-09] MEDS ORDERED: KETOROLAC 30 MG/1 ML INJ ONE (12:54)
[2022-01-09] MEDS ORDERED: fentaNYL 100 MCG/2 ML INJ ONE (12:54)
[2022-01-09] MEDS ORDERED: ROCURONIUM 50 MG/5 ML INJ IV ONE (12:54)
[2022-01-09] MEDS ORDERED: propofoL 200 MG/20 ML VIAL IV ONE (12:54)
[2022-01-09] MEDS ORDERED: dexAMETHasone 20 MG/5 ML VIAL ONE (12:54)
[2022-01-09] MEDS ORDERED: LIDOCAINE MPF (2%) 20 MG/1 ML VIAL 5 ML ONE (12:54)
[2022-01-09] MEDS ORDERED: LIDOCAINE (2%) 20 MG/1 ML VIAL 20 ML MDV INFILTRATI ONE (13:19)
[2022-01-09] MEDS ORDERED: BUPIVACAINE-EPINEPHRINE/PF 0.5%-1:200,000 (30 ML) VIAL INFILTRATI ONE (13:20)
[2022-01-09] MEDS ORDERED: ceFAZolin 1 GM VIAL ONE (14:14)
[2022-01-09] MEDS ORDERED: PHENYLEPHRINE/NS 1,000 MCG/10 ML SYRINGE (OR USE) IV ONE (15:36)
[2022-01-09] MEDS ORDERED: SODIUM CHLORIDE P/F VIAL 10 ML 10 ML ONE (16:07)
[2022-01-09] MEDS ORDERED: SODIUM CHLORIDE P/F VIAL 10 ML 20 ML ONE ×2 (16:16→16:21)
[2022-01-09] MEDS ORDERED: BUPIVACAINE/PF (0.5%) 5 MG/1 ML 10 ML VIAL INFILTRATI ONE (16:25)
[2022-01-09] MEDS ORDERED: LIDOCAINE (1%) 10 MG/1 ML VIAL 20 ML MDV INFILTRATI ONE (16:25)
[2022-01-09] MEDS ORDERED: .SODIUM CHLORIDE 0.9% IRRIG SOLN 3000 ML IR ONE (16:25)
[2022-01-09] MEDS ORDERED: IOHEXOL 300 MG/ML 100ML IV ONE (16:26)
[2022-01-09] MEDS ORDERED: SODIUM CHLORIDE 0.9% P/F 10 ML VIAL IV ONE (16:27)
[2022-01-09] MEDS ORDERED: SUGAMMADEX SODIUM 200 MG/2 ML VIAL IV ONE (16:48)
--- NOTE | 2022-01-09 16:48 | Electrocardiograph Report ---
[facility] Test Date: 2022-01-09 Test Time: 07:16:21 Pat Name: IRVIN KONG JR Department: Room: A458 1 Gender: M Turn Laster: JENNIFER : 1955 Requested By: ARCENIO GAY Order Number: [id number] Reading MD: Victor M Rosa Measurements Intervals [place] Rate: 80 P: 51 LA: 172 QRS: 72 QRSD: 119 T: 18 QT: 395 QTc: 456 Interpretive Statements Sinus rhythm Nonspecific intraventricular conduction delay nonspecific St changes No previous ECG available for comparison Electronically Signed On 01-09-2022 16:47:35 EDT by Victor M Rosa
[2022-01-09] MEDS ORDERED: HYDROmorphone 0.5 MG/0.5 ML INJ ONE ×2 (16:53→17:20)
[2022-01-09] MEDS ORDERED: LACTATED RINGERS 1,000 ML ONE (17:21)
--- NOTE | 2022-01-09 17:28 | Operative Report ---
Operative Report Operative Report: Date: 01/09/2022 Preop diagnosis: cholecystitis with cholelithiasis Postop diagnosis: same with gangrenous changes to the gallbladder and intraoperative bleeding requiring conversion to open procedure Procedure: Laparoscopic cholecystectomy conversion to open attempted cholangiogram Surgeon: Dr. Raymond Sap Basis Consultant: Dr. Goldberg Anesthesia type: General endotracheal anesthesia Estimated blood loss: 1000 cc Specimen: Gallbladder and stone Procedure: Patient is taken to the OR and after timeout are completed the abdomen was prepped with ChloraPrep and draped in a sterile fashion. A 3 mm incision is made on the left upper quadrant a Veress needle was used to gain access to the peritoneal cavity. Abdomen is insufflated with CO2. A 5 mm incision is made in the right subcostal position midclavicular line and in the right lateral position. 2, 5 Hugo ports are established here. In the subxiphoid position a 12 mm port is placed. Gallbladder graspers are used through the right subcostal ports. Gangrenous changes to the gallbladder were noted. The gallbladder is aspirated for 50 cc of thick green bile. The gallbladder was retracted superiorly anteriorly and laterally. Adhesions are noted to prescribe the gallbladder as these are dissected free of the gallbladder oozing from all sites of dissection is noted. Extraction of blood clot became difficult as the aspiration system failed unclogged twice. Decision was then made to convert to an open procedure. Right subcostal incision is made. Right upper quadrant is packed with laparotomy pads. These were then removed. Hemostasis is good. Dissection then continues on the gallbladder in a dome down direction. Cystic duct is located. A relative Was placed at the confluence of the gallbladder energy cystic duct. Weber scissors was used to incise the cystic duct. Cholangiocatheter was placed into the cystic duct and attempted cholangiogram was made but not successful. 2 clips clips were placed on the distal cystic duct. The cystic duct was then divided. The gallbladder was then removed. Hemostasis is good as and is improved with the electrocautery hook and Surgicel powder. The right upper quadrant irrigated with copious amounts of saline and then aspirated. Sponge and needle counts are noted to be correct at this time. A MACEY drain is placed 3 hours antibiotics. Fascia was closed in 2 layers with a double-stranded 0 PDS suture. Subcutaneous tissues irrigated copious amounts saline. Skin is closed with colton. Sterile dressings placed over this. Patient tolerated procedure well.
[2022-01-09] MEDS: DOCUSATE SODIUM 100 MG CAP PO SCH ×2 (17:29→21:21)
--- NOTE | 2022-01-09 17:36 | XRay Report ---
INTRAOPERATIVE FLUOROSCOPY: Cholangiogram INDICATION / CLINICAL INFORMATION: ATTEMPTED CHOLANGIOGRAM. TECHNIQUE: Intraoperative spot images were obtained during the procedure. FINDINGS / IMPRESSION: Please see surgical operative report for detail. Fluoroscopy Time: 1 minute 12 seconds. Fluoroscopy Images: 1. Signer Name: Eros Miller MD Signed: 01/09/2022 5:31 PM Workstation Name: [id number]
[2022-01-09] MEDS: HYDROmorphone 0.5 MG/0.5 ML INJ IV PRN ×3 (18:07→23:36)
[2022-01-09] MEDS: ENOXAPARIN 40 MG/0.4 ML INJ SUB-Q SCH (21:21)
[2022-01-10 04:43] LABS: Basophils % (Auto) 0.1 % (0.0-1.8); Eosinophils % (Auto) 0.1 % (0.0-4.3); Hematocrit 34.2 % (35.5-45.6); Hemoglobin 11.2 gm/dl (11.8-15.2); Lymphocytes # (Auto) 0.8 K/mm3 (1.2-5.4); Lymphocytes % (Auto) 8.3 % (13.4-35.0); Mean Corpuscular HGB Conc 33 % (32-34); Mean Corpuscular Volume 95 fl (84-94); Monocytes # (Auto) 0.6 K/mm3 (0.0-0.8); Monocytes % (Auto) 6.1 % (0.0-7.3); Platelet Count 193 K/mm3 (140-440); Red Blood Count 3.59 M/mm3 (3.65-5.03); Red Cell Distribution Width 14.3 % (13.2-15.2)
[2022-01-10] MEDS: PIPERACIL/TAZOBACTA 4.5/NS 100 4.5 GM/100 ML VIAL IV SCH (04:51)
[2022-01-10] MEDS: HYDROmorphone 0.5 MG/0.5 ML INJ IV PRN (04:59)
[2022-01-10 05:00] LABS: Alanine Aminotransferase 98 units/L (7-56); Albumin 1.9 g/dL (3.9-5); BUN/Creatinine Ratio 22; Blood Urea Nitrogen 22 mg/dL (9-20); Calcium 8.1 mg/dL (8.4-10.2); Hemolysis Index 27
[2022-01-10] MEDS: DOCUSATE SODIUM 100 MG CAP PO SCH ×2 (09:17→21:32)
--- NOTE | 2022-01-10 14:04 | Progress Note ---
Assessment and Plan Assessment and plan: #Acute cholecystitis-resolved -s/p laproscopic cholecystectomy on 01/09 -CMP labs improving -currently with MACEY drain -anticipate patient will be stable for discharge tomorrow #Intractable nausea/vomiting- resolved -likely secondary to above #Hematuria-resolved #history of nephrolithiasis -blood seen in UA and in zimmerman sample, resolved -continue zimmerman while inpatient -Patient will follow with Urologist as outpatient #Hypertension -IV hydralazine as needed #Hyperglycemia -will continue to monitor through labs -patient likely pre-diabetic due to size -no intervention at this time #Morbid obesity #Weight loss counseling #Exercise counseling -BMI 46.6 -Counseled patient on the importance of weight loss, incorporating exercise, and dietary changes (lean meats, fresh fruits and vegetables, and water intake). Patient expresses understanding. -Patient may benefit from bariatric surgical consultation as outpatient -Time: +15 min #Advanced care planning -Disease education conducted, care plan discussed, diagnoses discussed, prognosis discussed, and patient acknowledges understanding with care plan -Time: +30 min History Interval history: No acute events overnight. Patient reports feeling well besides having mild pain with movement in his belly. He denies nausea, vomiting and shortness of breath. He has had lower extremity swelling since being diagnosed with COVID- pneumonia in the past. He declines further work-up of the edema at this moment. Hospitalist Physical - Physical exam Narrative exam: GENERAL: Obese. In no acute distress. HEENT: Normocephalic. Atraumatic. CHEST/LUNGS: CTAB on room air HEART/CARDIOVASCULAR: RRR. No murmur, rubs or gallops appreciated. ABDOMEN: Obese. MACEY drain in place draining old blood. +BS. ND. Mildly TTP. SKIN: No rashes noted. NEURO: No focal motor deficit. Follows all commands. MUSCULOSKELETAL: No joint effusion EXTREMITIES: No cyanosis, clubbing. BLE non-pitting edema. PSYCH: Cooperative. - Constitutional Vitals: Temp Pulse Resp BP Pulse Ox 97.3 F L 83 18 98/68 95 01/10/22 12:23 01/10/22 12:23 01/10/22 12:23 01/10/22 12:23 01/10/22 12:23 General appearance: Present: no acute distress, well-nourished, obese (Morbidly obese) HEART Score - HEART Score Troponin: Troponin T < 0.010 ng/mL (0.00-0.029) 01/04/22 03:06 Results - Labs CBC & Chem 7: 01/10/22 03:40 01/10/22 03:40 Labs: Laboratory Last Values WBC 9.2 K/mm3 (4.5-11.0) 01/10/22 03:40 RBC 3.59 M/mm3 (3.65-5.03) L 01/10/22 03:40 Hgb 11.2 gm/dl (11.8-15.2) L 01/10/22 03:40 Hct 34.2 % (35.5-45.6) L 01/10/22 03:40 MCV 95 fl (84-94) H 01/10/22 03:40 MCH 31 pg (28-32) 01/10/22 03:40 MCHC 33 % (32-34) 01/10/22 03:40 RDW 14.3 % (13.2-15.2) 01/10/22 03:40 Plt Count 193 K/mm3 (140-440) 01/10/22 03:40 Lymph % (Auto) 8.3 % (13.4-35.0) L 01/10/22 03:40 [place] % (Auto) 6.1 % (0.0-7.3) 01/10/22 03:40 Eos % (Auto) 0.1 % (0.0-4.3) 01/10/22 03:40 Baso % (Auto) 0.1 % (0.0-1.8) 01/10/22 03:40 Lymph # (Auto) 0.8 K/mm3 (1.2-5.4) L 01/10/22 03:40 [place] # (Auto) 0.6 K/mm3 (0.0-0.8) 01/10/22 03:40 Eos # (Auto) 0.0 K/mm3 (0.0-0.4) 01/10/22 03:40 Baso # (Auto) 0.0 K/mm3 (0.0-0.1) 01/10/22 03:40 Seg Neutrophils % 85.4 % (40.0-70.0) H 01/10/22 03:40 Seg Neutrophils # 7.9 K/mm3 (1.8-7.7) H 01/10/22 03:40 PT 14.9 Sec. (12.2-14.9) 01/09/22 04:59 INR 1.05 (0.87-1.13) 01/09/22 04:59 Sodium 135 mmol/L (137-145) L 01/10/22 03:40 Potassium 4.2 mmol/L (3.6-5.0) 01/10/22 03:40 Chloride 99.3 mmol/L (98-107) 01/10/22 03:40 Carbon Dioxide 25 mmol/L (22-30) 01/10/22 03:40 Anion Gap 15 mmol/L 01/10/22 03:40 BUN 22 mg/dL (9-20) H 01/10/22 03:40 Creatinine 1.0 mg/dL (0.8-1.3) 01/10/22 03:40 Estimated GFR > 60 ml/min 01/10/22 03:40 BUN/Creatinine Ratio 22 % 01/10/22 03:40 Glucose 146 mg/dL (75-100) H 01/10/22 03:40 POC Glucose 117 mg/dL (70-105) H 01/09/22 17:33 Calcium 8.1 mg/dL (8.4-10.2) L 01/10/22 03:40 Total Bilirubin 2.10 mg/dL (0.1-1.2) H 01/10/22 03:40 AST 170 units/L (5-40) H 01/10/22 03:40 ALT 98 units/L (7-56) H 01/10/22 03:40 Alkaline Phosphatase 219 units/L (35-129) H 01/10/22 03:40 Troponin T < 0.010 ng/mL (0.00-0.029) 01/04/22 03:06 Total Protein 5.9 g/dL (6.3-8.2) L 01/10/22 03:40 Albumin 1.9 g/dL (3.9-5) L 01/10/22 03:40 Albumin/Globulin Ratio 0.5 % 01/10/22 03:40 Lipase 71 units/L (13-60) H 01/09/22 19:54 Urine Color Dark yellow (Yellow) 01/07/22 14:25 Urine Turbidity Clear (Clear) 01/07/22 14:25 Urine pH 5.0 (5.0-7.0) 01/07/22 14:25 Ur Specific [place] 1.015 (1.003-1.030) 01/07/22 14:25 Urine Protein 100 mg/dl mg/dL (Negative) 01/07/22 14:25 Urine Glucose (UA) Negative mg/dL (Negative) 01/07/22 14:25 Urine Ketones 160 mg/dL (Negative) 01/07/22 14:25 Urine Blood 3+ (Negative) 01/07/22 14:25 Urine Nitrite Negative (Negative) 01/07/22 14:25 Ur Reducing Substances Not Reportable 01/07/22 14:25 Urine Bilirubin Negative (Negative) 01/07/22 14:25 Urine Ictotest Not Reportable 01/07/22 14:25 Urine Urobilinogen < 2.0 mg/dL (<2.0) 01/07/22 14:25 Ur Leukocyte Esterase Negative (Negative) 01/07/22 14:25 Urine WBC (Auto) 6.0 /HPF (0.0-6.0) 01/07/22 14:25 Urine RBC (Auto) 6.0 /HPF (0.0-6.0) 01/07/22 14:25 U Epithel Cells (Auto) 1.0 /HPF (0-13.0) 01/04/22 Unknown Urine Bacteria (Auto) 1+ /HPF (Negative) 01/04/22 Unknown Hyaline Casts 4 /LPF 01/04/22 Unknown Urine Mucus Few /HPF 01/07/22 14:25 SARS-CoV-2 (PCR) Negative (Negative) 01/09/22 12:00 Blood Type O POSITIVE 01/09/22 15:50 Antibody Screen Negative 01/09/22 15:50 Crossmatch See Detail 01/09/22 15:50 Zimmerman/IV: Voiding Method Indwelling Catheter Active Medications - Current Medications Current Medications: Generic Name Dose Route Start Last Admin Trade Name Freq PRN Reason Stop Dose Admin Acetaminophen 650 mg 01/04/22 05:15 01/06/22 21:35 Acetaminophen 325 Mg Tab PO 650 mg Q4H PRN Administration Pain MILD(1-3)/Fever >100.5/HIGUERA Docusate Sodium 100 mg 01/08/22 11:00 01/10/22 09:17 Docusate Sodium 100 Mg Cap PO Not Given BID [facility] Enoxaparin Sodium 40 mg 01/04/22 22:00 01/09/22 21:21 Enoxaparin 40 Mg/0.4 Ml Inj SUB-Q 40 mg QDAY@2200 ZEB Administration Protocol Hydralazine HCl 10 mg 01/04/22 10:00 Hydralazine 20 Mg/1 Ml Inj IV Q4HR PRN Hypertension Ibuprofen 600 mg 01/04/22 10:00 01/05/22 09:47 Ibuprofen 600 Mg Tab PO 600 mg Q6H PRN Administration Pain, Mild (1-3) Metoclopramide HCl 10 mg 01/04/22 05:15 01/04/22 05:36 Metoclopramide 10 Mg/2 Ml Inj IV 10 mg Q6H PRN Administration Nausea And Vomiting Morphine Sulfate 2 mg 01/04/22 10:00 01/05/22 21:41 Morphine 2 Mg/1 Ml Inj IV 2 mg Q4H PRN Administration Pain, Moderate (4-6) Ondansetron HCl 4 mg 01/04/22 10:00 01/04/22 20:57 Ondansetron 4 Mg/2 Ml Inj IV 4 mg Q4H PRN Administration Nausea And Vomiting Sodium Chloride 10 ml 01/04/22 10:00 01/10/22 09:17 Sodium Chloride 0.9% 10 Ml Flush Syringe IV 10 ml BID ZEB Administration
[2022-01-10] MEDS: MORPHINE 2 MG/1 ML INJ IV PRN (15:48)
--- NOTE | 2022-01-10 20:37 | Progress Note ---
Assessment and Plan Pt with acute calculous cholecystitis. Patient status post open cholecystectomy for gangrenous gallbladder. His labs are improved. His total bilirubin is decreased from 3.9-2.1. At bedside today he feels some pain but is hungry. And is requesting food. He also notes that he has had flatus. Advance patient to a soft diet as tolerated. Continue IV antibiotics and follow labs further elevation of his bilirubin. Subjective Date of service: 01/10/22 Patient Reports: Positive: no new complaints, feels better Narrative: Patient status post open cholecystectomy for gangrenous gallbladder. His labs are improved. His total bilirubin is decreased from 3.9-2.1. At bedside today he feels some pain but is hungry. And is requesting food. He also notes that he has had flatus. Advance patient to a soft diet as tolerated. Continue IV antibiotics and follow labs further elevation of his bilirubin. Objective Vital Signs - 12hr 01/10/22 01/10/22 01/10/22 10:00 12:23 16:01 Temperature 97.3 F L 97.3 F L Pulse Rate 75 83 83 Respiratory 18 18 18 Rate Blood Pressure 98/68 111/61 O2 Sat by Pulse 96 95 93 Oximetry 01/10/22 19:20 Temperature 97.7 F Pulse Rate 88 Respiratory 17 Rate Blood Pressure 96/49 O2 Sat by Pulse 94 Oximetry - Labs 01/10/22 03:40 01/10/22 03:40 Diabetes panel 01/10/22 Range/Units 03:40 Sodium 135 L (137-145) mmol/L Potassium 4.2 (3.6-5.0) mmol/L Chloride 99.3 (98-107) mmol/L Carbon Dioxide 25 (22-30) mmol/L BUN 22 H (9-20) mg/dL Creatinine 1.0 (0.8-1.3) mg/dL Glucose 146 H (75-100) mg/dL Calcium 8.1 L (8.4-10.2) mg/dL AST 170 H (5-40) units/L ALT 98 H (7-56) units/L Alkaline Phosphatase 219 H (35-129) units/L Total Protein 5.9 L (6.3-8.2) g/dL Albumin 1.9 L (3.9-5) g/dL Calcium panel 01/10/22 Range/Units 03:40 Calcium 8.1 L (8.4-10.2) mg/dL Albumin 1.9 L (3.9-5) g/dL Pituitary panel 01/10/22 Range/Units 03:40 Sodium 135 L (137-145) mmol/L Potassium 4.2 (3.6-5.0) mmol/L Chloride 99.3 (98-107) mmol/L Carbon Dioxide 25 (22-30) mmol/L BUN 22 H (9-20) mg/dL Creatinine 1.0 (0.8-1.3) mg/dL Glucose 146 H (75-100) mg/dL Calcium 8.1 L (8.4-10.2) mg/dL Adrenal panel 01/10/22 Range/Units 03:40 Sodium 135 L (137-145) mmol/L Potassium 4.2 (3.6-5.0) mmol/L Chloride 99.3 (98-107) mmol/L Carbon Dioxide 25 (22-30) mmol/L BUN 22 H (9-20) mg/dL Creatinine 1.0 (0.8-1.3) mg/dL Glucose 146 H (75-100) mg/dL Calcium 8.1 L (8.4-10.2) mg/dL Total Bilirubin 2.10 H (0.1-1.2) mg/dL AST 170 H (5-40) units/L ALT 98 H (7-56) units/L Alkaline Phosphatase 219 H (35-129) units/L Total Protein 5.9 L (6.3-8.2) g/dL Albumin 1.9 L (3.9-5) g/dL
[2022-01-10] MEDS: ENOXAPARIN 40 MG/0.4 ML INJ SUB-Q SCH (21:33)
[2022-01-10] MEDS: IBUPROFEN 600 MG TAB PO PRN (21:34)
[2022-01-11] MEDS: MORPHINE 2 MG/1 ML INJ IV PRN ×3 (00:33→18:38)
[2022-01-11] MEDS: DOCUSATE SODIUM 100 MG CAP PO SCH ×2 (09:14→22:09)
[2022-01-11] MEDS: PIPERACIL/TAZOBACTA 4.5/NS 100 4.5 GM/100 ML VIAL IV SCH ×2 (09:14→15:53)
[2022-01-11 10:10] LABS: Alanine Aminotransferase 106 units/L (7-56); Albumin 2.6 g/dL (3.9-5); BUN/Creatinine Ratio 26; Blood Urea Nitrogen 29 mg/dL (9-20); Calcium 8.2 mg/dL (8.4-10.2)
[2022-01-11 10:11] LABS: Hemolysis Index 0
--- NOTE | 2022-01-11 11:00 | Progress Note ---
Assessment and Plan Assessment and plan: #Acute cholecystitis-resolved #bile leakage -s/p laproscopic cholecystectomy on 01/09 -CMP labs improving -currently with MACEY drain with bile draining -GI consulted, assistance appreciated -plan for ERCP tomorrow #Intractable nausea/vomiting- resolved -likely secondary to above #Hematuria-resolved #history of nephrolithiasis -blood seen in UA and in zimmerman sample, resolved -continue zimmerman while inpatient -Patient will follow with Urologist as outpatient #Hypertension -IV hydralazine as needed #Hyperglycemia -will continue to monitor through labs -patient likely pre-diabetic due to size -no intervention at this time #Morbid obesity #Weight loss counseling #Exercise counseling -BMI 46.6 -Counseled patient on the importance of weight loss, incorporating exercise, and dietary changes (lean meats, fresh fruits and vegetables, and water intake). Patient expresses understanding. -Patient may benefit from bariatric surgical consultation as outpatient -Time: +15 min #Advanced care planning -Disease education conducted, care plan discussed, diagnoses discussed, prognosis discussed, and patient acknowledges understanding with care plan -Time: +30 min History Interval history: No acute events overnight. Patient reports feeling well besides having shoulder and back pain. He denies nausea, vomiting and shortness of breath. He has no other acute complaints at this time. Hospitalist Physical - Physical exam Narrative exam: GENERAL: Obese. In no acute distress. HEENT: Normocephalic. Atraumatic. CHEST/LUNGS: CTAB on room air HEART/CARDIOVASCULAR: RRR. No murmur, rubs or gallops appreciated. ABDOMEN: Obese. Abdominal binder in place. MACEY drain in place draining bile. +BS. ND. SKIN: No rashes noted. NEURO: No focal motor deficit. Follows all commands. MUSCULOSKELETAL: No joint effusion EXTREMITIES: No cyanosis, clubbing. BLE non-pitting edema. PSYCH: Cooperative. - Constitutional Vitals: Temp Pulse Resp BP Pulse Ox 97.5 F L 80 18 114/75 98 01/11/22 08:20 01/11/22 08:20 01/11/22 08:20 01/11/22 08:20 01/11/22 08:20 General appearance: Present: no acute distress, well-nourished, obese (Morbidly obese) HEART Score - HEART Score Troponin: Troponin T < 0.010 ng/mL (0.00-0.029) 01/04/22 03:06 Results - Labs CBC & Chem 7: 01/10/22 03:40 01/11/22 Unknown Labs: Laboratory Last Values WBC 9.2 K/mm3 (4.5-11.0) 01/10/22 03:40 RBC 3.59 M/mm3 (3.65-5.03) L 01/10/22 03:40 Hgb 11.2 gm/dl (11.8-15.2) L 01/10/22 03:40 Hct 34.2 % (35.5-45.6) L 01/10/22 03:40 MCV 95 fl (84-94) H 01/10/22 03:40 MCH 31 pg (28-32) 01/10/22 03:40 MCHC 33 % (32-34) 01/10/22 03:40 RDW 14.3 % (13.2-15.2) 01/10/22 03:40 Plt Count 193 K/mm3 (140-440) 01/10/22 03:40 Lymph % (Auto) 8.3 % (13.4-35.0) L 01/10/22 03:40 [place] % (Auto) 6.1 % (0.0-7.3) 01/10/22 03:40 Eos % (Auto) 0.1 % (0.0-4.3) 01/10/22 03:40 Baso % (Auto) 0.1 % (0.0-1.8) 01/10/22 03:40 Lymph # (Auto) 0.8 K/mm3 (1.2-5.4) L 01/10/22 03:40 [place] # (Auto) 0.6 K/mm3 (0.0-0.8) 01/10/22 03:40 Eos # (Auto) 0.0 K/mm3 (0.0-0.4) 01/10/22 03:40 Baso # (Auto) 0.0 K/mm3 (0.0-0.1) 01/10/22 03:40 Seg Neutrophils % 85.4 % (40.0-70.0) H 01/10/22 03:40 Seg Neutrophils # 7.9 K/mm3 (1.8-7.7) H 01/10/22 03:40 PT 14.9 Sec. (12.2-14.9) 01/09/22 04:59 INR 1.05 (0.87-1.13) 01/09/22 04:59 Sodium 137 mmol/L (137-145) 01/11/22 Unknown Potassium 4.2 mmol/L (3.6-5.0) 01/11/22 Unknown Chloride 98.3 mmol/L (98-107) 01/11/22 Unknown Carbon Dioxide 30 mmol/L (22-30) 01/11/22 Unknown Anion Gap 13 mmol/L 01/11/22 Unknown BUN 29 mg/dL (9-20) H 01/11/22 Unknown Creatinine 1.1 mg/dL (0.8-1.3) 01/11/22 Unknown Estimated GFR > 60 ml/min 01/11/22 Unknown BUN/Creatinine Ratio 26 % 01/11/22 Unknown Glucose 134 mg/dL (75-100) H 01/11/22 Unknown POC Glucose 117 mg/dL (70-105) H 01/09/22 17:33 Calcium 8.2 mg/dL (8.4-10.2) L 01/11/22 Unknown Total Bilirubin 1.80 mg/dL (0.1-1.2) H 01/11/22 Unknown AST 210 units/L (5-40) H 01/11/22 Unknown ALT 106 units/L (7-56) H 01/11/22 Unknown Alkaline Phosphatase 272 units/L (35-129) H 01/11/22 Unknown Troponin T < 0.010 ng/mL (0.00-0.029) 01/04/22 03:06 Total Protein 5.5 g/dL (6.3-8.2) L 01/11/22 Unknown Albumin 2.6 g/dL (3.9-5) L 01/11/22 Unknown Albumin/Globulin Ratio 0.9 % 01/11/22 Unknown Lipase 71 units/L (13-60) H 01/09/22 19:54 Urine Color Dark yellow (Yellow) 01/07/22 14:25 Urine Turbidity Clear (Clear) 01/07/22 14:25 Urine pH 5.0 (5.0-7.0) 01/07/22 14:25 Ur Specific [place] 1.015 (1.003-1.030) 01/07/22 14:25 Urine Protein 100 mg/dl mg/dL (Negative) 01/07/22 14:25 Urine Glucose (UA) Negative mg/dL (Negative) 01/07/22 14:25 Urine Ketones 160 mg/dL (Negative) 01/07/22 14:25 Urine Blood 3+ (Negative) 01/07/22 14:25 Urine Nitrite Negative (Negative) 01/07/22 14:25 Ur Reducing Substances Not Reportable 01/07/22 14:25 Urine Bilirubin Negative (Negative) 01/07/22 14:25 Urine Ictotest Not Reportable 01/07/22 14:25 Urine Urobilinogen < 2.0 mg/dL (<2.0) 01/07/22 14:25 Ur Leukocyte Esterase Negative (Negative) 01/07/22 14:25 Urine WBC (Auto) 6.0 /HPF (0.0-6.0) 01/07/22 14:25 Urine RBC (Auto) 6.0 /HPF (0.0-6.0) 01/07/22 14:25 U Epithel Cells (Auto) 1.0 /HPF (0-13.0) 01/04/22 Unknown Urine Bacteria (Auto) 1+ /HPF (Negative) 01/04/22 Unknown Hyaline Casts 4 /LPF 01/04/22 Unknown Urine Mucus Few /HPF 01/07/22 14:25 SARS-CoV-2 (PCR) Negative (Negative) 01/09/22 12:00 Blood Type O POSITIVE 01/09/22 15:50 Antibody Screen Negative 01/09/22 15:50 Crossmatch See Detail 01/09/22 15:50 Zimmerman/IV: Voiding Method Indwelling Catheter Active Medications - Current Medications Current Medications: Generic Name Dose Route Start Last Admin Trade Name Freq PRN Reason Stop Dose Admin Acetaminophen 650 mg 01/04/22 05:15 01/06/22 21:35 Acetaminophen 325 Mg Tab PO 650 mg Q4H PRN Administration Pain MILD(1-3)/Fever >100.5/HIGUERA Docusate Sodium 100 mg 01/08/22 11:00 01/11/22 09:14 Docusate Sodium 100 Mg Cap PO 100 mg BID ZEB Administration Enoxaparin Sodium 40 mg 01/04/22 22:00 08/16/22 21:33 Enoxaparin 40 Mg/0.4 Ml Inj SUB-Q 40 mg QDAY@2200 ZEB Administration Protocol Hydralazine HCl 10 mg 01/04/22 10:00 Hydralazine 20 Mg/1 Ml Inj IV Q4HR PRN Hypertension Piperacillin Sod/Tazobactam Sod 4.5 gm in 100 mls @ 200 mls/hr 01/11/22 08:00 01/11/22 09:14 Zosyn/Ns 4.5gm/100ml IV 200 mls/hr Q8H ZEB Administration Protocol Ibuprofen 600 mg 01/04/22 10:00 01/10/22 21:34 Ibuprofen 600 Mg Tab PO 600 mg Q6H PRN Administration Pain, Mild (1-3) Metoclopramide HCl 10 mg 01/04/22 05:15 01/04/22 05:36 Metoclopramide 10 Mg/2 Ml Inj IV 10 mg Q6H PRN Administration Nausea And Vomiting Morphine Sulfate 2 mg 01/04/22 10:00 01/11/22 04:05 Morphine 2 Mg/1 Ml Inj IV 2 mg Q4H PRN Administration Pain, Moderate (4-6) Ondansetron HCl 4 mg 01/04/22 10:00 01/04/22 20:57 Ondansetron 4 Mg/2 Ml Inj IV 4 mg Q4H PRN Administration Nausea And Vomiting Sodium Chloride 10 ml 01/04/22 10:00 01/11/22 09:14 Sodium Chloride 0.9% 10 Ml Flush Syringe IV 10 ml BID ZEB Administration
--- NOTE | 2022-01-11 11:05 | Gastroenterology Consultation ---
History of Present Illness - Reason for Consult Consult date: 01/11/22 Bile Leak Requesting physician: BEHZAD QUACH - History of Present Illness The patient is a 66 yo male admitted with a gangrenous gallbladder, who ended up having an open CCY 2 days ago due to adhesions/inflammation. He had a MACEY drain placed at that time, and in the last 24 hours, has put out (estimated) over 250ml of bile. It is being changed every 2-4 hours. He has no F/C and denies severe RUQ pain despite the surgery. He is tolerating a PO diet without N/V. No blood in stools or severe blood in MACEY drain. Past History Past Medical History: other (Morbid obesity). denies: diabetes, hypertension Past Surgical History: Other (Collapsed lung status post surgery, low back surgery, Open CCY (this admit)) Social history: denies: smoking, alcohol abuse, prescription drug abuse Family history: no significant family history Medications and Allergies Allergies Allergy/AdvReac Type Severity Reaction Status Date / Time No Known Allergies Allergy Verified 01/06/22 09:51 Home Medications Medication Instructions Recorded Confirmed Last Taken Type No Known Home Medications [No 01/04/22 01/06/22 Unknown History Reported Home Medications] Active Meds: Active Medications Acetaminophen (Acetaminophen 325 Mg Tab) 650 mg PO Q4H PRN PRN Reason: Pain MILD(1-3)/Fever >100.5/HIGUERA Last Admin: 01/06/22 21:35 Dose: 650 mg Docusate Sodium (Docusate Sodium 100 Mg Cap) 100 mg PO BID ZEB Last Admin: 01/11/22 09:14 Dose: 100 mg Enoxaparin Sodium (Enoxaparin 40 Mg/0.4 Ml Inj) 40 mg SUB-Q QDAY@2200 ZEB; Protocol Last Admin: 01/10/22 21:33 Dose: 40 mg Hydralazine HCl (Hydralazine 20 Mg/1 Ml Inj) 10 mg IV Q4HR PRN PRN Reason: Hypertension Piperacillin Sod/Tazobactam Sod (Zosyn/Ns 4.5gm/100ml) 4.5 gm in 100 mls @ 200 mls/hr IV Q8H ZEB; Protocol Last Admin: 01/11/22 09:14 Dose: 200 mls/hr Ibuprofen (Ibuprofen 600 Mg Tab) 600 mg PO Q6H PRN PRN Reason: Pain, Mild (1-3) Last Admin: 01/10/22 21:34 Dose: 600 mg Metoclopramide HCl (Metoclopramide 10 Mg/2 Ml Inj) 10 mg IV Q6H PRN PRN Reason: Nausea And Vomiting Last Admin: 01/04/22 05:36 Dose: 10 mg Morphine Sulfate (Morphine 2 Mg/1 Ml Inj) 2 mg IV Q4H PRN PRN Reason: Pain, Moderate (4-6) Last Admin: 01/11/22 04:05 Dose: 2 mg Ondansetron HCl (Ondansetron 4 Mg/2 Ml Inj) 4 mg IV Q4H PRN PRN Reason: Nausea And Vomiting Last Admin: 01/04/22 20:57 Dose: 4 mg Sodium Chloride (Sodium Chloride 0.9% 10 Ml Flush Syringe) 10 ml IV BID ZEB Last Admin: 01/11/22 09:14 Dose: 10 ml I HAVE REVIEWED AND RECONCILED MEDICATIONS Review of Systems - Review of Systems All systems: negative (as noted in the HPI) Exam - Constitutional Vital Signs: Temp Pulse Resp BP Pulse Ox 97.5 F L 80 18 114/75 98 01/11/22 08:20 01/11/22 08:20 01/11/22 08:20 01/11/22 08:20 01/11/22 08:20 General appearance: no acute distress, obese - EENT Eyes: PERRL, EOM intact ENT: hearing intact, clear oral mucosa - Neck Neck: supple, normal ROM - Respiratory Respiratory effort: normal Respiratory: bilateral: CTA - Cardiovascular Rhythm: regular Heart Sounds: Present: S1 & S2 Extremities: no ischemia, No edema - Gastrointestinal General gastrointestinal: Present: soft, tender (Minimal RUQ tenderness), non- distended, other (MACEY bulb full of bile (50ml)) - Integumentary Integumentary: Present: clear, warm, dry - Neurologic Neurological: alert and oriented x3 - Psychiatric Psychiatric: appropriate mood/affect - Labs CBC & Chem 7: 01/10/22 03:40 01/11/22 Unknown Lab Results: Laboratory Results - last 24 hr 01/09/22 01/11/22 15:50 Unknown Sodium 137 Potassium 4.2 Chloride 98.3 Carbon Dioxide 30 Anion Gap 13 BUN 29 H Creatinine 1.1 Estimated GFR > 60 BUN/Creatinine Ratio 26 Glucose 134 H Calcium 8.2 L Total Bilirubin 1.80 H AST 210 H ALT 106 H Alkaline Phosphatase 272 H Total Protein 5.5 L Albumin 2.6 L Albumin/Globulin Ratio 0.9 Crossmatch See Detail Assessment and Plan 1. Gangrenous cholecystitis, s/p open CCY 2. Abdominal Adhesions 3. Post-operative bile leak - Given the severity of the leak, I would proceed to ERCP and not pursue HIDA at this point - Continue current abx - OK to continue regular diet for now - NPO after Mn orders written
[2022-01-11] MEDS: ENOXAPARIN 40 MG/0.4 ML INJ SUB-Q SCH (22:10)
[2022-01-12] MEDS: PIPERACIL/TAZOBACTA 4.5/NS 100 4.5 GM/100 ML VIAL IV SCH ×3 (00:03→17:45)
[2022-01-12] MEDS: MORPHINE 2 MG/1 ML INJ IV PRN ×2 (00:05→07:10)
[2022-01-12 06:27] LABS: Alanine Aminotransferase 79 units/L (7-56); Albumin 2.5 g/dL (3.9-5); BUN/Creatinine Ratio 29; Blood Urea Nitrogen 29 mg/dL (9-20); Calcium 7.8 mg/dL (8.4-10.2); Hemolysis Index 3
--- NOTE | 2022-01-12 08:48 | Gastroenterology Progress Note ---
Assessment and Plan - Patient Problems (1) Bile leak, postoperative Current Visit: Yes Status: Acute Plan to address problem: - Discussed with Surgery; possible leak from accessory duct that will resolve without intervention. - Will get a HIDA scan for confirmation after discussion with Surgery. - ERCP as needed. - Continue current abx. Subjective Date of service: 01/12/22 Principal diagnosis: Bile leak Interval history: The patient feels well without N/V/abdominal pain. He continues to have output from the RUQ drain. Objective - Constitutional Vitals: Temp Pulse Resp BP Pulse Ox 97.5 F L 81 18 105/60 95 01/12/22 04:29 01/12/22 04:29 01/12/22 07:10 01/12/22 04:29 01/12/22 04:29 General appearance: no acute distress - EENT Eyes: PERRL, EOM intact - Respiratory Respiratory effort: normal Respiratory: bilateral: CTA - Cardiovascular Rhythm: regular Heart Sounds: Present: S1 & S2 - Gastrointestinal General gastrointestinal: Present: soft, tender (Mild tenderness), non- distended, other (MACEY drain in the RUQ with bile) - Labs CBC & Chem 7: 01/10/22 03:40 01/12/22 05:49 Labs: Laboratory Results - last 24 hr 01/09/22 01/11/22 01/12/22 15:50 Unknown 05:49 Sodium 137 138 Potassium 4.2 4.0 Chloride 98.3 102.0 Carbon Dioxide 30 28 Anion Gap 13 12 BUN 29 H 29 H Creatinine 1.1 1.0 Estimated GFR > 60 > 60 BUN/Creatinine Ratio 26 29 Glucose 134 H 104 H Calcium 8.2 L 7.8 L Total Bilirubin 1.80 H 1.50 H AST 210 H 123 H ALT 106 H 79 H Alkaline Phosphatase 272 H 235 H Total Protein 5.5 L 5.2 L Albumin 2.6 L 2.5 L Albumin/Globulin Ratio 0.9 0.9 Crossmatch See Detail
--- NOTE | 2022-01-12 10:49 | Progress Note ---
Assessment and Plan Assessment and plan: #Acute cholecystitis-resolved #bile leakage -s/p laproscopic cholecystectomy on 01/09 -CMP labs improving -currently with MACEY drain with bile draining -GI & General Surgery consulted, assistance appreciated -discussed with GI HIDA scan today, possible ERCP tomorrow depending on results #Intractable nausea/vomiting- resolved -likely secondary to above #Hematuria-resolved #history of nephrolithiasis -blood seen in UA and in zimmerman sample, resolved -continue zimmerman while inpatient -Patient will follow with Urologist as outpatient #Hypertension -IV hydralazine as needed #Hyperglycemia -will continue to monitor through labs -patient likely pre-diabetic due to size -no intervention at this time #Morbid obesity #Weight loss counseling #Exercise counseling -BMI 46.6 -Counseled patient on the importance of weight loss, incorporating exercise, and dietary changes (lean meats, fresh fruits and vegetables, and water intake). Patient expresses understanding. -Patient may benefit from bariatric surgical consultation as outpatient -Time: +15 min #Advanced care planning -Disease education conducted, care plan discussed, diagnoses discussed, prognosis discussed, and patient acknowledges understanding with care plan -Time: +30 min History Interval history: No acute events overnight. Patient reports complains of bilateral shoulder pain and occasional burning in his stomach. He denies nausea, vomiting and shortness of breath. We discussed updates to his care plan and HIDA scan later today. Hospitalist Physical - Physical exam Narrative exam: GENERAL: Obese. In no acute distress. HEENT: Normocephalic. Atraumatic. CHEST/LUNGS: CTAB on room air HEART/CARDIOVASCULAR: RRR. No murmur, rubs or gallops appreciated. ABDOMEN: Obese. MACEY drain in place draining bile. +BS. ND. SKIN: No rashes noted. NEURO: No focal motor deficit. Follows all commands. MUSCULOSKELETAL: No joint effusion EXTREMITIES: No cyanosis, clubbing. BLE non-pitting edema. PSYCH: Cooperative. - Constitutional Vitals: Temp Pulse Resp BP Pulse Ox 97.5 F L 81 18 105/60 95 01/12/22 04:29 01/12/22 04:29 01/12/22 07:10 01/12/22 04:29 01/12/22 04:29 General appearance: Present: no acute distress, well-nourished, obese (Morbidly obese) HEART Score - HEART Score Troponin: Troponin T < 0.010 ng/mL (0.00-0.029) 01/04/22 03:06 Results - Labs CBC & Chem 7: 01/10/22 03:40 01/12/22 05:49 Labs: Laboratory Last Values WBC 9.2 K/mm3 (4.5-11.0) 01/10/22 03:40 RBC 3.59 M/mm3 (3.65-5.03) L 01/10/22 03:40 Hgb 11.2 gm/dl (11.8-15.2) L 01/10/22 03:40 Hct 34.2 % (35.5-45.6) L 01/10/22 03:40 MCV 95 fl (84-94) H 01/10/22 03:40 MCH 31 pg (28-32) 01/10/22 03:40 MCHC 33 % (32-34) 01/10/22 03:40 RDW 14.3 % (13.2-15.2) 01/10/22 03:40 Plt Count 193 K/mm3 (140-440) 01/10/22 03:40 Lymph % (Auto) 8.3 % (13.4-35.0) L 01/10/22 03:40 [place] % (Auto) 6.1 % (0.0-7.3) 01/10/22 03:40 Eos % (Auto) 0.1 % (0.0-4.3) 01/10/22 03:40 Baso % (Auto) 0.1 % (0.0-1.8) 01/10/22 03:40 Lymph # (Auto) 0.8 K/mm3 (1.2-5.4) L 01/10/22 03:40 [place] # (Auto) 0.6 K/mm3 (0.0-0.8) 01/10/22 03:40 Eos # (Auto) 0.0 K/mm3 (0.0-0.4) 01/10/22 03:40 Baso # (Auto) 0.0 K/mm3 (0.0-0.1) 01/10/22 03:40 Seg Neutrophils % 85.4 % (40.0-70.0) H 01/10/22 03:40 Seg Neutrophils # 7.9 K/mm3 (1.8-7.7) H 01/10/22 03:40 PT 14.9 Sec. (12.2-14.9) 01/09/22 04:59 INR 1.05 (0.87-1.13) 01/09/22 04:59 Sodium 138 mmol/L (137-145) 01/12/22 05:49 Potassium 4.0 mmol/L (3.6-5.0) 01/12/22 05:49 Chloride 102.0 mmol/L (98-107) 01/12/22 05:49 Carbon Dioxide 28 mmol/L (22-30) 01/12/22 05:49 Anion Gap 12 mmol/L 01/12/22 05:49 BUN 29 mg/dL (9-20) H 01/12/22 05:49 Creatinine 1.0 mg/dL (0.8-1.3) 01/12/22 05:49 Estimated GFR > 60 ml/min 01/12/22 05:49 BUN/Creatinine Ratio 29 % 01/12/22 05:49 Glucose 104 mg/dL (75-100) H 01/12/22 05:49 POC Glucose 117 mg/dL (70-105) H 01/09/22 17:33 Calcium 7.8 mg/dL (8.4-10.2) L 01/12/22 05:49 Total Bilirubin 1.50 mg/dL (0.1-1.2) H 01/12/22 05:49 AST 123 units/L (5-40) H 01/12/22 05:49 ALT 79 units/L (7-56) H 01/12/22 05:49 Alkaline Phosphatase 235 units/L (35-129) H 01/12/22 05:49 Troponin T < 0.010 ng/mL (0.00-0.029) 01/04/22 03:06 Total Protein 5.2 g/dL (6.3-8.2) L 01/12/22 05:49 Albumin 2.5 g/dL (3.9-5) L 01/12/22 05:49 Albumin/Globulin Ratio 0.9 % 01/12/22 05:49 Lipase 71 units/L (13-60) H 01/09/22 19:54 Urine Color Dark yellow (Yellow) 01/07/22 14:25 Urine Turbidity Clear (Clear) 01/07/22 14:25 Urine pH 5.0 (5.0-7.0) 01/07/22 14:25 Ur Specific [place] 1.015 (1.003-1.030) 01/07/22 14:25 Urine Protein 100 mg/dl mg/dL (Negative) 01/07/22 14:25 Urine Glucose (UA) Negative mg/dL (Negative) 01/07/22 14:25 Urine Ketones 160 mg/dL (Negative) 01/07/22 14:25 Urine Blood 3+ (Negative) 01/07/22 14:25 Urine Nitrite Negative (Negative) 01/07/22 14:25 Ur Reducing Substances Not Reportable 01/07/22 14:25 Urine Bilirubin Negative (Negative) 01/07/22 14:25 Urine Ictotest Not Reportable 01/07/22 14:25 Urine Urobilinogen < 2.0 mg/dL (<2.0) 01/07/22 14:25 Ur Leukocyte Esterase Negative (Negative) 01/07/22 14:25 Urine WBC (Auto) 6.0 /HPF (0.0-6.0) 01/07/22 14:25 Urine RBC (Auto) 6.0 /HPF (0.0-6.0) 01/07/22 14:25 U Epithel Cells (Auto) 1.0 /HPF (0-13.0) 01/04/22 Unknown Urine Bacteria (Auto) 1+ /HPF (Negative) 01/04/22 Unknown Hyaline Casts 4 /LPF 01/04/22 Unknown Urine Mucus Few /HPF 01/07/22 14:25 SARS-CoV-2 (PCR) Negative (Negative) 01/09/22 12:00 Blood Type O POSITIVE 01/09/22 15:50 Antibody Screen Negative 01/09/22 15:50 Crossmatch See Detail 01/09/22 15:50 Zimmerman/IV: Voiding Method Indwelling Catheter Active Medications - Current Medications Current Medications: Generic Name Dose Route Start Last Admin Trade Name Freq PRN Reason Stop Dose Admin Acetaminophen 650 mg 01/04/22 05:15 01/06/22 21:35 Acetaminophen 325 Mg Tab PO 650 mg Q4H PRN Administration Pain MILD(1-3)/Fever >100.5/HIGUERA Docusate Sodium 100 mg 01/08/22 11:00 01/11/22 22:09 Docusate Sodium 100 Mg Cap PO 100 mg BID ZEB Administration Enoxaparin Sodium 40 mg 01/04/22 22:00 01/11/22 22:10 Enoxaparin 40 Mg/0.4 Ml Inj SUB-Q 40 mg QDAY@2200 ZEB Administration Protocol Hydralazine HCl 10 mg 01/04/22 10:00 Hydralazine 20 Mg/1 Ml Inj IV Q4HR PRN Hypertension Piperacillin Sod/Tazobactam Sod 4.5 gm in 100 mls @ 200 mls/hr 01/11/22 08:00 01/12/22 00:03 Zosyn/Ns 4.5gm/100ml IV 200 mls/hr Q8H ZEB Administration Protocol Ibuprofen 600 mg 01/04/22 10:00 01/10/22 21:34 Ibuprofen 600 Mg Tab PO 600 mg Q6H PRN Administration Pain, Mild (1-3) Metoclopramide HCl 10 mg 01/04/22 05:15 01/04/22 05:36 Metoclopramide 10 Mg/2 Ml Inj IV 10 mg Q6H PRN Administration Nausea And Vomiting Morphine Sulfate 2 mg 01/04/22 10:00 01/12/22 07:10 Morphine 2 Mg/1 Ml Inj IV 2 mg Q4H PRN Administration Pain, Moderate (4-6) Ondansetron HCl 4 mg 01/04/22 10:00 01/04/22 20:57 Ondansetron 4 Mg/2 Ml Inj IV 4 mg Q4H PRN Administration Nausea And Vomiting Sodium Chloride 10 ml 01/04/22 10:00 01/11/22 22:10 Sodium Chloride 0.9% 10 Ml Flush Syringe IV 10 ml BID ZEB Administration
--- NOTE | 2022-01-12 12:09 | Progress Note ---
Assessment and Plan Pt with acute calculous cholecystitis. No pancreatitis no jaundice. Pain already with signs of improvement. Will advance to clear liq diet at thsi time. Cont iv ab for leukocytosis. Patient is postop day #3 status post open cholecystectomy. He had some bilious drainage yesterday. His creatinine appears to have clear today. His bilirubin continues to improve and is 1.5 today We will check a HIDA scan at this time. Subjective Date of service: 01/12/22 Patient Reports: Positive: still having pain Narrative: Patient is postop day #3 status post open cholecystectomy for gangrene of the gallbladder. Patient's bilirubin continues to improve and is 1.5 today. Large amount of serous discharge is being captured by the MACEY. The amount of bilious discharge is markedly decreased. The pelvis may discussed with Dr. Palomares the supervising editor news reel. Plan to check a HIDA scan today and potentially do an ERCP if required. Objective Vital Signs - 12hr 01/12/22 01/12/22 01/12/22 00:32 04:29 07:10 Temperature 97.5 F L Pulse Rate 81 Respiratory 20 18 Rate Blood Pressure 105/60 O2 Sat by Pulse 96 95 Oximetry - Labs 01/10/22 03:40 01/12/22 05:49 Diabetes panel 01/12/22 Range/Units 05:49 Sodium 138 (137-145) mmol/L Potassium 4.0 (3.6-5.0) mmol/L Chloride 102.0 (98-107) mmol/L Carbon Dioxide 28 (22-30) mmol/L BUN 29 H (9-20) mg/dL Creatinine 1.0 (0.8-1.3) mg/dL Glucose 104 H (75-100) mg/dL Calcium 7.8 L (8.4-10.2) mg/dL AST 123 H (5-40) units/L ALT 79 H (7-56) units/L Alkaline Phosphatase 235 H (35-129) units/L Total Protein 5.2 L (6.3-8.2) g/dL Albumin 2.5 L (3.9-5) g/dL Calcium panel 01/12/22 Range/Units 05:49 Calcium 7.8 L (8.4-10.2) mg/dL Albumin 2.5 L (3.9-5) g/dL Pituitary panel 01/12/22 Range/Units 05:49 Sodium 138 (137-145) mmol/L Potassium 4.0 (3.6-5.0) mmol/L Chloride 102.0 (98-107) mmol/L Carbon Dioxide 28 (22-30) mmol/L BUN 29 H (9-20) mg/dL Creatinine 1.0 (0.8-1.3) mg/dL Glucose 104 H (75-100) mg/dL Calcium 7.8 L (8.4-10.2) mg/dL Adrenal panel 01/12/22 Range/Units 05:49 Sodium 138 (137-145) mmol/L Potassium 4.0 (3.6-5.0) mmol/L Chloride 102.0 (98-107) mmol/L Carbon Dioxide 28 (22-30) mmol/L BUN 29 H (9-20) mg/dL Creatinine 1.0 (0.8-1.3) mg/dL Glucose 104 H (75-100) mg/dL Calcium 7.8 L (8.4-10.2) mg/dL Total Bilirubin 1.50 H (0.1-1.2) mg/dL AST 123 H (5-40) units/L ALT 79 H (7-56) units/L Alkaline Phosphatase 235 H (35-129) units/L Total Protein 5.2 L (6.3-8.2) g/dL Albumin 2.5 L (3.9-5) g/dL
--- NOTE | 2022-01-12 14:28 | Nuclear Medicine Report ---
NUCLEAR MEDICINE HEPATOBILIARY SCAN INDICATION / CLINICAL INFORMATION: bile leak post-op. TECHNIQUE: Radiotracer: Tc-99m mebrofenin (by IV): 5.5 mCi. Gallbladder Stimulant: None used. COMPARISON: None available. FINDINGS: HEPATIC ACTIVITY: Normal. BILIARY ACTIVITY: Normal. GALLBLADDER ACTIVITY: Surgically absent, there is some radiotracer uptake in the region of the gallbl adder fossa on the delayed images. SMALL BOWEL ACTIVITY: Normal IMPRESSION: Radiotracer collecting in the region of the gallbladder fossa on late and delayed images, concerning for biliary leak. Signer Name: Eladio Calero MD Signed: 01/12/2022 2:23 PM Workstation Name: [id number]
[2022-01-12] MEDS: KETOROLAC 30 MG/1 ML INJ IV PRN (17:46)
[2022-01-12] MEDS: DOCUSATE SODIUM 100 MG CAP PO SCH ×2 (17:53→21:14)
[2022-01-12] MEDS: ENOXAPARIN 40 MG/0.4 ML INJ SUB-Q SCH (21:14)
[2022-01-13] MEDS: PIPERACIL/TAZOBACTA 4.5/NS 100 4.5 GM/100 ML VIAL IV SCH ×3 (00:36→18:48)
[2022-01-13 05:40] LABS: Alanine Aminotransferase 58 units/L (7-56); Albumin 2.3 g/dL (3.9-5); BUN/Creatinine Ratio 23; Blood Urea Nitrogen 21 mg/dL (9-20); Calcium 7.4 mg/dL (8.4-10.2); Hemolysis Index 14
[2022-01-13] MEDS: DOCUSATE SODIUM 100 MG CAP PO SCH ×2 (11:24→21:39)
[2022-01-13] MEDS: KETOROLAC 30 MG/1 ML INJ IV PRN (11:26)
[2022-01-13] MEDS ORDERED: GLUCAGON (HUMAN RECOMBINANT) 1 MG/ML INJ ONE (12:00)
--- NOTE | 2022-01-13 12:15 | Progress Note ---
Assessment and Plan Pt with acute calculous cholecystitis. No pancreatitis no jaundice. Pain already with signs of improvement. Will advance to clear liq diet at thsi time. Cont iv ab for leukocytosis. Patient is hungry today. MACEY output is now being monitored directly to suction. Some bilious tinged drainage is noted. HIDA scan from yesterday shows the c ommon duct to be intact with tracer activity in the small bowel. There is also a bile leak that is present. Discussed the findings with Dr. Palomares from gastroenterology who plans to do ERCP later today. Subjective Date of service: 01/13/22 Patient Reports: Positive: no new complaints, feels better Narrative: Patient is hungry today. MACEY output is now being monitored directly to suction. Some bilious tinged drainage is noted. HIDA scan from yesterday shows the common duct to be intact with tracer activity in the small bowel. There is also a bile leak that is present. Discussed the findings with Dr. Palomares from gastroenterology who plans to do ERCP later today. Objective Vital Signs - 12hr 01/13/22 01/13/22 01/13/22 05:00 08:05 12:00 Temperature 99.3 F 97.9 F 98.7 F Pulse Rate 83 86 86 Respiratory 20 18 Rate Blood Pressure 90/49 Blood Pressure 109/63 100/54 [Right] O2 Sat by Pulse 94 96 Oximetry - Labs 01/10/22 03:40 01/13/22 04:01 Diabetes panel 01/13/22 Range/Units 04:01 Sodium 135 L (137-145) mmol/L Potassium 4.1 (3.6-5.0) mmol/L Chloride 100.8 (98-107) mmol/L Carbon Dioxide 25 (22-30) mmol/L BUN 21 H (9-20) mg/dL Creatinine 0.9 (0.8-1.3) mg/dL Glucose 100 (75-100) mg/dL Calcium 7.4 L (8.4-10.2) mg/dL AST 71 H (5-40) units/L ALT 58 H (7-56) units/L Alkaline Phosphatase 202 H (35-129) units/L Total Protein 5.1 L (6.3-8.2) g/dL Albumin 2.3 L (3.9-5) g/dL Calcium panel 01/13/22 Range/Units 04:01 Calcium 7.4 L (8.4-10.2) mg/dL Albumin 2.3 L (3.9-5) g/dL Pituitary panel 01/13/22 Range/Units 04:01 Sodium 135 L (137-145) mmol/L Potassium 4.1 (3.6-5.0) mmol/L Chloride 100.8 (98-107) mmol/L Carbon Dioxide 25 (22-30) mmol/L BUN 21 H (9-20) mg/dL Creatinine 0.9 (0.8-1.3) mg/dL Glucose 100 (75-100) mg/dL Calcium 7.4 L (8.4-10.2) mg/dL Adrenal panel 01/13/22 Range/Units 04:01 Sodium 135 L (137-145) mmol/L Potassium 4.1 (3.6-5.0) mmol/L Chloride 100.8 (98-107) mmol/L Carbon Dioxide 25 (22-30) mmol/L BUN 21 H (9-20) mg/dL Creatinine 0.9 (0.8-1.3) mg/dL Glucose 100 (75-100) mg/dL Calcium 7.4 L (8.4-10.2) mg/dL Total Bilirubin 1.40 H (0.1-1.2) mg/dL AST 71 H (5-40) units/L ALT 58 H (7-56) units/L Alkaline Phosphatase 202 H (35-129) units/L Total Protein 5.1 L (6.3-8.2) g/dL Albumin 2.3 L (3.9-5) g/dL
[2022-01-13] MEDS ORDERED: propofoL 200 MG/20 ML VIAL IV ONE (14:39)
[2022-01-13] MEDS ORDERED: MIDAZOLAM 2 MG/2 ML INJ ONE ×2 (14:39→15:13)
[2022-01-13] MEDS ORDERED: WATER FOR IRRIG STERILE 250 ML BOTTLE IR ONE (14:41)
[2022-01-13] MEDS ORDERED: SODIUM CHLORIDE 0.9% 1000 ML 1,000 ML ONE ×2 (14:42→16:38)
[2022-01-13] MEDS ORDERED: SODIUM CHLORIDE 0.9% 100 ML ONE (14:42)
[2022-01-13] MEDS ORDERED: KETAMINE/STERILE WATER 50 MG/ML SYRINGE ONE (14:55)
--- NOTE | 2022-01-13 15:00 | Anesthesia Day of Surgery ---
Anesthesia Day of Surgery - Day of Surgery Patient Examined: Yes Patient H&P Reviewed: Yes Patient is NPO: Yes
--- NOTE | 2022-01-13 15:02 | Anesthesia Consultation ---
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
[2022-01-13] MEDS ORDERED: ePHEDrine SULFATE 50 MG/1 ML INJ ONE (15:14)
[2022-01-13] MEDS ORDERED: SUGAMMADEX SODIUM 200 MG/2 ML VIAL IV ONE (16:10)
[2022-01-13] MEDS ORDERED: fentaNYL 100 MCG/2 ML INJ ONE (16:18)
--- NOTE | 2022-01-13 16:35 | Post Operative Note ---
Pre-op diagnosis: Bile leak Post-op diagnosis: same (, Duodenal Ulcer, Irregular GE junction) Findings: 1. Normal ampulla 2. Clips in RUQ c/w CCY 3. PD not cannulated or injected 4. CBD attempted cannulation with Omnitome (unsuccessful) - Cannulation of CBD with Dreamtome/0.035 guidewire - CBD not dilated but trace contrast collection in cherri hepatis consistent with bile leak - 5mm biliary sphincterotomy performed - [id number] dual-flanged biliary stent placed in the CBD 5. Large amount of blood noted in stomach at beginning of procedure 6. Exchanged ERCP scope for EGD scope 7. 1cm duodenal bulb ulcer with pigmented based noted 8. Antrum of stomach lavaged and no ulcer seen 9. Severely irregular mucosa with exposed mucosa at GE jxn with blood present (?MWT versus NG/OG tube trauma) - Adherent clot but no active bleeding so did not treat Procedure: ERCP with biliary sphincterotomy and bilary stent insertion EGD Anesthesia: DON Surgeon: REBECCA MADDEN Estimated blood loss: other (Minimal from procedure, but large amount of blood noted in stomach) Pathology: none Specimen disposition: other (N/A) Condition: stable (Recs: 1.) Disposition: floor (Recs: 1. NPO for now. 2. D/C all NSAIDs, and continue abx. 3. Protonix IV BID. 4. Repeat CT A/P with contrast to assess GE junction. 5. Repeat EGD in 1-2 weeks to re-evaluate GE junction, sooner if severe hemorrhage.)
--- NOTE | 2022-01-13 17:27 | Post Anesthesia Evaluation ---
- Post Anesthesia Evaluation Patient Participated: Yes Airway Patent: Yes Stable Respiratory Function: Yes Nausea/Vomiting: No Temp > 96.8F: Yes Pain Manageable: Yes Adequeate Hydration: Yes Anesthesia Complications: No
[2022-01-13] MEDS ORDERED: ETOMIDATE 20 MG/10 ML INJ IV ONE (17:29)
[2022-01-13] MEDS ORDERED: PHENYLEPHRINE/NS 1,000 MCG/10 ML SYRINGE (OR USE) IV ONE (17:29)
[2022-01-13] MEDS ORDERED: ONDANSETRON 4 MG/2 ML INJ ONE (17:29)
[2022-01-13] MEDS ORDERED: SUCCINYLCHOLINE CHLORIDE 200 MG/10 ML INJ MDV ONE (17:30)
[2022-01-13] MEDS: SODIUM CHLORIDE 0.9% 1000 ML 1,000 ML IV SCH (18:51)
[2022-01-13] MEDS: ENOXAPARIN 40 MG/0.4 ML INJ SUB-Q SCH (21:39)
[2022-01-13] MEDS: PANTOPRAZOLE 40 MG INJ IV SCH (21:39)
--- NOTE | 2022-01-13 22:38 | Operative Report ---
DATE OF SURGERY: 01/13/2022 PROCEDURE PERFORMED: Endoscopic retrograde cholangiopancreatography with biliary sphincterotomy, balloon sweeping with biliary sphincterotomy and biliary stent insertion as well as esophagogastroduodenoscopy. PREOPERATIVE DIAGNOSIS: Bile leak. POSTOPERATIVE DIAGNOSES: Bile leak, duodenal ulcer, irregular GE junction. ENDOSCOPIST: Vishnu Palomares M.D. INSTRUMENT: The Olympus video endoscope. MEDICATIONS: GETA anesthesia by Anesthesia services. COMPLICATIONS: No apparent complications. ESTIMATED BLOOD LOSS: Minimal from the procedure, but the patient had a large amount of blood in his stomach at the start of the procedure. SPECIMENS: None. IMPLANTS: A 10-[place] x 5 cm dual flanged biliary stent placed in the common bile duct. ASSISTANTS: None. CONDITION AT COMPLETION: Stable. TECHNIQUE: The patient was informed of the risks and benefits of the procedure. He signed the informed consent to proceed. He was intubated and placed in the prone position. The above sedative medications were given. His vital signs remained stable throughout the procedure. The instrument was advanced from the mouth to the second portion of the duodenum under direct visualization. While passing through the stomach, it was noted to contain a large amount of blood, but we elected to perform the biliary portion of the procedure first. We initially tried to cannulate the normal-appearing ampulla with an Omni tome but were unsuccessful. We switched to a Dreamtome and a 0.035 guidewire and easily cannulated the common bile duct. A cholangiogram showed a small leakage of contrast in the area of the cherri hepatis rather than the cystic duct. We performed a 5 mm biliary sphincterotomy. A 10-[place] x 5 cm dual flanged biliary stent was placed across the ampulla into the common bile duct with good flow of bile. We then exchanged the ERCP scope for a usual adult upper endoscope to evaluate the blood in the stomach. The duodenal bulb showed a 1 cm ulcer with a pigmented base, but no evidence of an active visible vessel. The antrum showed no specific lesions. At the GE junction, there was severely irregular mucosa that had a large overlying clot that we could not completely washed off or removed. My concern is for mucosal disruption either from Alissa-Rosario tear versus NG/OG tube trauma. Because the clot was adherent and could not be lavaged off, we did not treat it further. The procedure was then terminated. FINDINGS: 1. Normal-appearing ampulla. 2. Clips present in the right upper quadrant consistent with cholecystectomy. 3. The pancreatic duct was not cannulated or injected. 4. The common bile duct had an attempted cannulation with an Omni tome, unsuccessful A. Cannulation was achieved at the common bile duct with a Dreamtome and a 0.035 guidewire. B. The common bile duct was not dilated, but there was a trace of contrast collection in the cherri hepatis consistent with a bile leak. C. A 5 mm biliary sphincterotomy was performed. D. A 10-[place] x 5 cm dual flange biliary stent was placed across the ampulla into the common bile duct with good flow of bile. 5. Large amount of blood noted in the stomach at the beginning of the procedure on passage of the ERCP scope. 6. The ERCP scope was exchanged for an adult upper endoscope and we used this to visualize the esophagus, stomach and duodenum. 7. 1 cm duodenal bulb ulcer with a pigmented base was noted, but no active bleeding was seen. 8. The antrum of the stomach was lavaged and seen relatively well with no evidence of active ulcer. 9. Severely irregular mucosa with exposed submucosal seen at the GE junction with blood present in a large adherent clot. A. My suspicion would be a Alissa-Rosario tear versus NG/OG tube trauma. B. There was an adherent clot present that could not be lavaged off, but no evidence of active hemorrhage underneath this, so we did not treat the lesion considering the amount of tissue disruption noted. RECOMMENDATIONS: 1. Nothing by mouth for now. 2. Discontinue all nonsteroidal anti-inflammatory drugs and continue his current antibiotics. 3. Protonix IV twice daily therapy. 4. Repeat CT scan of the abdomen and pelvis with contrast to assess the GE junction. 5. Repeat the upper endoscopy in 1-2 weeks to reevaluate the GE junction, sooner if severe hemorrhage is noted. TID: [id number] RECEIPT: [id number] CHARLIE/LLOYD
[2022-01-14] MEDS: PIPERACIL/TAZOBACTA 4.5/NS 100 4.5 GM/100 ML VIAL IV SCH ×4 (01:16→23:25)
[2022-01-14 06:28] LABS: Hematocrit 28.4 % (35.5-45.6); Hemoglobin 9.2 gm/dl (11.8-15.2); Mean Corpuscular HGB Conc 33 % (32-34); Mean Corpuscular Volume 96 fl (84-94); Platelet Count 278 K/mm3 (140-440); Red Blood Count 2.97 M/mm3 (3.65-5.03); Red Cell Distribution Width 13.9 % (13.2-15.2)
[2022-01-14 06:37] LABS: Alanine Aminotransferase 42 units/L (7-56); Albumin 2.1 g/dL (3.9-5); BUN/Creatinine Ratio 18; Blood Urea Nitrogen 16 mg/dL (9-20); Calcium 7.3 mg/dL (8.4-10.2); Hemolysis Index 3
[2022-01-14 07:23] LABS: Basophils % (Manual) 0 % (0.0-1.8); Hypochromasia Few; Platelet Estimate Consistent w Auto; Total Cells Counted 100
[2022-01-14] MEDS: PANTOPRAZOLE 40 MG INJ IV SCH ×2 (09:26→22:29)
[2022-01-14] MEDS: DOCUSATE SODIUM 100 MG CAP PO SCH ×2 (09:26→22:29)
[2022-01-14] MEDS: SODIUM CHLORIDE 0.9% 1000 ML 1,000 ML IV SCH ×2 (09:27→20:55)
--- NOTE | 2022-01-14 09:46 | Cat Scan Report ---
CT ABDOMEN AND PELVIS WITHOUT AND WITH CONTRAST INDICATION / CLINICAL INFORMATION: Bile leak; abnormal GE junction. TECHNIQUE: Axial CT images were obtained through the abdomen and pelvis before and after IV contrast. All CT scans at this location are performed using CT dose reduction for ALARA by means of automated exposure control. COMPARISON: CT dated 01/06/2022 FINDINGS: Exam is limited secondary to patient's inability to raise arms. LOWER CHEST: Bibasilar subsegmental atelectasis. Mild coronary artery calcifications. LIVER: No significant abnormality. GALLBLADDER: Absent. Gas and fluid collection the region the gallbladder fossa measures 4.4 x 4.4 cm on image 192 series 302. BILE DUCTS: Stranding and fluid tracking along the course of the common bile duct. Distal common bile duct stent is in place. Trace pneumobilia. PANCREAS: No significant abnormality. SPLEEN: No significant abnormality. ADRENALS: No significant abnormality. RIGHT KIDNEY / URETER: Nonobstructing interpolar calculus. LEFT KIDNEY / URETER: Nonobstructing calculi. STOMACH / SMALL BOWEL: Fluid and stranding adjacent to the proximal duodenum. Biliary stent terminate s in the proximal duodenum. COLON: No significant abnormality. APPENDIX: No significant abnormality. PERITONEUM: Right hemiabdomen approach surgical drain terminates in the subhepatic region. Trace free fluid. Gas and fluid collection in gallbladder fossa detailed above. LYMPH NODES: No significant adenopathy. AORTA / ARTERIES: No significant abnormality. IVC / VEINS: No significant abnormality. URINARY BLADDER: Leblanc catheter in place. REPRODUCTIVE ORGANS: No significant abnormality. ADDITIONAL FINDINGS: Post surgical changes along the right anterior abdominal wall. SKELETAL SYSTEM: No significant abnormality. IMPRESSION: 1. Post surgical changes from cholecystectomy with small gas and fluid collection in the gallbladder fossa. Surgical drain terminates near by. Biliary stent is in place with pneumobilia suggesting stent patency. L2. Additional chronic/incidental findings detailed above. Signer Name: Jesse Aden MD Signed: 01/14/2022 9:42 AM Workstation Name: [email or web address]
--- NOTE | 2022-01-14 11:54 | Progress Note ---
Assessment and Plan Assessment and plan: #Acute cholecystitis-resolved #bile leakage -s/p open cholecystectomy on 01/09 -CMP labs improved -currently with MACEY drain -GI & General Surgery consulted, assistance appreciated -HIDA scan suggestive of biliary leak; ERCP performed on 01/13 and biliary stent was placed -CT scan negative for bile leak and esophageal perforation; awaiting confirmation for resuming diet #Intractable nausea/vomiting- resolved -likely secondary to above #Hematuria-resolved #history of nephrolithiasis -blood seen in UA and in zimmerman sample, resolved -continue zimmerman while inpatient -Patient will follow with Urologist as outpatient #Hypertension -IV hydralazine as needed #Hyperglycemia -will continue to monitor through labs -patient likely pre-diabetic due to size -no intervention at this time #Morbid obesity #Weight loss counseling #Exercise counseling -BMI 46.6 -Counseled patient on the importance of weight loss, incorporating exercise, and dietary changes (lean meats, fresh fruits and vegetables, and water intake). Patient expresses understanding. -Patient may benefit from bariatric surgical consultation as outpatient -Time: +15 min #Advanced care planning -Disease education conducted, care plan discussed, diagnoses discussed, prognosis discussed, and patient acknowledges understanding with care plan -Time: +30 min History Interval history: No acute events overnight. Patient reports extreme hunger. He was updated about findings seen during endoscopy yesterday by GI. He is currently awaiting general surgery and GI evaluation to determine if patient okay to tolerate p.o. Hospitalist Physical - Physical exam Narrative exam: GENERAL: Obese. In no acute distress. HEENT: Normocephalic. Atraumatic. CHEST/LUNGS: CTAB on room air HEART/CARDIOVASCULAR: RRR. No murmur, rubs or gallops appreciated. ABDOMEN: Obese. MACEY drain without drainage. +BS. ND. SKIN: No rashes noted. NEURO: No focal motor deficit. Follows all commands. MUSCULOSKELETAL: No joint effusion EXTREMITIES: No cyanosis, clubbing. BLE non-pitting edema. PSYCH: Cooperative. - Constitutional Vitals: Temp Pulse Resp BP Pulse Ox 97.6 F 82 17 89/51 98 01/14/22 03:42 01/14/22 10:00 01/14/22 03:42 01/14/22 03:42 01/14/22 10:00 General appearance: Present: no acute distress, well-nourished, obese (Morbidly obese) HEART Score - HEART Score Troponin: Troponin T < 0.010 ng/mL (0.00-0.029) 01/04/22 03:06 Results - Labs CBC & Chem 7: 01/14/22 05:17 01/14/22 05:17 Labs: Laboratory Last Values WBC 7.8 K/mm3 (4.5-11.0) 01/14/22 05:17 RBC 2.97 M/mm3 (3.65-5.03) L 01/14/22 05:17 Hgb 9.2 gm/dl (11.8-15.2) L 01/14/22 05:17 Hct 28.4 % (35.5-45.6) L 01/14/22 05:17 MCV 96 fl (84-94) H 01/14/22 05:17 MCH 31 pg (28-32) 01/14/22 05:17 MCHC 33 % (32-34) 01/14/22 05:17 RDW 13.9 % (13.2-15.2) 01/14/22 05:17 Plt Count 278 K/mm3 (140-440) 01/14/22 05:17 Lymph % (Auto) 8.3 % (13.4-35.0) L 01/10/22 03:40 [place] % (Auto) 6.1 % (0.0-7.3) 01/10/22 03:40 Eos % (Auto) 0.1 % (0.0-4.3) 01/10/22 03:40 Baso % (Auto) 0.1 % (0.0-1.8) 01/10/22 03:40 Lymph # (Auto) 0.8 K/mm3 (1.2-5.4) L 01/10/22 03:40 [place] # (Auto) 0.6 K/mm3 (0.0-0.8) 01/10/22 03:40 Eos # (Auto) 0.0 K/mm3 (0.0-0.4) 01/10/22 03:40 Baso # (Auto) 0.0 K/mm3 (0.0-0.1) 01/10/22 03:40 Add Manual Diff Complete 01/14/22 05:17 Total Counted 100 01/14/22 05:17 Seg Neutrophils % 85.4 % (40.0-70.0) H 01/10/22 03:40 Seg Neuts % (Manual) 73.0 % (40.0-70.0) H 01/14/22 05:17 Band Neutrophils % 0 % 01/14/22 05:17 Lymphocytes % (Manual) 16.0 % (13.4-35.0) 01/14/22 05:17 Reactive Lymphs % (Man) 0 % 01/14/22 05:17 Monocytes % (Manual) 5.0 % (0.0-7.3) 01/14/22 05:17 Eosinophils % (Manual) 3.0 % (0.0-4.3) 01/14/22 05:17 Basophils % (Manual) 0 % (0.0-1.8) 01/14/22 05:17 Metamyelocytes % 3.0 % 01/14/22 05:17 Myelocytes % 0 % 01/14/22 05:17 Promyelocytes % 0 % 01/14/22 05:17 Blast Cells % 0 % 01/14/22 05:17 Nucleated RBC % Not Reportable 01/14/22 05:17 Seg Neutrophils # 7.9 K/mm3 (1.8-7.7) H 01/10/22 03:40 Seg Neutrophils # Man 5.7 K/mm3 (1.8-7.7) 01/14/22 05:17 Band Neutrophils # 0.0 K/mm3 01/14/22 05:17 Lymphocytes # (Manual) 1.2 K/mm3 (1.2-5.4) 01/14/22 05:17 Abs React Lymphs (Man) 0.0 K/mm3 01/14/22 05:17 Monocytes # (Manual) 0.4 K/mm3 (0.0-0.8) 01/14/22 05:17 Eosinophils # (Manual) 0.2 K/mm3 (0.0-0.4) 01/14/22 05:17 Basophils # (Manual) 0.0 K/mm3 (0.0-0.1) 01/14/22 05:17 Metamyelocytes # 0.2 K/mm3 01/14/22 05:17 Myelocytes # 0.0 K/mm3 01/14/22 05:17 Promyelocytes # 0.0 K/mm3 01/14/22 05:17 Blast Cells # 0.0 K/mm3 01/14/22 05:17 WBC Morphology Not Reportable 01/14/22 05:17 Hypersegmented Neuts Not Reportable 01/14/22 05:17 Hyposegmented Neuts Not Reportable 01/14/22 05:17 Hypogranular Neuts Not Reportable 01/14/22 05:17 Smudge Cells Not Reportable 01/14/22 05:17 Toxic Granulation Not Reportable 01/14/22 05:17 Toxic Vacuolation Not Reportable 01/14/22 05:17 Dohle Bodies Not Reportable 01/14/22 05:17 Pelger-Huet Anomaly Not Reportable 01/14/22 05:17 Dawit Rods Not Reportable 01/14/22 05:17 Platelet Estimate Consistent w auto 01/14/22 05:17 Clumped Platelets Not Reportable 01/14/22 05:17 Plt Clumps, EDTA Not Reportable 01/14/22 05:17 Large Platelets Not Reportable 01/14/22 05:17 Giant Platelets Not Reportable 01/14/22 05:17 Platelet Satelliting Not Reportable 01/14/22 05:17 Plt Morphology Comment Not Reportable 01/14/22 05:17 RBC Morphology Not Reportable 01/14/22 05:17 Dimorphic RBCs Not Reportable 01/14/22 05:17 Polychromasia Rare 01/14/22 05:17 Hypochromasia Few 01/14/22 05:17 Poikilocytosis Not Reportable 01/14/22 05:17 Anisocytosis Not Reportable 01/14/22 05:17 Microcytosis Not Reportable 01/14/22 05:17 Macrocytosis Not Reportable 01/14/22 05:17 Spherocytes Not Reportable 01/14/22 05:17 Pappenheimer Bodies Not Reportable 01/14/22 05:17 Sickle Cells Not Reportable 01/14/22 05:17 Target Cells Not Reportable 01/14/22 05:17 Tear Drop Cells Not Reportable 01/14/22 05:17 Ovalocytes Not Reportable 01/14/22 05:17 Helmet Cells Not Reportable 01/14/22 05:17 Lal-[place] Bodies Not Reportable 01/14/22 05:17 [place] Rings Not Reportable 01/14/22 05:17 Noble Cells Not Reportable 01/14/22 05:17 Bite Cells Not Reportable 01/14/22 05:17 Crenated Cell Not Reportable 01/14/22 05:17 Elliptocytes Not Reportable 01/14/22 05:17 Acanthocytes (Spur) Not Reportable 01/14/22 05:17 Rouleaux Not Reportable 01/14/22 05:17 Hemoglobin C Crystals Not Reportable 01/14/22 05:17 Schistocytes Not Reportable 01/14/22 05:17 Malaria parasites Not Reportable 01/14/22 05:17 Aníbal Bodies Not Reportable 01/14/22 05:17 Hem Pathologist Commnt No 01/14/22 05:17 PT 14.9 Sec. (12.2-14.9) 01/09/22 04:59 INR 1.05 (0.87-1.13) 01/09/22 04:59 Sodium 142 mmol/L (137-145) D 01/14/22 05:17 Potassium 4.4 mmol/L (3.6-5.0) 01/14/22 05:17 Chloride 107.2 mmol/L (98-107) H 01/14/22 05:17 Carbon Dioxide 26 mmol/L (22-30) 01/14/22 05:17 Anion Gap 13 mmol/L 01/14/22 05:17 BUN 16 mg/dL (9-20) 01/14/22 05:17 Creatinine 0.9 mg/dL (0.8-1.3) 01/14/22 05:17 Estimated GFR > 60 ml/min 01/14/22 05:17 BUN/Creatinine Ratio 18 % 01/14/22 05:17 Glucose 85 mg/dL (75-100) 01/14/22 05:17 POC Glucose 110 mg/dL (70-105) H 01/12/22 21:40 Calcium 7.3 mg/dL (8.4-10.2) L 01/14/22 05:17 Total Bilirubin 1.20 mg/dL (0.1-1.2) 01/14/22 05:17 AST 43 units/L (5-40) H 01/14/22 05:17 ALT 42 units/L (7-56) 01/14/22 05:17 Alkaline Phosphatase 166 units/L (35-129) H 01/14/22 05:17 Troponin T < 0.010 ng/mL (0.00-0.029) 01/04/22 03:06 Total Protein 4.8 g/dL (6.3-8.2) L 01/14/22 05:17 Albumin 2.1 g/dL (3.9-5) L 01/14/22 05:17 Albumin/Globulin Ratio 0.8 % 01/14/22 05:17 Lipase 71 units/L (13-60) H 01/09/22 19:54 Urine Color Dark yellow (Yellow) 01/07/22 14:25 Urine Turbidity Clear (Clear) 01/07/22 14:25 Urine pH 5.0 (5.0-7.0) 01/07/22 14:25 Ur Specific [place] 1.015 (1.003-1.030) 01/07/22 14:25 Urine Protein 100 mg/dl mg/dL (Negative) 01/07/22 14:25 Urine Glucose (UA) Negative mg/dL (Negative) 01/07/22 14:25 Urine Ketones 160 mg/dL (Negative) 01/07/22 14:25 Urine Blood 3+ (Negative) 01/07/22 14:25 Urine Nitrite Negative (Negative) 01/07/22 14:25 Ur Reducing Substances Not Reportable 01/07/22 14:25 Urine Bilirubin Negative (Negative) 01/07/22 14:25 Urine Ictotest Not Reportable 01/07/22 14:25 Urine Urobilinogen < 2.0 mg/dL (<2.0) 01/07/22 14:25 Ur Leukocyte Esterase Negative (Negative) 01/07/22 14:25 Urine WBC (Auto) 6.0 /HPF (0.0-6.0) 01/07/22 14:25 Urine RBC (Auto) 6.0 /HPF (0.0-6.0) 01/07/22 14:25 U Epithel Cells (Auto) 1.0 /HPF (0-13.0) 01/04/22 Unknown Urine Bacteria (Auto) 1+ /HPF (Negative) 01/04/22 Unknown Hyaline Casts 4 /LPF 01/04/22 Unknown Urine Mucus Few /HPF 01/07/22 14:25 SARS-CoV-2 (PCR) Negative (Negative) 01/09/22 12:00 Blood Type O POSITIVE 01/09/22 15:50 Antibody Screen Negative 01/09/22 15:50 Crossmatch See Detail 01/09/22 15:50 Zimmerman/IV: Voiding Method Indwelling Catheter Active Medications - Current Medications Current Medications: Generic Name Dose Route Start Last Admin Trade Name Freq PRN Reason Stop Dose Admin Acetaminophen 650 mg 01/04/22 05:15 01/06/22 21:35 Acetaminophen 325 Mg Tab PO 650 mg Q4H PRN Administration Pain MILD(1-3)/Fever >100.5/HIGUERA Docusate Sodium 100 mg 01/08/22 11:00 01/14/22 09:26 Docusate Sodium 100 Mg Cap PO 100 mg BID ZEB Administration Enoxaparin Sodium 40 mg 01/04/22 22:00 01/13/22 21:39 Enoxaparin 40 Mg/0.4 Ml Inj SUB-Q 40 mg QDAY@2200 ZEB Administration Protocol Hydralazine HCl 10 mg 01/04/22 10:00 Hydralazine 20 Mg/1 Ml Inj IV Q4HR PRN Hypertension Piperacillin Sod/Tazobactam Sod 4.5 gm in 100 mls @ 200 mls/hr 01/11/22 08:00 01/14/22 09:26 Zosyn/Ns 4.5gm/100ml IV 200 mls/hr Q8H ZEB Administration Protocol Sodium Chloride 1,000 mls @ 100 mls/hr 01/13/22 17:15 01/14/22 09:27 Nacl 0.9% 1000 Ml IV 01/15/22 17:14 100 mls/hr DIRECT ZEB Administration Metoclopramide HCl 10 mg 01/04/22 05:15 01/04/22 05:36 Metoclopramide 10 Mg/2 Ml Inj IV 10 mg Q6H PRN Administration Nausea And Vomiting Morphine Sulfate 2 mg 01/04/22 10:00 01/12/22 07:10 Morphine 2 Mg/1 Ml Inj IV 2 mg Q4H PRN Administration Pain, Moderate (4-6) Ondansetron HCl 4 mg 01/04/22 10:00 01/04/22 20:57 Ondansetron 4 Mg/2 Ml Inj IV 4 mg Q4H PRN Administration Nausea And Vomiting Pantoprazole Sodium 40 mg 01/13/22 22:00 01/14/22 09:26 Pantoprazole 40 Mg Inj IV 40 mg BID ZEB Administration Sodium Chloride 10 ml 01/04/22 10:00 01/14/22 09:26 Sodium Chloride 0.9% 10 Ml Flush Syringe IV 10 ml BID ZEB Administration Nutrition/Malnutrition Assess - Dietary Evaluation Nutrition/Malnutrition Findings: Nutrition Notes Start: 01/12/22 17:44 Freq: Status: Active Protocol: Document 01/12/22 17:44 DENIS (Rec: 01/12/22 18:00 DENIS [id number]) Nutrition Notes Need for Assessment generated from: LOS Initial or Follow up Assessment Current Diagnosis Hypertension Other Pertinent Diagnosis s/p Cholecystitis/ Cholelithiasis, Hyperglycemia. Current Diet NPO (since 01/12 00:01). Labs/Tests 01/12: BUN 29, Glu 104, Ca 7.8 . Pertinent Medications 01/12: Nutritionally unremarkable. 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 Pt currently on NPO due to preparation for HIDA scann, according to Progress notes. Pt's PO intake of meals has been Good (100%) and well tolerated, according to ADL notes. Pt is on Room Air, O2 saturation @ 96%, according to Physical Assessment History notes. Pt presents Bilateral-Foot Pitting Edema 2+, according to Physical Assessment History notes. Procedure on 01/09: Laparoscopic Cholecystectomy conversion to open cholangiogram, well tolerated, according to Operative Report notes. Pt shows a abdominal MACEY drain as sign of concern for skin risk at the time, according to Physical Assessment History notes. Percent of energy/protein needs met: Pt currently on NPO. When pertinent, start Prescribed Cardiac/Consistent Carbohydrates Diet provides for energy/protein needs (1, 977 Kcal/86 g) during LOS. Burn Absent Trauma Absent GI Symptoms None Food Allergy No Skin Integrity/Comment Abdominal MACEY Drain. 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 As Evidenced by Signs and Symptoms BMI: 49.6 Kg/m2. Is patient on ventilator? No Is Patient Ambulatory and/or Out of Bed Yes REE-(Jenkins-St. Jeor-ambulatory/OOB) [ 3070.925 [id number]] Kcal/Kg value to use for calculation 13 Approximate Energy Requirements Using 2042 kcal/Kg Calculation Used for Recommendations Kcal/kg Additional Notes Protein: <2.5 g/Kg IBW; <188 g /day. Fluids: 1 ml/Kcal, or as per MD. Nutrition Intervention Change Diet Order: When pertinent, start Cardiac/ Consistent Carbohydrates Diet, continue as tolerated. Goal #1 Adjust the dietary intervention to better serve Pt's needs and clinical conditions during LOS. Follow-Up By: 01/19/22 Additional Comments Continue monitoring food tolerance, %PO intake of meals , and BM.
--- NOTE | 2022-01-14 13:21 | Progress Note ---
Assessment and Plan Pt with acute calculous cholecystitis. No pancreatitis no jaundice. Pain already with signs of improvement. Will advance to clear liq diet at thsi time. Cont iv ab for leukocytosis. Patient is hungry today. MACEY output is now being monitored directly to suction. Patient status post ERCP and upper endoscopy. There are some abnormality that is poorly understood at the GE junction. There is also duodenal ulcer. There was blood in the stomach. Sphincterotomy completed stent placed. MACEY output appears to have decreased. Patient feels better. He is very hungry at this time. We will advance to regular diet. Also continue observation on MACEY output. Possibly remove MACEY in the morning. Subjective Date of service: 01/14/22 Patient Reports: Positive: no new complaints Narrative: Patient status post ERCP and upper endoscopy. There are some abnormality that is poorly understood at the GE junction. There is also duodenal ulcer. There was blood in the stomach. Sphincterotomy completed stent placed. MACEY output appears to have decreased. Patient feels better. He is very hungry at this time. We will advance to regular diet. Also continue observation on MACEY output. Possibly remove MACEY in the morning. Objective Vital Signs - 12hr 01/14/22 01/14/22 03:42 10:00 Temperature 97.6 F Pulse Rate 81 82 Respiratory 17 Rate Blood Pressure 89/51 O2 Sat by Pulse 95 98 Oximetry - Labs 01/14/22 05:17 01/14/22 05:17 Diabetes panel 01/14/22 Range/Units 05:17 Sodium 142 D (137-145) mmol/L Potassium 4.4 (3.6-5.0) mmol/L Chloride 107.2 H (98-107) mmol/L Carbon Dioxide 26 (22-30) mmol/L BUN 16 (9-20) mg/dL Creatinine 0.9 (0.8-1.3) mg/dL Glucose 85 (75-100) mg/dL Calcium 7.3 L (8.4-10.2) mg/dL AST 43 H (5-40) units/L ALT 42 (7-56) units/L Alkaline Phosphatase 166 H (35-129) units/L Total Protein 4.8 L (6.3-8.2) g/dL Albumin 2.1 L (3.9-5) g/dL Calcium panel 01/14/22 Range/Units 05:17 Calcium 7.3 L (8.4-10.2) mg/dL Albumin 2.1 L (3.9-5) g/dL Pituitary panel 01/14/22 Range/Units 05:17 Sodium 142 D (137-145) mmol/L Potassium 4.4 (3.6-5.0) mmol/L Chloride 107.2 H (98-107) mmol/L Carbon Dioxide 26 (22-30) mmol/L BUN 16 (9-20) mg/dL Creatinine 0.9 (0.8-1.3) mg/dL Glucose 85 (75-100) mg/dL Calcium 7.3 L (8.4-10.2) mg/dL Adrenal panel 01/14/22 Range/Units 05:17 Sodium 142 D (137-145) mmol/L Potassium 4.4 (3.6-5.0) mmol/L Chloride 107.2 H (98-107) mmol/L Carbon Dioxide 26 (22-30) mmol/L BUN 16 (9-20) mg/dL Creatinine 0.9 (0.8-1.3) mg/dL Glucose 85 (75-100) mg/dL Calcium 7.3 L (8.4-10.2) mg/dL Total Bilirubin 1.20 (0.1-1.2) mg/dL AST 43 H (5-40) units/L ALT 42 (7-56) units/L Alkaline Phosphatase 166 H (35-129) units/L Total Protein 4.8 L (6.3-8.2) g/dL Albumin 2.1 L (3.9-5) g/dL
--- NOTE | 2022-01-14 15:45 | Event Note ---
Date: 01/14/[address] scan[address] Biliary stent in place. No signs of perforation noted. LFTs trending down. Ok for trial of clear liquids.
--- NOTE | 2022-01-14 19:08 | Gastroenterology Progress Note ---
Assessment and Plan # Bile leak - s/p open CCY - s/p ERPC on 01/13 showing bile leak treated with biliary stent placement. Status post sphincterotomy, EGD portion showed large amount of blood in the stomach, 1 cm duodenal bulb ulcer, severe irregular mucosa at the GE junction with blood present. -CT abdomen pelvis showed biliary stent in place with pneumobilia but no signs mention of perforation. -Patient clinically improving. -LFTs trending down and MACEY drain decreasing in amount. rec -Continue with PPI IV twice daily, okay for clear liquid diet. -Continue to monitor H&H. -Continue to monitor LFTs. -Monitor MACEY output -Recommend repeat EGD in 1 to 2 weeks - Patient Problems (1) Abdominal pain, acute, epigastric Current Visit: Yes Status: Acute (2) Bile leak, postoperative Current Visit: Yes Status: Acute Subjective Date of service: 01/14/22 Principal diagnosis: Bile leak Interval history: Patient feels better today. Tolerating clear liquids. No nausea or vomiting. No bowel movements overnight. Objective - Constitutional Vitals: Temp Pulse Resp BP Pulse Ox 97.6 F 82 17 89/51 98 01/14/22 03:42 01/14/22 10:00 01/14/22 03:42 01/14/22 03:42 01/14/22 10:00 General appearance: no acute distress - EENT Eyes: EOM intact ENT: hearing intact - Respiratory Respiratory effort: normal - Cardiovascular Rhythm: regular Heart Sounds: Present: S1 & S2 - Gastrointestinal General gastrointestinal: Present: soft, non-tender, non-distended - Integumentary Integumentary: Present: clear, warm - Neurologic Neurological: alert and oriented x3 - Psychiatric Psychiatric: appropriate mood/affect - Labs CBC & Chem 7: 01/14/22 05:17 01/14/22 05:17 Labs: Laboratory Results - last 24 hr 01/14/22 01/14/22 05:17 05:17 WBC 7.8 RBC 2.97 L Hgb 9.2 L Hct 28.4 L MCV 96 H MCH 31 MCHC 33 RDW 13.9 Plt Count 278 Add Manual Diff Complete Total Counted 100 Seg Neuts % (Manual) 73.0 H Band Neutrophils % 0 Lymphocytes % (Manual) 16.0 Reactive Lymphs % (Man) 0 Monocytes % (Manual) 5.0 Eosinophils % (Manual) 3.0 Basophils % (Manual) 0 Metamyelocytes % 3.0 Myelocytes % 0 Promyelocytes % 0 Blast Cells % 0 Nucleated RBC % Not Reportable Seg Neutrophils # Man 5.7 Band Neutrophils # 0.0 Lymphocytes # (Manual) 1.2 Abs React Lymphs (Man) 0.0 Monocytes # (Manual) 0.4 Eosinophils # (Manual) 0.2 Basophils # (Manual) 0.0 Metamyelocytes # 0.2 Myelocytes # 0.0 Promyelocytes # 0.0 Blast Cells # 0.0 WBC Morphology Not Reportable Hypersegmented Neuts Not Reportable Hyposegmented Neuts Not Reportable Hypogranular Neuts Not Reportable Smudge Cells Not Reportable Toxic Granulation Not Reportable Toxic Vacuolation Not Reportable Dohle Bodies Not Reportable Pelger-Huet Anomaly Not Reportable Dawit Rods Not Reportable Platelet Estimate Consistent w auto Clumped Platelets Not Reportable Plt Clumps, EDTA Not Reportable Large Platelets Not Reportable Giant Platelets Not Reportable Platelet Satelliting Not Reportable Plt Morphology Comment Not Reportable RBC Morphology Not Reportable Dimorphic RBCs Not Reportable Polychromasia Rare Hypochromasia Few Poikilocytosis Not Reportable Anisocytosis Not Reportable Microcytosis Not Reportable Macrocytosis Not Reportable Spherocytes Not Reportable Pappenheimer Bodies Not Reportable Sickle Cells Not Reportable Target Cells Not Reportable Tear Drop Cells Not Reportable Ovalocytes Not Reportable Helmet Cells Not Reportable Lal-[place] Bodies Not Reportable [place] Rings Not Reportable Noble Cells Not Reportable Bite Cells Not Reportable Crenated Cell Not Reportable Elliptocytes Not Reportable Acanthocytes (Spur) Not Reportable Rouleaux Not Reportable Hemoglobin C Crystals Not Reportable Schistocytes Not Reportable Malaria parasites Not Reportable Aníbal Bodies Not Reportable Hem Pathologist Commnt No Sodium 142 D Potassium 4.4 Chloride 107.2 H Carbon Dioxide 26 Anion Gap 13 BUN 16 Creatinine 0.9 Estimated GFR > 60 BUN/Creatinine Ratio 18 Glucose 85 Calcium 7.3 L Total Bilirubin 1.20 AST 43 H ALT 42 Alkaline Phosphatase 166 H Total Protein 4.8 L Albumin 2.1 L Albumin/Globulin Ratio 0.8 - Imaging CT scan: report reviewed
[2022-01-14] MEDS: ENOXAPARIN 40 MG/0.4 ML INJ SUB-Q SCH (22:29)
[2022-01-15] MEDS: PIPERACIL/TAZOBACTA 4.5/NS 100 4.5 GM/100 ML VIAL IV SCH ×2 (09:00→18:07)
[2022-01-15] MEDS: PANTOPRAZOLE 40 MG INJ IV SCH ×2 (10:07→21:42)
[2022-01-15] MEDS: DOCUSATE SODIUM 100 MG CAP PO SCH ×2 (10:07→21:41)
--- NOTE | 2022-01-15 11:58 | Progress Note ---
Assessment and Plan Assessment and plan: #Acute cholecystitis-resolved #bile leakage -s/p open cholecystectomy on 01/09 -CMP labs improved -currently with MACEY drain; output significantly decreased -GI & General Surgery consulted, assistance appreciated -HIDA scan suggestive of biliary leak; ERCP performed on 01/13 and biliary stent was placed -CT scan negative for bile leak and esophageal perforation; patient tolerating diet #Intractable nausea/vomiting- resolved -likely secondary to above #Hematuria-resolved #history of nephrolithiasis -blood seen in UA and in zimmerman sample, resolved -continue zimmerman while inpatient -Patient will follow with Urologist as outpatient #Hypertension -IV hydralazine as needed #Hyperglycemia -will continue to monitor through labs -patient likely pre-diabetic due to size -no intervention at this time #Morbid obesity #Weight loss counseling #Exercise counseling -BMI 46.6 -Counseled patient on the importance of weight loss, incorporating exercise, and dietary changes (lean meats, fresh fruits and vegetables, and water intake). Patient expresses understanding. -Patient may benefit from bariatric surgical consultation as outpatient -Time: +15 min #Advanced care planning -Disease education conducted, care plan discussed, diagnoses discussed, prognosis discussed, and patient acknowledges understanding with care plan -Time: +30 min History Interval history: No acute events overnight. Patient reports feeling better since being able to eat. He reports no pain and has not requested any pain medications in the last 10+hrs. He has no complaints at this time. Hospitalist Physical - Physical exam Narrative exam: GENERAL: Obese. In no acute distress. HEENT: Normocephalic. Atraumatic. CHEST/LUNGS: CTAB on room air HEART/CARDIOVASCULAR: RRR. No murmur, rubs or gallops appreciated. ABDOMEN: Obese. MACEY drain without drainage. +BS. ND. SKIN: No rashes noted. NEURO: No focal motor deficit. Follows all commands. MUSCULOSKELETAL: No joint effusion EXTREMITIES: No cyanosis, clubbing. BLE non-pitting edema. PSYCH: Cooperative. - Constitutional Vitals: Temp Pulse Resp BP Pulse Ox 97.6 F 75 18 109/68 97 01/15/22 07:46 01/15/22 08:36 01/15/22 07:46 01/15/22 07:46 01/15/22 07:46 General appearance: Present: no acute distress, well-nourished, obese (Morbidly obese) HEART Score - HEART Score Troponin: Troponin T < 0.010 ng/mL (0.00-0.029) 01/04/22 03:06 Results - Labs CBC & Chem 7: 01/14/22 05:17 01/14/22 05:17 Labs: Laboratory Last Values WBC 7.8 K/mm3 (4.5-11.0) 01/14/22 05:17 RBC 2.97 M/mm3 (3.65-5.03) L 01/14/22 05:17 Hgb 9.2 gm/dl (11.8-15.2) L 01/14/22 05:17 Hct 28.4 % (35.5-45.6) L 01/14/22 05:17 MCV 96 fl (84-94) H 01/14/22 05:17 MCH 31 pg (28-32) 01/14/22 05:17 MCHC 33 % (32-34) 01/14/22 05:17 RDW 13.9 % (13.2-15.2) 01/14/22 05:17 Plt Count 278 K/mm3 (140-440) 01/14/22 05:17 Lymph % (Auto) 8.3 % (13.4-35.0) L 01/10/22 03:40 [place] % (Auto) 6.1 % (0.0-7.3) 01/10/22 03:40 Eos % (Auto) 0.1 % (0.0-4.3) 01/10/22 03:40 Baso % (Auto) 0.1 % (0.0-1.8) 01/10/22 03:40 Lymph # (Auto) 0.8 K/mm3 (1.2-5.4) L 01/10/22 03:40 [place] # (Auto) 0.6 K/mm3 (0.0-0.8) 01/10/22 03:40 Eos # (Auto) 0.0 K/mm3 (0.0-0.4) 01/10/22 03:40 Baso # (Auto) 0.0 K/mm3 (0.0-0.1) 01/10/22 03:40 Add Manual Diff Complete 01/14/22 05:17 Total Counted 100 01/14/22 05:17 Seg Neutrophils % 85.4 % (40.0-70.0) H 01/10/22 03:40 Seg Neuts % (Manual) 73.0 % (40.0-70.0) H 01/14/22 05:17 Band Neutrophils % 0 % 01/14/22 05:17 Lymphocytes % (Manual) 16.0 % (13.4-35.0) 01/14/22 05:17 Reactive Lymphs % (Man) 0 % 01/14/22 05:17 Monocytes % (Manual) 5.0 % (0.0-7.3) 01/14/22 05:17 Eosinophils % (Manual) 3.0 % (0.0-4.3) 01/14/22 05:17 Basophils % (Manual) 0 % (0.0-1.8) 01/14/22 05:17 Metamyelocytes % 3.0 % 01/14/22 05:17 Myelocytes % 0 % 01/14/22 05:17 Promyelocytes % 0 % 01/14/22 05:17 Blast Cells % 0 % 01/14/22 05:17 Nucleated RBC % Not Reportable 01/14/22 05:17 Seg Neutrophils # 7.9 K/mm3 (1.8-7.7) H 01/10/22 03:40 Seg Neutrophils # Man 5.7 K/mm3 (1.8-7.7) 01/14/22 05:17 Band Neutrophils # 0.0 K/mm3 01/14/22 05:17 Lymphocytes # (Manual) 1.2 K/mm3 (1.2-5.4) 01/14/22 05:17 Abs React Lymphs (Man) 0.0 K/mm3 01/14/22 05:17 Monocytes # (Manual) 0.4 K/mm3 (0.0-0.8) 01/14/22 05:17 Eosinophils # (Manual) 0.2 K/mm3 (0.0-0.4) 01/14/22 05:17 Basophils # (Manual) 0.0 K/mm3 (0.0-0.1) 01/14/22 05:17 Metamyelocytes # 0.2 K/mm3 01/14/22 05:17 Myelocytes # 0.0 K/mm3 01/14/22 05:17 Promyelocytes # 0.0 K/mm3 01/14/22 05:17 Blast Cells # 0.0 K/mm3 01/14/22 05:17 WBC Morphology Not Reportable 01/14/22 05:17 Hypersegmented Neuts Not Reportable 01/14/22 05:17 Hyposegmented Neuts Not Reportable 01/14/22 05:17 Hypogranular Neuts Not Reportable 01/14/22 05:17 Smudge Cells Not Reportable 01/14/22 05:17 Toxic Granulation Not Reportable 01/14/22 05:17 Toxic Vacuolation Not Reportable 01/14/22 05:17 Dohle Bodies Not Reportable 01/14/22 05:17 Pelger-Huet Anomaly Not Reportable 01/14/22 05:17 Dawit Rods Not Reportable 01/14/22 05:17 Platelet Estimate Consistent w auto 01/14/22 05:17 Clumped Platelets Not Reportable 01/14/22 05:17 Plt Clumps, EDTA Not Reportable 01/14/22 05:17 Large Platelets Not Reportable 01/14/22 05:17 Giant Platelets Not Reportable 01/14/22 05:17 Platelet Satelliting Not Reportable 01/14/22 05:17 Plt Morphology Comment Not Reportable 01/14/22 05:17 RBC Morphology Not Reportable 01/14/22 05:17 Dimorphic RBCs Not Reportable 01/14/22 05:17 Polychromasia Rare 01/14/22 05:17 Hypochromasia Few 01/14/22 05:17 Poikilocytosis Not Reportable 01/14/22 05:17 Anisocytosis Not Reportable 01/14/22 05:17 Microcytosis Not Reportable 01/14/22 05:17 Macrocytosis Not Reportable 01/14/22 05:17 Spherocytes Not Reportable 01/14/22 05:17 Pappenheimer Bodies Not Reportable 01/14/22 05:17 Sickle Cells Not Reportable 01/14/22 05:17 Target Cells Not Reportable 01/14/22 05:17 Tear Drop Cells Not Reportable 01/14/22 05:17 Ovalocytes Not Reportable 01/14/22 05:17 Helmet Cells Not Reportable 01/14/22 05:17 [place] Bodies Not Reportable 01/14/22 05:17 Glennie Rings Not Reportable 01/14/22 05:17 [place] Cells Not Reportable 01/14/22 05:17 Bite Cells Not Reportable 01/14/22 05:17 Crenated Cell Not Reportable 01/14/22 05:17 Elliptocytes Not Reportable 01/14/22 05:17 Acanthocytes (Spur) Not Reportable 01/14/22 05:17 Rouleaux Not Reportable 01/14/22 05:17 Hemoglobin C Crystals Not Reportable 01/14/22 05:17 Schistocytes Not Reportable 01/14/22 05:17 Malaria parasites Not Reportable 01/14/22 05:17 Aníbal Bodies Not Reportable 01/14/22 05:17 Hem Pathologist Commnt No 01/14/22 05:17 PT 14.9 Sec. (12.2-14.9) 01/09/22 04:59 INR 1.05 (0.87-1.13) 01/09/22 04:59 Sodium 142 mmol/L (137-145) D 01/14/22 05:17 Potassium 4.4 mmol/L (3.6-5.0) 01/14/22 05:17 Chloride 107.2 mmol/L (98-107) H 01/14/22 05:17 Carbon Dioxide 26 mmol/L (22-30) 01/14/22 05:17 Anion Gap 13 mmol/L 01/14/22 05:17 BUN 16 mg/dL (9-20) 01/14/22 05:17 Creatinine 0.9 mg/dL (0.8-1.3) 01/14/22 05:17 Estimated GFR > 60 ml/min 01/14/22 05:17 BUN/Creatinine Ratio 18 % 01/14/22 05:17 Glucose 85 mg/dL (75-100) 01/14/22 05:17 POC Glucose 110 mg/dL (70-105) H 01/12/22 21:40 Calcium 7.3 mg/dL (8.4-10.2) L 01/14/22 05:17 Total Bilirubin 1.20 mg/dL (0.1-1.2) 01/14/22 05:17 AST 43 units/L (5-40) H 01/14/22 05:17 ALT 42 units/L (7-56) 01/14/22 05:17 Alkaline Phosphatase 166 units/L (35-129) H 01/14/22 05:17 Troponin T < 0.010 ng/mL (0.00-0.029) 01/04/22 03:06 Total Protein 4.8 g/dL (6.3-8.2) L 01/14/22 05:17 Albumin 2.1 g/dL (3.9-5) L 01/14/22 05:17 Albumin/Globulin Ratio 0.8 % 01/14/22 05:17 Lipase 71 units/L (13-60) H 01/09/22 19:54 Urine Color Dark yellow (Yellow) 01/07/22 14:25 Urine Turbidity Clear (Clear) 01/07/22 14: Urine pH 5.0 (5.0-7.0) 01/07/22 14:25 Ur Specific [place] 1.015 (1.003-1.030) 01/07/22 14:25 Urine Protein 100 mg/dl mg/dL (Negative) 01/07/22 14:25 Urine Glucose (UA) Negative mg/dL (Negative) 01/07/22 14:25 Urine Ketones 160 mg/dL (Negative) 01/07/22 14:25 Urine Blood 3+ (Negative) 01/07/22 14:25 Urine Nitrite Negative (Negative) 01/07/22 14:25 Ur Reducing Substances Not Reportable 01/07/22 14:25 Urine Bilirubin Negative (Negative) 01/07/22 14:25 Urine Ictotest Not Reportable 01/07/22 14:25 Urine Urobilinogen < 2.0 mg/dL (<2.0) 01/07/22 14:25 Ur Leukocyte Esterase Negative (Negative) 01/07/22 14:25 Urine WBC (Auto) 6.0 /HPF (0.0-6.0) 01/07/22 14:25 Urine RBC (Auto) 6.0 /HPF (0.0-6.0) 01/07/22 14:25 U Epithel Cells (Auto) 1.0 /HPF (0-13.0) 01/04/22 Unknown Urine Bacteria (Auto) 1+ /HPF (Negative) 01/04/22 Unknown Hyaline Casts 4 /LPF 01/04/22 Unknown Urine Mucus Few /HPF 01/07/22 14:25 SARS-CoV-2 (PCR) Negative (Negative) 01/09/22 12:00 Blood Type O POSITIVE 01/09/22 15:50 Antibody Screen Negative 01/09/22 15:50 Crossmatch See Detail 01/09/22 15:50 Zimmerman/IV: Voiding Method Indwelling Catheter Active Medications - Current Medications Current Medications: Generic Name Dose Route Start Last Admin Trade Name Freq PRN Reason Stop Dose Admin Acetaminophen 650 mg 01/04/22 05:15 01/06/22 21:35 Acetaminophen 325 Mg Tab PO 650 mg Q4H PRN Administration Pain MILD(1-3)/Fever >100.5/HIGUERA Docusate Sodium 100 mg 01/08/22 11:00 01/15/22 10:07 Docusate Sodium 100 Mg Cap PO 100 mg BID ZEB Administration Enoxaparin Sodium 40 mg 01/04/22 22:00 01/14/22 22:29 Enoxaparin 40 Mg/0.4 Ml Inj SUB-Q 40 mg QDAY@2200 ZEB Administration Protocol Hydralazine HCl 10 mg 01/04/22 10:00 Hydralazine 20 Mg/1 Ml Inj IV Q4HR PRN Hypertension Piperacillin Sod/Tazobactam Sod 4.5 gm in 100 mls @ 200 mls/hr 01/11/22 08:00 01/15/22 09:00 Zosyn/Ns 4.5gm/100ml IV 200 mls/hr Q8H ZEB Administration Protocol Sodium Chloride 1,000 mls @ 100 mls/hr 01/13/22 17:15 01/14/22 20:55 Nacl 0.9% 1000 Ml IV 01/15/22 17:14 100 mls/hr DIRECT ZEB Administration Metoclopramide HCl 10 mg 01/04/22 05:15 01/04/22 05:36 Metoclopramide 10 Mg/2 Ml Inj IV 10 mg Q6H PRN Administration Nausea And Vomiting Morphine Sulfate 2 mg 01/04/22 10:00 01/12/22 07:10 Morphine 2 Mg/1 Ml Inj IV 2 mg Q4H PRN Administration Pain, Moderate (4-6) Ondansetron HCl 4 mg 01/04/22 10:00 01/04/22 20:57 Ondansetron 4 Mg/2 Ml Inj IV 4 mg Q4H PRN Administration Nausea And Vomiting Pantoprazole Sodium 40 mg 01/13/22 22:00 01/15/22 10:07 Pantoprazole 40 Mg Inj IV 40 mg BID ZEB Administration Sodium Chloride 10 ml 01/04/22 10:00 01/15/22 10:07 Sodium Chloride 0.9% 10 Ml Flush Syringe IV 10 ml BID ZEB Administration Nutrition/Malnutrition Assess - Dietary Evaluation Nutrition/Malnutrition Findings: Nutrition Notes Start: 01/12/22 17:44 Freq: Status: Active Protocol: Document 01/12/22 17:44 DENIS (Rec: 01/12/22 18:00 DENIS [id number]) Nutrition Notes Need for Assessment generated from: LOS Initial or Follow up Assessment Current Diagnosis Hypertension Other Pertinent Diagnosis s/p Cholecystitis/ Cholelithiasis, Hyperglycemia. Current Diet NPO (since 01/12 00:01). Labs/Tests 01/12: BUN 29, Glu 104, Ca 7.8 . Pertinent Medications 01/12: Nutritionally unremarkable. 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 Pt currently on NPO due to preparation for HIDA scann, according to Progress notes. Pt's PO intake of meals has been Good (100%) and well tolerated, according to ADL notes. Pt is on Room Air, O2 saturation @ 96%, according to Physical Assessment History notes. Pt presents Bilateral-Foot Pitting Edema 2+, according to Physical Assessment History notes. Procedure on 01/09: Laparoscopic Cholecystectomy conversion to open cholangiogram, well tolerated, according to Operative Report notes. Pt shows a abdominal MACEY drain as sign of concern for skin risk at the time, according to Physical Assessment History notes. Percent of energy/protein needs met: Pt currently on NPO. When pertinent, start Prescribed Cardiac/Consistent Carbohydrates Diet provides for energy/protein needs (1, 977 Kcal/86 g) during LOS. Burn Absent Trauma Absent GI Symptoms None Food Allergy No Skin Integrity/Comment Abdominal MACEY Drain. Current % PO Good (75-100%) Minimum of two criteria No Fluid Accumulation Mild (non-severe) Reduced Manager Telemarketing Strength N/A (non-severe) Protein-Calorie Malnutrition N\A #1 Nutrition Diagnosis Overweight/obesity Etiology Possibly associated to lifestyle. As Evidenced by Signs and Symptoms BMI: 49.6 Kg/m2. Is patient on ventilator? No Is Patient Ambulatory and/or Out of Bed Yes [facility] [ 3070.925 [id number]] Kcal/Kg value to use for calculation 13 Approximate Energy Requirements Using 2 kcal/Kg Calculation Used for Recommendations Kcal/kg Additional Notes Protein: <2.5 g/Kg IBW; <188 g /day. Fluids: 1 ml/Kcal, or as per MD. Nutrition Intervention Change Diet Order: When pertinent, start Cardiac/ Consistent Carbohydrates Diet, continue as tolerated. Goal #1 Adjust the dietary intervention to better serve Pt's needs and clinical conditions during LOS. Follow-Up By: 01/19/22 Additional Comments Continue monitoring food tolerance, %PO intake of meals , and BM.
--- NOTE | 2022-01-15 13:11 | Progress Note ---
Assessment and Plan Pt with acute calculous cholecystitis. No pancreatitis no jaundice. Pain already with signs of improvement. Will advance to clear liq diet at thsi time. Cont iv ab for leukocytosis. Patient is hungry today. MACEY output is now being monitored directly to suction. Patient status post ERCP and upper endoscopy. There are some abnormality that is poorly understood at the GE junction. There is also duodenal ulcer. There was blood in the stomach. Sphincterotomy completed stent placed. MACEY output appears to have decreased. Patient feels better. He is opal a soft diet. Also continue observation on MACEY output. Possibly remove MACEY in the morning. Subjective Date of service: 01/15/22 Patient Reports: Positive: no new complaints, feels better, tolerating a regular diet Objective Vital Signs - 12hr 01/15/22 01/15/22 01/15/22 03:17 07:46 08:36 Temperature 97.9 F 97.6 F Pulse Rate 89 85 75 Respiratory 18 18 Rate Blood Pressure 109/67 109/68 O2 Sat by Pulse 96 97 Oximetry - Labs 01/14/22 05:17 01/14/22 05:17
[2022-01-15 14:08] LABS: Hematocrit 28.7 % (35.5-45.6); Hemoglobin 9.5 gm/dl (11.8-15.2); Mean Corpuscular HGB Conc 33 % (32-34); Mean Corpuscular Volume 95 fl (84-94); Platelet Count 329 K/mm3 (140-440); Red Blood Count 3.02 M/mm3 (3.65-5.03); Red Cell Distribution Width 13.8 % (13.2-15.2)
[2022-01-15 14:23] LABS: Alanine Aminotransferase 40 units/L (7-56); Albumin 2.3 g/dL (3.9-5); BUN/Creatinine Ratio 11; Blood Urea Nitrogen 11 mg/dL (9-20); Calcium 7.6 mg/dL (8.4-10.2); Hemolysis Index 1
--- NOTE | 2022-01-15 16:50 | Gastroenterology Progress Note ---
Assessment and Plan # Bile leak - s/p open CCY - s/p ERPC on 01/13 showing bile leak treated with biliary stent placement. Status post sphincterotomy, EGD portion showed large amount of blood in the stomach, 1 cm duodenal bulb ulcer, severe irregular mucosa at the GE junction with blood present. -CT abdomen pelvis showed biliary stent in place with pneumobilia but no signs mention of perforation. -Patient clinically improving. -LFTs trending down and MACEY drain decreasing in amount. - tolerating diet. rec -Continue with PPI IV twice daily, -Continue to monitor H&H. -Continue to monitor LFTs. -Monitor MACEY output -Recommend repeat EGD in 1 to 2 weeks either as inpatient vs outpatient. - will sign off. please call as needed. - Patient Problems (1) Abdominal pain, acute, epigastric Current Visit: Yes Status: Acute (2) Bile leak, postoperative Current Visit: Yes Status: Acute Subjective Date of service: 01/15/22 Principal diagnosis: Bile leak Interval history: Patient doing well. Denies any abdominal pain. Reports having nonbloody stool this morning. Objective - Constitutional Vitals: Temp Pulse Resp BP Pulse Ox 97.6 F 63 18 138/60 93 01/15/22 07:46 01/15/22 14:01 01/15/22 14:01 01/15/22 14:01 01/15/22 14:01 General appearance: no acute distress - EENT Eyes: EOM intact ENT: hearing intact - Respiratory Respiratory effort: normal - Cardiovascular Rhythm: regular Heart Sounds: Present: S1 & S2 - Gastrointestinal General gastrointestinal: Present: soft, non-tender, non-distended - Integumentary Integumentary: Present: clear, warm - Neurologic Neurological: alert and oriented x3 - Labs CBC & Chem 7: 01/15/22 13:43 01/15/22 13:43 Labs: Laboratory Results - last 24 hr 01/15/22 01/15/22 13:43 13:43 WBC 10.2 RBC 3.02 L Hgb 9.5 L Hct 28.7 L MCV 95 H MCH 32 MCHC 33 RDW 13.8 Plt Count 329 Sodium 131 L D Potassium 4.6 Chloride 99.7 Carbon Dioxide 26 Anion Gap 10 BUN 11 Creatinine 1.0 Estimated GFR > 60 BUN/Creatinine Ratio 11 Glucose 91 Calcium 7.6 L Total Bilirubin 0.90 AST 42 H ALT 40 Alkaline Phosphatase 155 H Total Protein 5.0 L Albumin 2.3 L Albumin/Globulin Ratio 0.9
[2022-01-15] MEDS: ENOXAPARIN 40 MG/0.4 ML INJ SUB-Q SCH (21:42)
[2022-01-16] MEDS: PIPERACIL/TAZOBACTA 4.5/NS 100 4.5 GM/100 ML VIAL IV SCH ×3 (00:30→15:20)
--- NOTE | 2022-01-16 09:02 | Fluoroscopy Report ---
INTRAOPERATIVE FLUOROSCOPY: ERCP INDICATION: History of bile leak. TECHNIQUE: Intraoperative spot images were obtained during the procedure. FINDINGS: Submitted imaging demonstrate expected positioning of a plastic biliary stent. Please see the report for the procedure for further details. Fluoroscopy Time: 1.1 minutes. Fluoroscopy Images: 4. Signer Name: Khris Moreira MD Signed: 01/16/2022 8:58 AM Workstation Name: [email or web address]
[2022-01-16] MEDS: DOCUSATE SODIUM 100 MG CAP PO SCH ×2 (09:41→22:03)
[2022-01-16] MEDS: PANTOPRAZOLE 40 MG INJ IV SCH ×2 (09:43→22:02)
--- NOTE | 2022-01-16 11:39 | Discharge Summary ---
Providers - Providers Date of Admission: 01/04/22 08:21 Date of discharge: 01/16/22 Attending physician: BEHZAD QUACH MD 01/04/22 05:09 Consult to Physician [CONS] Stat Comment: To consult on patient upon admission Consulting Provider: FCO RAYMOND Physician Instructions: IV Abx, Pain control, IV Fluids; hospitalist admit Reason For Exam: acute cholelithiasis with cholecystitis 01/04/22 12:25 Consult to Case Management [CONS] Routine Services Needed at Discharge: Senior Game Advisor Notified:: patient case manager 01/11/22 10:23 Consult to Physician [CONS] Routine Comment: Consulting Provider: REBECCA MADDEN Physician Instructions: Reason For Exam: ERCP Primary care physician: OVIDIO ZAYAS Hospitalization Condition: Stable Disposition: 30 STILL A PATIENT Exam - Physical Exam Narrative exam: GENERAL: Obese. In no acute distress. HEENT: Normocephalic. Atraumatic. CHEST/LUNGS: CTAB on room air HEART/CARDIOVASCULAR: RRR. No murmur, rubs or gallops appreciated. ABDOMEN: Obese. MACEY drain without drainage. +BS. ND. SKIN: No rashes noted. NEURO: No focal motor deficit. Follows all commands. MUSCULOSKELETAL: No joint effusion EXTREMITIES: No cyanosis, clubbing. BLE non-pitting edema. PSYCH: Cooperative. - Constitutional Vitals: Temp Pulse Resp BP Pulse Ox 97.3 F L 85 18 118/62 97 01/16/22 07:33 01/16/22 07:33 01/15/22 20:31 01/16/22 07:33 01/16/22 07:49 Plan Care Plan Goals: Please schedule follow-up appointment with Dr. Raymond within 1 week. Please schedule up a follow up appointment with Dr. Madden at his clinic in 1 to 2 weeks. Please take all medications as prescribed. If you notice any excruciating abdominal pain, coughing or throwing up blood please return to the emergency department. Follow up with: [facility] [Provider Group] - 7-10 days FCO RAYMOND MD [Staff Physician] - 7 Days REBECCA MADDEN MD [Staff Physician] - 14 Days Prescriptions: oxyCODONE /ACETAMINOPHEN [Percocet 5/325] 1 tab PO Q6HR PRN 5 Days #20 tablet PRN Reason: Pain Pantoprazole [Protonix] 40 mg PO QDAY 30 Days #30 tablet
--- NOTE | 2022-01-16 18:34 | Progress Note ---
Assessment and Plan Pt with acute calculous cholecystitis. No pancreatitis no jaundice. Pain already with signs of improvement. Will advance to clear liq diet at thsi time. Cont iv ab for leukocytosis. Patient is hungry today. PEYTON output is now being monitored directly to suction. Patient status post ERCP and upper endoscopy. There are some abnormality that is poorly understood at the GE junction. There is also duodenal ulcer. There was blood in the stomach. Sphincterotomy completed stent placed. PEY[place] output appears to have decreased. Patient feels better. He is opal a soft diet. Pt with continued drainage from the [place]yton. Will continue to maintain the peyton for now. Repeat hida in am. if bile leak documented will dc pt with peyton in place. Subjective Date of service: 01/16/22 Patient Reports: Positive: no new complaints Narrative: Pt with continued drainage from the [place]yton. Will continue to maintain the peyton for now. Repeat hida in am. if bile leak documented will dc pt with peyton in place. Objective Vital Signs - 12hr 01/16/22 01/16/22 01/16/22 07:33 07:49 11:36 Temperature 97.3 F L 98.3 F Pulse Rate 85 83 Blood Pressure 118/62 103/64 O2 Sat by Pulse 97 97 97 Oximetry 01/16/22 16:18 Temperature 98.3 F Pulse Rate 88 Blood Pressure 104/61 O2 Sat by Pulse 96 Oximetry - Labs 01/15/22 13:43 01/15/22 13:43
--- NOTE | 2022-01-16 21:27 | Progress Note ---
Assessment and Plan Assessment and plan: #Acute cholecystitis-resolved #bile leakage -s/p open cholecystectomy on 01/09 -CMP labs improved -currently with MACEY drain; output significantly decreased -GI & General Surgery consulted, assistance appreciated -HIDA scan suggestive of biliary leak; ERCP performed on 01/13 and biliary stent was placed -CT scan negative for bile leak and esophageal perforation; patient tolerating diet -repeat HIDA scan ordered by #Intractable nausea/vomiting- resolved -likely secondary to above #Hematuria-resolved #history of nephrolithiasis -blood seen in UA and in zimmerman sample, resolved -continue zimmerman while inpatient -Patient will follow with Urologist as outpatient #Hypertension -IV hydralazine as needed #Hyperglycemia -will continue to monitor through labs -patient likely pre-diabetic due to size -no intervention at this time #Morbid obesity #Weight loss counseling #Exercise counseling -BMI 46.6 -Counseled patient on the importance of weight loss, incorporating exercise, and dietary changes (lean meats, fresh fruits and vegetables, and water intake). Patient expresses understanding. -Patient may benefit from bariatric surgical consultation as outpatient -Time: +15 min #Advanced care planning -Disease education conducted, care plan discussed, diagnoses discussed, prognosis discussed, and patient acknowledges understanding with care plan -Time: +30 min History Interval history: No acute events overnight. Patient reports feeling well and has no acute complaints at this time. Hospitalist Physical - Physical exam Narrative exam: GENERAL: Obese. In no acute distress. HEENT: Normocephalic. Atraumatic. CHEST/LUNGS: CTAB on room air HEART/CARDIOVASCULAR: RRR. No murmur, rubs or gallops appreciated. ABDOMEN: Obese. MACEY drain without drainage. +BS. ND. SKIN: No rashes noted. NEURO: No focal motor deficit. Follows all commands. MUSCULOSKELETAL: No joint effusion EXTREMITIES: No cyanosis, clubbing. BLE non-pitting edema. PSYCH: Cooperative. - Constitutional Vitals: Temp Pulse Resp BP Pulse Ox 98.1 F 85 20 119/76 95 01/16/22 19:13 01/16/22 19:13 01/16/22 19:13 01/16/22 19:13 01/16/22 19:13 General appearance: Present: no acute distress, well-nourished, obese (Morbidly obese) HEART Score - HEART Score Troponin: Troponin T < 0.010 ng/mL (0.00-0.029) 01/04/22 03:06 Results - Labs CBC & Chem 7: 01/15/22 13:43 01/15/22 13:43 Labs: Laboratory Last Values WBC 10.2 K/mm3 (4.5-11.0) 01/15/22 13:43 RBC 3.02 M/mm3 (3.65-5.03) L 01/15/22 13:43 Hgb 9.5 gm/dl (11.8-15.2) L 01/15/22 13:43 Hct 28.7 % (35.5-45.6) L 01/15/22 13:43 MCV 95 fl (84-94) H 01/15/22 13:43 MCH 32 pg (28-32) 01/15/22 13:43 MCHC 33 % (32-34) 01/15/22 13:43 RDW 13.8 % (13.2-15.2) 01/15/22 13:43 Plt Count 329 K/mm3 (140-440) 01/15/22 13:43 Lymph % (Auto) 8.3 % (13.4-35.0) L 01/10/22 03:40 [place] % (Auto) 6.1 % (0.0-7.3) 01/10/22 03:40 Eos % (Auto) 0.1 % (0.0-4.3) 01/10/22 03:40 Baso % (Auto) 0.1 % (0.0-1.8) 01/10/22 03:40 Lymph # (Auto) 0.8 K/mm3 (1.2-5.4) L 01/10/22 03:40 [place] # (Auto) 0.6 K/mm3 (0.0-0.8) 01/10/22 03:40 Eos # (Auto) 0.0 K/mm3 (0.0-0.4) 01/10/22 03:40 Baso # (Auto) 0.0 K/mm3 (0.0-0.1) 01/10/22 03:40 Add Manual Diff Complete 01/14/22 05:17 Total Counted 100 01/14/22 05:17 Seg Neutrophils % 85.4 % (40.0-70.0) H 01/10/22 03:40 Seg Neuts % (Manual) 73.0 % (40.0-70.0) H 01/14/22 05:17 Band Neutrophils % 0 % 01/14/22 05:17 Lymphocytes % (Manual) 16.0 % (13.4-35.0) 01/14/22 05:17 Reactive Lymphs % (Man) 0 % 01/14/22 05:17 Monocytes % (Manual) 5.0 % (0.0-7.3) 01/14/22 05:17 Eosinophils % (Manual) 3.0 % (0.0-4.3) 01/14/22 05:17 Basophils % (Manual) 0 % (0.0-1.8) 01/14/22 05:17 Metamyelocytes % 3.0 % 01/14/22 05:17 Myelocytes % 0 % 01/14/22 05:17 Promyelocytes % 0 % 01/14/22 05:17 Blast Cells % 0 % 01/14/22 05:17 Nucleated RBC % Not Reportable 01/14/22 05:17 Seg Neutrophils # 7.9 K/mm3 (1.8-7.7) H 01/10/22 03:40 Seg Neutrophils # Man 5.7 K/mm3 (1.8-7.7) 01/14/22 05:17 Band Neutrophils # 0.0 K/mm3 01/14/22 05:17 Lymphocytes # (Manual) 1.2 K/mm3 (1.2-5.4) 01/14/22 05:17 Abs React Lymphs (Man) 0.0 K/mm3 01/14/22 05:17 Monocytes # (Manual) 0.4 K/mm3 (0.0-0.8) 01/14/22 05:17 Eosinophils # (Manual) 0.2 K/mm3 (0.0-0.4) 01/14/22 05:17 Basophils # (Manual) 0.0 K/mm3 (0.0-0.1) 01/14/22 05:17 Metamyelocytes # 0.2 K/mm3 01/14/22 05:17 Myelocytes # 0.0 K/mm3 01/14/22 05:17 Promyelocytes # 0.0 K/mm3 01/14/22 05:17 Blast Cells # 0.0 K/mm3 01/14/22 05:17 WBC Morphology Not Reportable 01/14/22 05:17 Hypersegmented Neuts Not Reportable 01/14/22 05:17 Hyposegmented Neuts Not Reportable 01/14/22 05:17 Hypogranular Neuts Not Reportable 01/14/22 05:17 Smudge Cells Not Reportable 01/14/22 05:17 Toxic Granulation Not Reportable 01/14/22 05:17 Toxic Vacuolation Not Reportable 01/14/22 05:17 Dohle Bodies Not Reportable 01/14/22 05:17 Pelger-Huet Anomaly Not Reportable 01/14/22 05:17 Dawit Rods Not Reportable 01/14/22 05:17 Platelet Estimate Consistent w auto 01/14/22 05:17 Clumped Platelets Not Reportable 01/14/22 05:17 Plt Clumps, EDTA Not Reportable 01/14/22 05:17 Large Platelets Not Reportable 01/14/22 05:17 Giant Platelets Not Reportable 01/14/22 05:17 Platelet Satelliting Not Reportable 01/14/22 05:17 Plt Morphology Comment Not Reportable 01/14/22 05:17 RBC Morphology Not Reportable 01/14/22 05:17 Dimorphic RBCs Not Reportable 01/14/22 05:17 Polychromasia Rare 01/14/22 05:17 Hypochromasia Few 01/14/22 05:17 Poikilocytosis Not Reportable 01/14/22 05:17 Anisocytosis Not Reportable 01/14/22 05:17 Microcytosis Not Reportable 01/14/22 05:17 Macrocytosis Not Reportable 01/14/22 05:17 Spherocytes Not Reportable 01/14/22 05:17 Pappenheimer Bodies Not Reportable 01/14/22 05:17 Sickle Cells Not Reportable 01/14/22 05:17 Target Cells Not Reportable 01/14/22 05:17 Tear Drop Cells Not Reportable 01/14/22 05:17 Ovalocytes Not Reportable 01/14/22 05:17 Helmet Cells Not Reportable 01/14/22 05:17 [place] Bodies Not Reportable 01/14/22 05:17 [place] Rings Not Reportable 01/14/22 05:17 Noble Cells Not Reportable 01/14/22 05:17 Bite Cells Not Reportable 01/14/22 05:17 Crenated Cell Not Reportable 01/14/22 05:17 Elliptocytes Not Reportable 01/14/22 05:17 Acanthocytes (Spur) Not Reportable 01/14/22 05:17 Rouleaux Not Reportable 01/14/22 05:17 Hemoglobin C Crystals Not Reportable 01/14/22 05:17 Schistocytes Not Reportable 01/14/22 05:17 Malaria parasites Not Reportable 01/14/22 05:17 Aníbal Bodies Not Reportable 01/14/22 05:17 Hem Pathologist Commnt No 01/14/22 05:17 PT 14.9 Sec. (12.2-14.9) 01/09/22 04:59 INR 1.05 (0.87-1.13) 01/09/22 04:59 Sodium 131 mmol/L (137-145) L D 01/15/22 13:43 Potassium 4.6 mmol/L (3.6-5.0) 01/15/22 13:43 Chloride 99.7 mmol/L (98-107) 01/15/22 13:43 Carbon Dioxide 26 mmol/L (22-30) 01/15/22 13:43 Anion Gap 10 mmol/L 01/15/22 13:43 BUN 11 mg/dL (9-20) 01/15/22 13:43 Creatinine 1.0 mg/dL (0.8-1.3) 01/15/22 13:43 Estimated GFR > 60 ml/min 01/15/22 13:43 BUN/Creatinine Ratio 11 % 01/15/22 13:43 Glucose 91 mg/dL (75-100) 01/15/22 13:43 POC Glucose 110 mg/dL (70-105) H 01/12/22 21:40 Calcium 7.6 mg/dL (8.4-10.2) L 01/15/22 13:43 Total Bilirubin 0.90 mg/dL (0.1-1.2) 01/15/22 13:43 AST 42 units/L (5-40) H 01/15/22 13:43 ALT 40 units/L (7-56) 01/15/22 13:43 Alkaline Phosphatase 155 units/L (35-129) H 01/15/22 13:43 Troponin T < 0.010 ng/mL (0.00-0.029) 01/04/22 03:06 Total Protein 5.0 g/dL (6.3-8.2) L 01/15/22 13:43 Albumin 2.3 g/dL (3.9-5) L 01/15/22 13:43 Albumin/Globulin Ratio 0.9 % 01/15/22 13:43 Lipase 71 units/L (13-60) H 01/09/22 19:54 Urine Color Dark yellow (Yellow) 01/07/22 14:25 Urine Turbidity Clear (Clear) 01/07/22 14:25 Urine pH 5.0 (5.0-7.0) 01/07/22 14:25 Ur Specific [place] 1.015 (1.003-1.030) 01/07/22 14:25 Urine Protein 100 mg/dl mg/dL (Negative) 01/07/22 14:25 Urine Glucose (UA) Negative mg/dL (Negative) 01/07/22 14:25 Urine Ketones 160 mg/dL (Negative) 01/07/22 14:25 Urine Blood 3+ (Negative) 01/07/22 14:25 Urine Nitrite Negative (Negative) 01/07/22 14:25 Ur Reducing Substances Not Reportable 01/07/22 14:25 Urine Bilirubin Negative (Negative) 01/07/22 14:25 Urine Ictotest Not Reportable 01/07/22 14:25 Urine Urobilinogen < 2.0 mg/dL (<2.0) 01/07/22 14:25 Ur Leukocyte Esterase Negative (Negative) 01/07/22 14:25 Urine WBC (Auto) 6.0 /HPF (0.0-6.0) 01/07/22 14:25 Urine RBC (Auto) 6.0 /HPF (0.0-6.0) 01/07/22 14:25 U Epithel Cells (Auto) 1.0 /HPF (0-13.0) 01/04/22 Unknown Urine Bacteria (Auto) 1+ /HPF (Negative) 01/04/22 Unknown Hyaline Casts 4 /LPF 01/04/22 Unknown Urine Mucus Few /HPF 01/07/22 14:25 SARS-CoV-2 (PCR) Negative (Negative) 01/09/22 12:00 Blood Type O POSITIVE 01/09/22 15:50 Antibody Screen Negative 01/09/22 15:50 Crossmatch See Detail 01/09/22 15:50 Zimmerman/IV: Voiding Method Toilet Active Medications - Current Medications Current Medications: Generic Name Dose Route Start Last Admin Trade Name Freq PRN Reason Stop Dose Admin Acetaminophen 650 mg 01/04/22 05:15 01/06/22 21:35 Acetaminophen 325 Mg Tab PO 650 mg Q4H PRN Administration Pain MILD(1-3)/Fever >100.5/HIGUERA Docusate Sodium 100 mg 01/08/22 11:00 01/16/22 09:41 Docusate Sodium 100 Mg Cap PO Not Given BID [facility] Enoxaparin Sodium 40 mg 01/04/22 22:00 01/15/22 21:42 Enoxaparin 40 Mg/0.4 Ml Inj SUB-Q 40 mg QDAY@2200 [facility] Administration Protocol Hydralazine HCl 10 mg 01/04/22 10:00 Hydralazine 20 Mg/1 Ml Inj IV Q4HR PRN Hypertension Piperacillin Sod/Tazobactam Sod 4.5 gm in 100 mls @ 200 mls/hr 01/11/22 08:00 01/16/22 15:20 Zosyn/Ns 4.5gm/100ml IV 200 mls/hr Q8H ZEB Administration Protocol Metoclopramide HCl 10 mg 01/04/22 05:15 01/04/22 05:36 Metoclopramide 10 Mg/2 Ml Inj IV 10 mg Q6H PRN Administration Nausea And Vomiting Morphine Sulfate 2 mg 01/04/22 10:00 01/12/22 07:10 Morphine 2 Mg/1 Ml Inj IV 2 mg Q4H PRN Administration Pain, Moderate (4-6) Ondansetron HCl 4 mg 01/04/22 10:00 01/04/22 20:57 Ondansetron 4 Mg/2 Ml Inj IV 4 mg Q4H PRN Administration Nausea And Vomiting Pantoprazole Sodium 40 mg 01/13/22 22:00 01/16/22 09:43 Pantoprazole 40 Mg Inj IV 40 mg BID ZEB Administration Sodium Chloride 10 ml 01/04/22 10:00 01/16/22 09:43 Sodium Chloride 0.9% 10 Ml Flush Syringe IV 10 ml BID ZEB Administration Nutrition/Malnutrition Assess - Dietary Evaluation Nutrition/Malnutrition Findings: Nutrition Notes Start: 01/12/22 17:44 Freq: Status: Active Protocol: Document 01/12/22 17:44 DENIS (Rec: 01/12/22 18:00 DENIS [id number]) Nutrition Notes Need for Assessment generated from: LOS Initial or Follow up Assessment Current Diagnosis Hypertension Other Pertinent Diagnosis s/p Cholecystitis/ Cholelithiasis, Hyperglycemia. Current Diet NPO (since 01/12 00:01). Labs/Tests 01/12: BUN 29, Glu 104, Ca 7.8 . Pertinent Medications 01/12: Nutritionally unremarkable. 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 Weight Status Morbidly Obese Subjective/Other Information RD consult for LOS assessment. Pt currently on NPO due to preparation for HIDA scann, according to Progress notes. Pt's PO intake of meals has been Good (100%) and well tolerated, according to ADL notes. Pt is on Room Air, O2 saturation @ 96%, according to Physical Assessment History notes. Pt presents Bilateral-Foot Pitting Edema 2+, according to Physical Assessment History notes. Procedure on 01/09: Laparoscopic Cholecystectomy conversion to open cholangiogram, well tolerated, according to Operative Report notes. Pt shows a abdominal MACEY drain as sign of concern for skin risk at the time, according to Physical Assessment History notes. Percent of energy/protein needs met: Pt currently on NPO. When pertinent, start Prescribed Cardiac/Consistent Carbohydrates Diet provides for energy/protein needs (1, 977 Kcal/86 g) during LOS. Burn Absent Trauma Absent GI Symptoms None Food Allergy No Skin Integrity/Comment Abdominal MACEY Drain. Current % PO Good (75-100%) Minimum of two criteria No Fluid Accumulation Mild (non-severe) Reduced Practice Advisor Strength N/A (non-severe) Protein-Calorie Malnutrition N\A #1 Nutrition Diagnosis Overweight/obesity Etiology Possibly associated to lifestyle. As Evidenced by Signs and Symptoms BMI: 49.6 Kg/m2. Is patient on ventilator? No Is Patient Ambulatory and/or Out of Bed Yes REE-([facility]-ambulatory/OOB) [ 7438.737 [id number]] Kcal/Kg value to use for calculation 13 Approximate Energy Requirements Using 2 kcal/Kg Calculation Used for Recommendations Kcal/kg Additional Notes Protein: <2.5 g/Kg IBW; <188 g /day. Fluids: 1 ml/Kcal, or as per MD. Nutrition Intervention Change Diet Order: When pertinent, start Cardiac/ Consistent Carbohydrates Diet, continue as tolerated. Goal #1 Adjust the dietary intervention to better serve Pt's needs and clinical conditions during LOS. Follow-Up By: 01/19/22 Additional Comments Continue monitoring food tolerance, %PO intake of meals , and BM.
[2022-01-16] MEDS: ENOXAPARIN 40 MG/0.4 ML INJ SUB-Q SCH (22:02)
[2022-01-17] MEDS: PIPERACIL/TAZOBACTA 4.5/NS 100 4.5 GM/100 ML VIAL IV SCH ×3 (00:39→17:30)
--- NOTE | 2022-01-17 10:49 | Nuclear Medicine Report ---
NUCLEAR MEDICINE HEPATOBILIARY SCAN INDICATION / CLINICAL INFORMATION: bile leak. Biliary stent. TECHNIQUE: Radiotracer: Tc-99m mebrofenin (by IV): 5.5 mCi. Gallbladder Stimulant: None used. COMPARISON: CT abdomen pelvis 01/14/2022 FINDINGS: HEPATIC ACTIVITY: Normal. BILIARY ACTIVITY: Normal. Common bile duct activity at 10 minutes. GALLBLADDER ACTIVITY: Surgically absent SMALL BOWEL ACTIVITY: Normal at 20 minutes. No bile leak IMPRESSION: 1. No scintigraphic evidence for bile leak Signer Name: Ge Lopez MD Signed: 01/17/2022 10:44 AM Workstation Name: [id number]
[2022-01-17] MEDS: DOCUSATE SODIUM 100 MG CAP PO SCH ×2 (11:02→22:00)
[2022-01-17] MEDS: PANTOPRAZOLE 40 MG INJ IV SCH ×2 (11:04→21:14)
--- NOTE | 2022-01-17 12:29 | Progress Note ---
Assessment and Plan Pt with acute calculous cholecystitis. No pancreatitis no jaundice. Pain already with signs of improvement. Will advance to clear liq diet at thsi time. Cont iv ab for leukocytosis. Patient is hungry today. MACEY output is now being monitored directly to suction. Patient status post ERCP and upper endoscopy. There are some abnormality that is poorly understood at the GE junction. There is also duodenal ulcer. There was blood in the stomach. Sphincterotomy completed stent placed. MACEY output appears to have decreased. Patient feels better. Pt feeling well. Wounds reviewed and are healing with colton in place. Plan to remove half of colton today and the remainder in the am. Macey will also be removed in the am as HIDA scan now without evidence of bile leak. Subjective Date of service: 01/17/22 Narrative: Pt feeling well. Wounds reviewed and are healing with colton in place. Plan to remove half of colton today and the remainder in the am. Macey will also be removed in the am as HIDA scan now without evidence of bile leak. Objective Vital Signs - 12hr 01/17/22 01/17/22 01/17/22 03:20 07:37 11:36 Temperature 97.8 F 98.0 F 98.0 F Pulse Rate 89 84 89 Respiratory 20 20 Rate Blood Pressure 119/67 118/81 111/51 O2 Sat by Pulse 96 95 98 Oximetry - Labs 01/15/22 13:43 01/15/22 13:43
--- NOTE | 2022-01-17 12:36 | Progress Note ---
Assessment and Plan Assessment and plan: #Acute calculus cholecystitis-resolved #bile leakageresolved -s/p open cholecystectomy on 01/09 -CMP labs improved -currently with MACEY drain; planning to remove tomorrow morning (per general surgery). Starting clear liquid diet. -GI & General Surgery consulted, appreciate recs. -HIDA scan suggestive of biliary leak; ERCP performed on 01/13 and biliary stent was placed. -CT scan negative for bile leak and esophageal perforation; patient tolerating diet -Repeat HIDA scan unremarkable for bile leak #Intractable nausea/vomiting- resolved -likely secondary to above #Hematuria-resolved #history of nephrolithiasis -blood seen in UA and in zimmerman sample, resolved -continue zimmerman while inpatient -Patient will follow with Urologist as outpatient #Hypertension -IV hydralazine as needed #Hyperglycemia -will continue to monitor through labs -patient likely pre-diabetic due to size -no intervention at this time #Morbid obesity #Weight loss counseling #Exercise counseling -BMI 46.6 -Counseled patient on the importance of weight loss, incorporating exercise, and dietary changes (lean meats, fresh fruits and vegetables, and water intake). Patient expresses understanding. -Patient may benefit from bariatric surgical consultation as outpatient -Time: +15 min #Advanced care planning -Disease education conducted, care plan discussed, diagnoses discussed, prognosis discussed, and patient acknowledges understanding with care plan -Time: +30 min #Discharge planning - Patient is pending removal of colton and J-tube tomorrow by general surgery. Ability to tolerate oral intake. - Case management has been made aware. - Discharge is tentatively tomorrow morning. Disposition Plan: continue medical management Total Time Spent with Patient (Minutes): 45 minutes History Interval history: No acute events overnight. Hospitalist Physical - Constitutional Vitals: Temp Pulse Resp BP Pulse Ox 98.0 F 89 20 111/51 98 01/17/22 11:36 01/17/22 11:36 01/17/22 11:36 01/17/22 11:36 01/17/22 11:36 General appearance: Present: no acute distress, well-nourished, obese (Morbidly obese) - EENT Eyes: Present: PERRL, EOM intact ENT: hearing intact, clear oral mucosa, dentition normal - Neck Neck: Present: supple, normal ROM - Respiratory Respiratory effort: normal Respiratory: bilateral: CTA - Cardiovascular Rhythm: regular Heart Sounds: Present: S1 & S2 - Extremities Extremities: no ischemia, pulses intact, pulses symmetrical, No edema, normal temperature, normal color Peripheral Pulses: within normal limits - Abdominal General gastrointestinal: soft, tender (Appropriate tenderness at J-tube site), non-distended, normal bowel sounds - Integumentary Integumentary: Present: clear, warm, dry - Psychiatric Psychiatric: appropriate mood/affect, intact judgment & insight, memory intact, cooperative - Neurologic Neurologic: CNII-XII intact, moves all extremities - Allied Health Allied health notes reviewed: nursing HEART Score - HEART Score Troponin: Troponin T < 0.010 ng/mL (0.00-0.029) 01/04/22 03:06 Results - Labs CBC & Chem 7: 01/15/22 13:43 01/15/22 13:43 Labs: Laboratory Last Values WBC 10.2 K/mm3 (4.5-11.0) 01/15/22 13:43 RBC 3.02 M/mm3 (3.65-5.03) L 01/15/22 13:43 Hgb 9.5 gm/dl (11.8-15.2) L 01/15/22 13:43 Hct 28.7 % (35.5-45.6) L 01/15/22 13:43 MCV 95 fl (84-94) H 01/15/22 13:43 MCH 32 pg (28-32) 01/15/22 13:43 MCHC 33 % (32-34) 01/15/22 13:43 RDW 13.8 % (13.2-15.2) 01/15/22 13:43 Plt Count 329 K/mm3 (140-440) 01/15/22 13:43 Lymph % (Auto) 8.3 % (13.4-35.0) L 01/10/22 03:40 Anderson % (Auto) 6.1 % (0.0-7.3) 01/10/22 03:40 Eos % (Auto) 0.1 % (0.0-4.3) 01/10/22 03:40 Baso % (Auto) 0.1 % (0.0-1.8) 01/10/22 03:40 Lymph # (Auto) 0.8 K/mm3 (1.2-5.4) L 01/10/22 03:40 Anderson # (Auto) 0.6 K/mm3 (0.0-0.8) 01/10/22 03:40 Eos # (Auto) 0.0 K/mm3 (0.0-0.4) 01/10/22 03:40 Baso # (Auto) 0.0 K/mm3 (0.0-0.1) 01/10/22 03:40 Add Manual Diff Complete 01/14/22 05:17 Total Counted 100 01/14/22 05:17 Seg Neutrophils % 85.4 % (40.0-70.0) H 01/10/22 03:40 Seg Neuts % (Manual) 73.0 % (40.0-70.0) H 01/14/22 05:17 Band Neutrophils % 0 % 01/14/22 05:17 Lymphocytes % (Manual) 16.0 % (13.4-35.0) 01/14/22 05:17 Reactive Lymphs % (Man) 0 % 01/14/22 05:17 Monocytes % (Manual) 5.0 % (0.0-7.3) 01/14/22 05:17 Eosinophils % (Manual) 3.0 % (0.0-4.3) 01/14/22 05:17 Basophils % (Manual) 0 % (0.0-1.8) 01/14/22 05:17 Metamyelocytes % 3.0 % 01/14/22 05:17 Myelocytes % 0 % 01/14/22 05:17 Promyelocytes % 0 % 01/14/22 05:17 Blast Cells % 0 % 01/14/22 05:17 Nucleated RBC % Not Reportable 01/14/22 05:17 Seg Neutrophils # 7.9 K/mm3 (1.8-7.7) H 01/10/22 03:40 Seg Neutrophils # Man 5.7 K/mm3 (1.8-7.7) 01/14/22 05:17 Band Neutrophils # 0.0 K/mm3 01/14/22 05:17 Lymphocytes # (Manual) 1.2 K/mm3 (1.2-5.4) 01/14/22 05:17 Abs React Lymphs (Man) 0.0 K/mm3 01/14/22 05:17 Monocytes # (Manual) 0.4 K/mm3 (0.0-0.8) 01/14/22 05:17 Eosinophils # (Manual) 0.2 K/mm3 (0.0-0.4) 01/14/22 05:17 Basophils # (Manual) 0.0 K/mm3 (0.0-0.1) 01/14/22 05:17 Metamyelocytes # 0.2 K/mm3 01/14/22 05:17 Myelocytes # 0.0 K/mm3 01/14/22 05:17 Promyelocytes # 0.0 K/mm3 01/14/22 05:17 Blast Cells # 0.0 K/mm3 01/14/22 05:17 WBC Morphology Not Reportable 01/14/22 05:17 Hypersegmented Neuts Not Reportable 01/14/22 05:17 Hyposegmented Neuts Not Reportable 01/14/22 05:17 Hypogranular Neuts Not Reportable 01/14/22 05:17 Smudge Cells Not Reportable 01/14/22 05:17 Toxic Granulation Not Reportable 01/14/22 05:17 Toxic Vacuolation Not Reportable 01/14/22 05:17 Dohle Bodies Not Reportable 01/14/22 05:17 Pelger-Huet Anomaly Not Reportable 01/14/22 05:17 Dawit Rods Not Reportable 01/14/22 05:17 Platelet Estimate Consistent w auto 01/14/22 05:17 Clumped Platelets Not Reportable 01/14/22 05:17 Plt Clumps, EDTA Not Reportable 01/14/22 05:17 Large Platelets Not Reportable 01/14/22 05:17 Giant Platelets Not Reportable 01/14/22 05:17 Platelet Satelliting Not Reportable 01/14/22 05:17 Plt Morphology Comment Not Reportable 01/14/22 05:17 RBC Morphology Not Reportable 01/14/22 05:17 Dimorphic RBCs Not Reportable 01/14/22 05:17 Polychromasia Rare 01/14/22 05:17 Hypochromasia Few 01/14/22 05:17 Poikilocytosis Not Reportable 01/14/22 05:17 Anisocytosis Not Reportable 01/14/22 05:17 Microcytosis Not Reportable 01/14/22 05:17 Macrocytosis Not Reportable 01/14/22 05:17 Spherocytes Not Reportable 01/14/22 05:17 Pappenheimer Bodies Not Reportable 01/14/22 05:17 Sickle Cells Not Reportable 01/14/22 05:17 Target Cells Not Reportable 01/14/22 05:17 Tear Drop Cells Not Reportable 01/14/22 05:17 Ovalocytes Not Reportable 01/14/22 05:17 Helmet Cells Not Reportable 01/14/22 05:17 [place] Bodies Not Reportable 01/14/22 05:17 Robson Rings Not Reportable 01/14/22 05:17 Scotts Cells Not Reportable 01/14/22 05:17 Bite Cells Not Reportable 01/14/22 05:17 Crenated Cell Not Reportable 01/14/22 05:17 Elliptocytes Not Reportable 01/14/22 05:17 Acanthocytes (Spur) Not Reportable 01/14/22 05:17 Rouleaux Not Reportable 01/14/22 05:17 Hemoglobin C Crystals Not Reportable 01/14/22 05:17 Schistocytes Not Reportable 01/14/22 05:17 Malaria parasites Not Reportable 01/14/22 05:17 Aníbal Bodies Not Reportable 01/14/22 05:17 Hem Pathologist Commnt No 01/14/22 05:17 PT 14.9 Sec. (12.2-14.9) 01/09/22 04:59 INR 1.05 (0.87-1.13) 01/09/22 04:59 Sodium 131 mmol/L (137-145) L D 01/15/22 13:43 Potassium 4.6 mmol/L (3.6-5.0) 01/15/22 13:43 Chloride 99.7 mmol/L (98-107) 01/15/22 13:43 Carbon Dioxide 26 mmol/L (22-30) 01/15/22 13:43 Anion Gap 10 mmol/L 01/15/22 13:43 BUN 11 mg/dL (9-20) 01/15/22 13:43 Creatinine 1.0 mg/dL (0.8-1.3) 01/15/22 13:43 Estimated GFR > 60 ml/min 01/15/22 13:43 BUN/Creatinine Ratio 11 % 01/15/22 13:43 Glucose 91 mg/dL (75-100) 01/15/22 13:43 POC Glucose 110 mg/dL (70-105) H 01/12/22 21:40 Calcium 7.6 mg/dL (8.4-10.2) L 01/15/22 13:43 Total Bilirubin 0.90 mg/dL (0.1-1.2) 01/15/22 13:43 AST 42 units/L (5-40) H 01/15/22 13:43 ALT 40 units/L (7-56) 01/15/22 13:43 Alkaline Phosphatase 155 units/L (35-129) H 01/15/22 13:43 Troponin T < 0.010 ng/mL (0.00-0.029) 01/04/22 03:06 Total Protein 5.0 g/dL (6.3-8.2) L 01/15/22 13:43 Albumin 2.3 g/dL (3.9-5) L 01/15/22 13:43 Albumin/Globulin Ratio 0.9 % 01/15/22 13:43 Lipase 71 units/L (13-60) H 01/09/22 19:54 Urine Color Dark yellow (Yellow) 01/07/22 14:25 Urine Turbidity Clear (Clear) 01/07/22 14:25 Urine pH 5.0 (5.0-7.0) 01/07/22 14:25 Ur Specific Mccune 1.015 (1.003-1.030) 01/07/22 14:25 Urine Protein 100 mg/dl mg/dL (Negative) 01/07/22 14:25 Urine Glucose (UA) Negative mg/dL (Negative) 01/07/22 14:25 Urine Ketones 160 mg/dL (Negative) 01/07/22 14:25 Urine Blood 3+ (Negative) 01/07/22 14:25 Urine Nitrite Negative (Negative) 01/07/22 14:25 Ur Reducing Substances Not Reportable 01/07/22 14:25 Urine Bilirubin Negative (Negative) 01/07/22 14:25 Urine Ictotest Not Reportable 01/07/22 14:25 Urine Urobilinogen < 2.0 mg/dL (<2.0) 01/07/22 14:25 Ur Leukocyte Esterase Negative (Negative) 01/07/22 14:25 Urine WBC (Auto) 6.0 /HPF (0.0-6.0) 01/07/22 14:25 Urine RBC (Auto) 6.0 /HPF (0.0-6.0) 01/07/22 14:25 U Epithel Cells (Auto) 1.0 /HPF (0-13.0) 01/04/22 Unknown Urine Bacteria (Auto) 1+ /HPF (Negative) 01/04/22 Unknown Hyaline Casts 4 /LPF 01/04/22 Unknown Urine Mucus Few /HPF 01/07/22 14:25 SARS-CoV-2 (PCR) Negative (Negative) 01/09/22 12:00 Blood Type O POSITIVE 01/09/22 15:50 Antibody Screen Negative 01/09/22 15:50 Crossmatch See Detail 01/09/22 15:50 Zimmerman/IV: Voiding Method Toilet Active Medications - Current Medications Current Medications: Generic Name Dose Route Start Last Admin Trade Name Freq PRN Reason Stop Dose Admin Acetaminophen 650 mg 01/04/22 05:15 01/06/22 21:35 Acetaminophen 325 Mg Tab PO 650 mg Q4H PRN Administration Pain MILD(1-3)/Fever >100.5/HIGUERA Docusate Sodium 100 mg 01/08/22 11:00 01/17/22 11:02 Docusate Sodium 100 Mg Cap PO Not Given BID [facility] Enoxaparin Sodium 40 mg 01/04/22 22:00 01/16/22 22:02 Enoxaparin 40 Mg/0.4 Ml Inj SUB-Q 40 mg QDAY@2200 [facility] Administration Protocol Hydralazine HCl 10 mg 01/04/22 10:00 Hydralazine 20 Mg/1 Ml Inj IV Q4HR PRN Hypertension Piperacillin Sod/Tazobactam Sod 4.5 gm in 100 mls @ 200 mls/hr 01/11/22 08:00 01/17/22 10:50 Zosyn/Ns 4.5gm/100ml IV 200 mls/hr Q8H [facility] Administration Protocol Metoclopramide HCl 10 mg 01/04/22 05:15 01/04/22 05:36 Metoclopramide 10 Mg/2 Ml Inj IV 10 mg Q6H PRN Administration Nausea And Vomiting Morphine Sulfate 2 mg 01/04/22 10:00 01/12/22 07:10 Morphine 2 Mg/1 Ml Inj IV 2 mg Q4H PRN Administration Pain, Moderate (4-6) Ondansetron HCl 4 mg 01/04/22 10:00 01/04/22 20:57 Ondansetron 4 Mg/2 Ml Inj IV 4 mg Q4H PRN Administration Nausea And Vomiting Pantoprazole Sodium 40 mg 01/13/22 22:00 01/17/22 11:04 Pantoprazole 40 Mg Inj IV 40 mg BID ZEB Administration Sodium Chloride 10 ml 01/04/22 10:00 01/17/22 11:04 Sodium Chloride 0.9% 10 Ml Flush Syringe IV 10 ml BID ZEB Administration Nutrition/Malnutrition Assess - Dietary Evaluation Nutrition/Malnutrition Findings: Nutrition Notes Start: 01/12/22 17:44 Freq: Status: Active Protocol: Document 01/12/22 17:44 DENIS (Rec: 01/12/22 18:00 DENIS [email or web address]) Nutrition Notes Need for Assessment generated from: LOS Initial or Follow up Assessment Current Diagnosis Hypertension Other Pertinent Diagnosis s/p Cholecystitis/ Cholelithiasis, Hyperglycemia. Current Diet NPO (since 01/12 00:01). Labs/Tests 01/12: BUN 29, Glu 104, Ca 7.8 . Pertinent Medications 01/12: Nutritionally unremarkable. Height 5 ft 10 in Weight 157.1 kg [place] Body Weight (kg) 75.45 BMI 49.6 Intake Prior to Admission Good Weight change and time frame Pt denies having loss body weight RESEARCH SPEC. Weight Status Morbidly Obese Subjective/Other Information RD consult for LOS assessment. Pt currently on NPO due to preparation for HIDA scann, according to Progress notes. Pt's PO intake of meals has been Good (100%) and well tolerated, according to ADL notes. Pt is on Room Air, O2 saturation @ 96%, according to Physical Assessment History notes. Pt presents Bilateral-Foot Pitting Edema 2+, according to Physical Assessment History notes. Procedure on 01/09: Laparoscopic Cholecystectomy conversion to open cholangiogram, well tolerated, according to Operative Report notes. Pt shows a abdominal MACEY drain as sign of concern for skin risk at the time, according to Physical Assessment History notes. Percent of energy/protein needs met: Pt currently on NPO. When pertinent, start Prescribed Cardiac/Consistent Carbohydrates Diet provides for energy/protein needs (1, 977 Kcal/86 g) during LOS. Burn Absent Trauma Absent GI Symptoms None Food Allergy No Skin Integrity/Comment Abdominal MACEY Drain. 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 As Evidenced by Signs and Symptoms BMI: 49.6 Kg/m2. Is patient on ventilator? No Is Patient Ambulatory and/or Out of Bed Yes REE-([place]-ambulatory/OOB) [ 3070.925 [id number]] Kcal/Kg value to use for calculation 13 Approximate Energy Requirements Using 2 kcal/Kg Calculation Used for Recommendations Kcal/kg Additional Notes Protein: <2.5 g/Kg IBW; <188 g /day. Fluids: 1 ml/Kcal, or as per MD. Nutrition Intervention Change Diet Order: When pertinent, start Cardiac/ Consistent Carbohydrates Diet, continue as tolerated. Goal #1 Adjust the dietary intervention to better serve Pt's needs and clinical conditions during LOS. Follow-Up By: 01/19/22 Additional Comments Continue monitoring food tolerance, %PO intake of meals , and BM.
[2022-01-17] MEDS: ENOXAPARIN 40 MG/0.4 ML INJ SUB-Q SCH (21:14)
[2022-01-18] MEDS: PIPERACIL/TAZOBACTA 4.5/NS 100 4.5 GM/100 ML VIAL IV SCH ×2 (00:25→09:47)
[2022-01-18] MEDS: PANTOPRAZOLE 40 MG INJ IV SCH (09:47)
[2022-01-18] MEDS: DOCUSATE SODIUM 100 MG CAP PO SCH (09:47)
--- NOTE | 2022-01-18 10:51 | Progress Note ---
Assessment and Plan Pt with acute calculous cholecystitis. No pancreatitis no jaundice. Pain already with signs of improvement. Will advance to clear liq diet at thsi time. Cont iv ab for leukocytosis. Patient is hungry today. MACEY output is now being monitored directly to suction. Patient status post ERCP and upper endoscopy. There are some abnormality that is poorly understood at the GE junction. There is also duodenal ulcer. There was blood in the stomach. Sphincterotomy completed stent placed. MACEY output appears to have decreased. Patient feels better. Patient status post laparoscopic cholecystectomy for ruptured gangrenous cholecystitis. He also was noted to have a bile leak postoperatively and is status post ERCP. At this time the HIDA scan shows no further bile leak. Kingsley removed and replaced with Steri-Strips today. MACEY drain is also removed. Patient is surgically cleared for discharge follow-up with me in 1 week. Subjective Date of service: 01/18/22 Patient Reports: Positive: no new complaints, feels better Narrative: Patient status post laparoscopic cholecystectomy for ruptured gangrenous cholecystitis. He also was noted to have a bile leak postoperatively and is status post ERCP. At this time the HIDA scan shows no further bile leak. Lara removed and replaced with Steri-Strips today. MACEY drain is also removed. Patient is surgically cleared for discharge follow-up with me in 1 week. Objective Vital Signs - 12hr 01/17/22 01/18/22 01/18/22 23:15 04:23 08:06 Temperature 98.0 F 97.8 F 97.5 F L Pulse Rate 95 H 90 86 Respiratory 20 20 18 Rate Blood Pressure 131/68 125/72 127/77 O2 Sat by Pulse 96 95 95 Oximetry 01/18/22 10:00 Temperature Pulse Rate Respiratory Rate Blood Pressure O2 Sat by Pulse 98 Oximetry - Labs 01/15/22 13:43 01/15/22 13:43
[2022-01-18 11:31] VITALS: BP 124/71
--- NOTE | 2022-01-18 11:40 | Discharge Summary ---
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 Procedures: ERCP with placement of biliary stent; conversion of laparoscopic cholecystectomy to open cholecystectomy Hospital course: Patient is a 66-year-old male past medical history of morbid obesity, hypertension, noninsulin-dependent type 2 diabetes mellitus who presented to the ED with complaints of acute onset of persistent epigastric pain with radiation to his right upper quadrant. Pain was associated with intractable nausea and vomiting for the previous 2 days. Patient endorsed not being able to tolerate p.o. intake due to his persistent pain and vomiting. He denied any fevers, chills, dizziness, syncope, diarrhea, chest pain, shortness of breath, back pain, recent trauma or heavy lifting, hematemesis, hemoptysis, cough, palpitations, testicular pain, hematuria, or lower back pain. On presentation, the patient was found to be hemodynamically stable with mild tachycardia with a heart rate of 102. The patient's labs were remarkable for WBC of 15.9. Patient underwent CT abdomen and pelvis with contrast that was consistent with acute cholecystitis. General surgery was consulted for further management, the patient was started on IV antibiotics with pain control. Patient underwent laparoscopic cholecystectomy with conversion to open attempted cholangiogram due to there being gangrenous changes in the gallbladder with intraoperative bleeding. Patient required placement of a MACEY drain by general surgery during the same procedure. Gastroenterology was consulted, and the patient underwent placement of biliary stent in the common bile duct on 01/13/2022. Patient has since completed his antibiotic course, and he is tolerating p.o. intake. Patient will follow-up with general surgery in approximately 1 week. Patient will follow-up with gastroenterology and 4 to 6 weeks for reevaluation of the biliary drain and possible removal. Patient is medically clear for discharge. Disposition: 01 HOME / SELF CARE / HOMELESS Final Discharge Diagnosis (Prints w/discharge instructions): Acute calculus cholecystitis, biliary leak, intractable nausea vomiting, hematuria, history of nephrolithiasis, hypertension, hyperglycemia, morbid obesity Time spent for discharge: 45 min Core Measure Documentation - Palliative Care Palliative Care/ Comfort Measures: Not Applicable - Core Measures Any of the following diagnoses?: none Exam - Constitutional Vitals: Temp Pulse Resp BP Pulse Ox 98.3 F 91 H 16 124/71 95 01/18/22 11:30 01/18/22 11:30 01/18/22 11:30 01/18/22 11:30 01/18/22 11:30 General appearance: Present: no acute distress, well-nourished, obese - EENT Eyes: Present: PERRL, EOM intact ENT: hearing intact, clear oral mucosa, dentition normal - Neck Neck: Present: supple, normal ROM - Respiratory Respiratory effort: normal Respiratory: bilateral: CTA - Cardiovascular Rhythm: regular Heart Sounds: Present: S1 & S2 - Extremities Extremities: no ischemia, pulses intact, pulses symmetrical, No edema, normal temperature, normal color Peripheral Pulses: within normal limits - Abdominal General gastrointestinal: Present: soft, tender (Appropriate tenderness at incision site), non-distended, normal bowel sounds Male genitourinary: Present: deferred - Rectal Rectal Exam: deferred - Integumentary Integumentary: Present: clear, warm, dry - Musculoskeletal Musculoskeletal: strength equal bilaterally - Psychiatric Psychiatric: appropriate mood/affect, intact judgment & insight, memory intact, cooperative - Neurologic Neurologic: CNII-XII intact, moves all extremities - Allied Health Allied health notes reviewed: nursing Plan Activity: advance as tolerated Diet: low salt, diabetic Additional Instructions: Patient is a 66-year-old male past medical history of morbid obesity, hypertension, noninsulin-dependent type 2 diabetes mellitus who presented to the ED with complaints of acute onset of persistent epigastric pain with radiation to his right upper quadrant. Pain was associated with intractable nausea and vomiting for the previous 2 days. Patient endorsed not being able to tolerate p.o. intake due to his persistent pain and vomiting. He denied any fevers, chills, dizziness, syncope, diarrhea, chest pain, shortness of breath, back pain, recent trauma or heavy lifting, hematemesis, hemoptysis, cough, palpitations, testicular pain, hematuria, or lower back pain. On presentation, the patient was found to be hemodynamically stable with mild tachycardia with a heart rate of 102. The patient's labs were remarkable for WBC of 15.9. Patient underwent CT abdomen and pelvis with contrast that was consistent with acute cholecystitis. General surgery was consulted for further management, the patient was started on IV antibiotics with pain control. Patient underwent laparoscopic cholecystectomy with conversion to open attempted cholangiogram due to there being gangrenous changes in the gallbladder with intraoperative bleeding. Patient required placement of a MACEY drain by general surgery during the same procedure. Gastroenterology was consulted, and the patient underwent placement of biliary stent in the common bile duct on 01/13/2022. Patient has since completed his antibiotic course, and he is tolerating p.o. intake. Patient will follow-up with general surgery in [facility] 1 week. Patient will follow-up with gastroenterology and 4 to 6 weeks for reevaluation of the biliary drain and possible removal. Patient is medically clear for discharge. Care Plan Goals: Please schedule follow-up appointment with Dr. Raymond within 1 week. Please schedule up a follow up appointment with Dr. Madden at his clinic in 1 to 2 weeks. Please take all medications as prescribed. If you notice any excruciating abdominal pain, coughing or throwing up blood please return to the emergency department. Assessment: Patient is a 66-year-old male past medical history of morbid obesity, hypertension, noninsulin-dependent type 2 diabetes mellitus who presented to the ED with complaints of acute onset of persistent epigastric pain with radiation to his right upper quadrant. Pain was associated with intractable nausea and vomiting for the previous 2 days. Patient endorsed not being able to tolerate p.o. intake due to his persistent pain and vomiting. He denied any fevers, chills, dizziness, syncope, diarrhea, chest pain, shortness of breath, back pain, recent trauma or heavy lifting, hematemesis, hemoptysis, cough, palpitations, testicular pain, hematuria, or lower back pain. On presentation, the patient was found to be hemodynamically stable with mild tachycardia with a heart rate of 102. The patient's labs were remarkable for WBC of 15.9. Patient underwent CT abdomen and pelvis with contrast that was consistent with acute cholecystitis. General surgery was consulted for further management, the patient was started on IV antibiotics with pain control. Patient underwent laparoscopic cholecystectomy with conversion to open attempted cholangiogram due to there being gangrenous changes in the gallbladder with intraoperative bleeding. Patient required placement of a MACEY drain by general surgery during the same procedure. Gastroenterology was consulted, and the patient underwent placement of biliary stent in the common bile duct on 01/13/2022. Patient has since completed his antibiotic course, and he is tolerating p.o. intake. Patient will follow-up with general surgery in approximately 1 week. Patient will follow-up with gastroenterology and 4 to 6 weeks for reevaluation of the biliary drain and possible removal. Patient is medically clear for discharge. Follow up with: [facility] [Provider Group] - 7-10 days FCO RAYMOND MD [Staff Physician] - 7 Days REBECCA MADDEN MD [Staff Physician] - 6 Weeks Prescriptions: oxyCODONE /ACETAMINOPHEN [Percocet 5/325] 1 tab PO Q6HR PRN 5 Days #20 tablet PRN Reason: Pain Pantoprazole [Protonix TAB] 40 mg PO BID #60 tablet
== END 2022-01-18 14:20 | disposition home or self-care (01) | DRG 415 ==
LOC: ED 00:30 → 3A 08:21 → 4A 12:10
PROVIDERS: ADMIT Internal Medicine; ATTEND Student in an Organized Health Care Education/Training Program
PROC: 0FT40ZZ Resection of Gallbladder, Open Approach (ICD-10-PCS; principal; 2022-01-09)
PROC: 0FJ44ZZ Inspection of Gallbladder, Percutaneous Endoscopic Approach (ICD-10-PCS; 2022-01-09)
PROC: 0F798DZ Dilation of Common Bile Duct with Intraluminal Device, Via Natural or Artificial Opening Endoscopic (ICD-10-PCS; 2022-01-13)
PROC: 0DJ08ZZ Inspection of Upper Intestinal Tract, Via Natural or Artificial Opening Endoscopic (ICD-10-PCS; 2022-01-13)
DX: K80.00 Calculus of gallbladder with acute cholecystitis without obstruction (principal); K91.89 Other postprocedural complications and disorders of digestive system; Z68.42 Body mass index [BMI] 45.0-49.9, adult; E66.01 Morbid (severe) obesity due to excess calories; Z20.822 Contact with and (suspected) exposure to COVID-19; I10 Essential (primary) hypertension; E11.65 Type 2 diabetes mellitus with hyperglycemia; R31.9 Hematuria, unspecified; Z87.891 Personal history of nicotine dependence; Z71.3 Dietary counseling and surveillance; K66.0 Peritoneal adhesions (postprocedural) (postinfection); Y83.8 Other surgical procedures as the cause of abnormal reaction of the patient, or of later complication, without mention of misadventure at the time of the procedure; K26.9 Duodenal ulcer, unspecified as acute or chronic, without hemorrhage or perforation; K82.A1 Gangrene of gallbladder in cholecystitis
CPT/HCPCS: 36415; 71045; 71046; 74018; 74177; 74178; 74330; 78226; 80048; 80053; 81001; 82962; 83690; 84484; 85007; 85025; 85027; 85610; 86850; 86900; 86901; 86920; 87086; 88304; 88342; 93005; 93306; G0378; J3490; A9537; C1726; C1874; C8929; C9113; J0330; J0690; J1100; J1170; J1610; J1650; J1885; J1940; J2250; J2270; J2370; J2405; J2543; J2704; J2765; J3010; J7030; J7040; J7120; Q9967; U0003